=== PATIENT | male | born 1950 | race Caucasian/White ===

== ENCOUNTER → 2021-09-06 11:00 | Outpatient (BNVA) | payer MEDICARE, MEDICAID, SELFPAY | PROVIDERS: PCP Internal Medicine; Referring Provider Internal Medicine; Visit Provider Nurse Practitioner | DX: K92.1 Melena (principal); K21.9 Gastro-esophageal reflux disease without esophagitis; R10.13 Epigastric pain; R19.7 Diarrhea, unspecified | CPT/HCPCS: 99202 ==

== ENCOUNTER 2021-09-10 10:00 | Outpatient (REF) | payer MEDICARE, MEDICAID, SELFPAY ==
[2021-09-10 10:39] LABS: MANUAL DIFF FLAG NO
[2021-09-10 11:02] LABS: Basophils Absolute Auto 0.1 X10*3/uL (0.0-0.2); Basophils Percent Auto 1.2 % (0-2); Eosinophils Absolute Auto 0.3 X10*3/uL (0.0-0.4); Eosinophils Percent Auto 3.4 % (0-4); Hematocrit 48.8 % (42.0-52.0); Hemoglobin 16.6 g/dl (14.0-18.0); Imm Gran Abs Auto 0.03 X10*3/uL (0.00-0.03); Imm Gran Pct Auto 0.4 % (0.0-0.4); Lymphocytes Absolute Auto 2.5 X10*3/uL (1.2-4.9); Lymphocytes Percent Auto 29.3 % (20-40); Mean Corpuscular Hemoglobin 29.7 pg (27.0-33.0); Mean Corpuscular Volume 87.5 fL (80.0-98.0); Mean Platelet Volume 11.1 fL (9.4-12.4); Monocytes Absolute Auto 0.6 X10*3/uL (0.1-1.2); Monocytes Percent Auto 6.9 % (2-11); Neutrophils Percent Auto 58.8 % (45-73); Platelet Count 218 X10*3/uL (160-400); Red Blood Count 5.58 X10*6/uL (4.60-5.80); Red Cell Distribution Width 12.7 % (11.0-16.0); White Blood Count 8.5 X10*3/uL (4.8-10.8)
[2021-09-10 11:41] LABS: Alanine Aminotransferase 20 U/L (0-40); Albumin Level 4.3 g/dL (3.5-5.0); Alkaline Phosphatase 61 U/L (39-117); Anion Gap 15 (12-20); Aspartate Amino Transferase 12 U/L (5-37); Bilirubin Total 0.8 mg/dL (0.0-1.0); Blood Urea Nitrogen 13 mg/dL (9-16); Calcium 9.6 mg/dL (8.4-10.2); Carbon Dioxide 25 mmol/L (22-29); Chloride 107 mmol/L (96-108); Cholesterol 155 mg/dL; Estimated Glomerular Filt Rate > 60; Glucose Fasting 243 mg/dL (60-99); HDL Cholesterol 36 mg/dL; LDL Cholesterol Calculated 76 mg/dl; Potassium 3.9 mmol/L (3.3-5.1); Sodium 143 mmol/L (135-145); Total Protein 7.5 g/dL (6.5-8.0); Triglycerides 218 mg/dL
[2021-09-10 11:48] LABS: Ferritin 124 ng/mL (20-250); TSH reflex Free T4 2.34 uIU/mL (0.32-4.0)
[2021-09-10 13:45] LABS: Creatinine Urine 137.85 mg/dL; Microalbum/Creatinine Ratio Ur 22.4 ug/mg cr
[2021-09-12 06:51] LABS: Transglutaminase Ab IgG 2.6 U/mL; Transglutaminase IgA <1.0 U/mL
[2021-09-14 14:41] LABS: Vitamin D 25-OH, D2 <4 ng/mL; Vitamin D 25-OH, D3 21 ng/mL; Vitamin D 25-OH, Total 21 ng/mL (30-100)
== END 2021-09-10 10:01 | disposition home or self-care (01) ==
LOC: HO.LAB 10:00
PROVIDERS: Absent Provider Internal Medicine; Visit Provider Nurse Practitioner
DX: K92.1 Melena (principal); R10.13 Epigastric pain; E11.9 Type 2 diabetes mellitus without complications; E78.5 Hyperlipidemia, unspecified; R19.7 Diarrhea, unspecified; E55.9 Vitamin D deficiency, unspecified; Z79.4 Long term (current) use of insulin
CPT/HCPCS: 36415; 80053; 80061; 82043; 82306; 82728; 84443; 85025; 86364

== ENCOUNTER 2021-09-13 13:07 | Outpatient (REF) | payer MEDICARE, MEDICAID, SELFPAY | END 2021-09-13 13:08 | disposition home or self-care (01) | LOC: HO.LNP 13:07 | PROVIDERS: Visit Provider Nurse Practitioner | DX: R10.13 Epigastric pain (principal); K92.1 Melena | CPT/HCPCS: 87338 ==

== ENCOUNTER → 2021-11-07 12:44 | Outpatient (BNVA) | payer OTHER, MEDICAID, SELFPAY | PROVIDERS: PCP Internal Medicine; Referring Provider Internal Medicine; Visit Provider Nurse Practitioner | DX: A04.8 Other specified bacterial intestinal infections (principal); K21.9 Gastro-esophageal reflux disease without esophagitis; R19.7 Diarrhea, unspecified | CPT/HCPCS: 99212 ==

== ENCOUNTER 2023-03-20 16:19 | Emergency (ER) | payer OTHER, SELFPAY ==
--- NOTE | ~2023-03-20 | CT_ITS ---
EXAMINATION: CT ABDOMEN AND PELVIS WITHOUT CONTRAST CLINICAL INFORMATION: Left flank pain COMPARISON: None available. TECHNIQUE: Multidetector volumetric imaging was performed from the superior aspect of the liver through the pubic symphysis. Sagittal and coronal reformatted images were obtained on the technologist's workstation. This CT examination was performed using dose optimization techniques as appropriate, variously including the following: *Automated exposure control *Adjustment of mA and/or kV according to patient size (this includes techniques or standardized protocols for targeted exams where dose is matched to indication/reason for exam; i.e. extremities or head) *Use of iterative reconstruction technique DLP: 676 mGy-cm FINDINGS: There is breathing artifact present somewhat degrading portions of the study. LUNG BASES: There is some atelectatic change seen at both lung bases. No pleural or pericardial effusion. Coronary artery calcifications are present. There is a right pericardial cyst present. LIVER, GALLBLADDER, AND BILIARY TREE: The liver is upper limits of normal in size at 19 cm in vertical span.. No focal hepatic lesion or biliary ductal dilatation is present. The gallbladder is unremarkable with no evidence of radiopaque gallstones, gallbladder wall thickening, or obvious pericholecystic inflammatory changes. PANCREAS: Unremarkable. No abnormal mass or peripancreatic inflammatory change. SPLEEN: Unremarkable. An accessory spleen is present. ADRENAL GLANDS: Unremarkable. KIDNEYS AND URETERS: Right kidney: No hydronephrosis noted. Contour is a little irregular with some perinephric stranding present. Within the upper pole there is a 2 mm nonobstructing calculus. Within the interpolar region there is a 3 mm nonobstructing calculus. Right ureter appears unremarkable. Left kidney: There is moderate left hydronephrosis present with columnization of the left ureter down to the left ureterovesical junction where there is a 7 x 4 mm distal left ureteral calculus there is perirenal and periureteral fat stranding present. There is also noted to be a simple appearing 3 cm left renal cyst which does not require follow-up. Within the upper pole there are 4 and 3 mm nonobstructing calculi. BLADDER: Unremarkable. GASTROINTESTINAL TRACT: No dilated loops of large or small bowel are evident. No free air or free fluid is seen. There is colonic diverticulosis without acute diverticulitis appreciated. The appendix appears unremarkable. ABDOMINAL WALL: No significant hernia is appreciated. LYMPH NODES: No lymphadenopathy appreciated. VASCULAR: There is moderate aortoiliac artery calcified plaque present. No abdominal aortic aneurysm. PELVIC VISCERA: Enlarged prostate gland. OSSEOUS STRUCTURES: No suspicious destructive bony lesion is identified. There is multilevel degenerative disc disease and facet arthropathy within the lower lumbar spine as well as what appears to be right L5 pars defect. CT/CT abdomen pelvis wo IV con IMPRESSION: 7 x 4 mm obstructing distal left ureteral calculus at the level of the ureterovesical junction with moderate left hydronephrosis and hydroureter. Bilateral nephrolithiasis. Fleischner guidelines were followed.
[2023-03-20 16:23] VITALS: BP 178/85; PULSE 74; O2SAT 99
--- NOTE | 2023-03-20 16:24 | ED.GENADULT ---
HPI - General Adult General Chief complaint: Abdominal Pain Stated complaint: Abdominal pain, L flank pain Time Seen by Provider: 03/20/23 19:04 Source: patient Mode of arrival: EMS Limitations: language barrier (Ukrainian-speaking medical scheduler utilized) History of Present Illness HPI narrative: patient is a 72-year-old male presents emergency department for evaluation of left abdominal/flank pain since earlier this morning. With associated nausea and multiple episodes of vomiting without hematemesis. He reports that his urine appears dark in nature, with decreased urinary output. Reports a history of kidney stones, and states that this feels consistent with prior episodes. Has been many years since he had kidney stones does not have a urologist that he follows with. Denies any Fevers, chills, right-sided abdominal pain diarrhea, constipation, bloody or dark stools, chest pain, shortness of breath. Related Data Home Medications Medication Instructions Recorded Confirmed blood sugar diagnostic #10 ea 03/18/21 03/18/21 lisinopril 10 mg tablet 10 mg PO DAILY 03/18/21 03/18/21 metformin 500 mg tablet,extended 500 mg PO BID 03/18/21 03/18/21 release 24 hr pen needle, diabetic 31 gauge x #1,200 03/18/21 03/18/2101/06 Previous Rx's Medication Instructions Recorded atorvastatin 10 mg tablet 10 mg PO DAILY 90 days #90 tabs 03/18/21 insulin glargine 100 unit/mL (3 14 unit (0.14 mL) subcut BEDTIME 03/18/21 mL) subcutaneous pen 90 days #12.6 mL omeprazole 40 mg capsule,delayed 40 mg PO BID 30 days #60 caps 09/10/21 release peg 3350-electrolytes 236 240 ml PO Q10M 1 day #4,000 mL 09/12/21 gram-22.74 gram-6.74 gram-5.86 gram solution (Golytely) bismuth subsalicylate 262 mg 2 tab PO QID 14 days #112 tabs 09/17/21 chewable tablet (Bismuth) metronidazole 500 mg tablet 1,000 mg PO BID 14 days #56 tabs 09/17/21 tetracycline 500 mg capsule 1,000 mg PO Q12H 14 days #56 caps 09/17/21 cholecalciferol (vitamin D3) 25 25 mcg PO DAILY 90 days #90 caps 05/30/22 mcg (1,000 unit) capsule Allergies Allergy/AdvReac Type Severity Reaction Status Date / Time No Known Allergies Allergy Verified 03/20/23 16:34 Review of Systems Review of Systems: Constitutional : No Weight loss, No Fever, No Chills ENT/Mouth :? No sore throat, No Rhinorrhea Eyes: No Swelling, No Redness Cardiovascular : No Chest Pain, No SOB, No Edema Respiratory : No Cough, No Sputum, No Wheezing Gastrointestinal : Positive Nausea, Positive Vomiting, no Diarrhea, positive abdominal pain, No Hematochezia, No Melena Genitourinary : as per HPI? Musculoskeletal : No joint pain, No Myalgias, No Joint Swelling Skin : No Skin Lesions, No rash Neuro : No Weakness, No Numbness, No Dizziness, No Headache Psych : No Anxiety/Panic, No Depression Heme/Lymph: No Bruising, No Lymphadenopathy Endocrine : No Polyuria, No Polydipsia Yes all other systems are reviewed and are negative [facility] Past Medical History Attestation statement: The following information was validated with the patient. Source: old records reviewed Medical History Bloody stools Dyslipidemia Essential hypertension Obese Type 2 diabetes mellitus, with long-term current use of insulin Surgical History No pertinent past surgical history Family History Family History Mother No problems noted. Father No problems noted. Social History Social History Housing: Apartment Alcohol intake: never Patient Tobacco Use Status: Never used Tobacco Smoked in Last 30 Days: No e-Cigarette/Vaping Use: Never Used Second Hand Smoke Exposure: No Use of substances other than those prescribed or required for medical reasons: No Advance Directives: No Advance Directives Information Provided: Yes service: No Current occupational status: disabled Physical Exam ED Vital Signs: Vital Signs - 24 hr 03/20/23 16:33 03/20/23 22:38 Temperature 97 F Pulse Rate 66 64 Respiratory Rate 16 18 Blood Pressure 160/76 H 141/83 H Pulse Oximetry 95 95 Oxygen Delivery Method Room Air Room Air BMI result Body Mass Index 31.9 Appearance: Alert.?Oriented to person, place and time. No acute distress.?Normal affect. Eyes: Pupils equal, round and reactive to light.? ENT: Pharynx normal.?? Neck: Normal inspection.? Neck supple.?? CVS: Heart sounds normal. Normal heart rate and rhythm.? Pulses normal.?? Respiratory: No respiratory distress.? Lung sounds clear to auscultation bilaterally?? Abdomen: Soft and non-tender. Normoactive bowel sounds. no CVA tenderness?? Skin: Skin warm and dry.? Normal skin color.? Extremities: No lower extremity edema.? Neuro: Moves all extremities spontaneously. Sensation intact bilaterally. No focal neuro deficits. Ambulates with normal steady gait. Course Course Course Narrative: This is a rapid medical exam: Additional HPI, ROS, PE not included below will be deferred to primary provider. Patient is a 72-year-old male presenting to the ED with complaint of left sided abdominal/flank pain since 11am today, history of renal calculi, states feel similar. Reports nausea and vomiting. States he only urinated once today and it was very dark. Received Toradol from EMS [employer]. States pain is 8 or 9/10 after receiving the Toradol. Plan: UA, labs Reevaluation(s) Reevaluation #1: CT revealing a 7 X 4 mm obstructing distal left ureteral calculus at ureterovesical junction with moderate hydronephrosis and hydroureter. Hypertrophy these findings with patient and he verbalizes understanding. He reports that his pain is significantly improved when compared to presentation to the emergency department. He is tolerating oral intake. Discharge patient with prescription for tamsulosin, prednisone, and outpatient follow-up with Urology, provided with contact information. Time: 23:46 Medications Administered Discontinued Medications Generic Name Dose Route Start Last Admin Trade Name Freq PRN Reason Stop Dose Admin Sodium Chloride 1,000 mls @ 999 mls/hr 03/20/23 21:15 03/20/23 22:12 Ns IV 03/20/23 22:15 999 mls/hr .Q1H1M KIMI Administration Ondansetron HCl 4 mg 03/20/23 21:02 03/20/23 22:11 Ondansetron Hcl 4 Mg/2 Ml Vial IVPUSH 07/28/23 21:03 4 mg ONCE ONE Administration Medical Decision Making Medical Decision Making [facility] Narrative: patient is a 72-year-old male With past medical history of GERD, type 2 diabetes, dyslipidemia, hypertension presents emergency department for evaluation of flank/abdominal pain as per HPI. At the time my examination he is overall well-appearing, nontoxic, afebrile, without tachycardia. He received Toradol IV via EMS prior to arrival and he reports that this did help his pain significantly. Will obtain CBC to evaluate for leukocytosis/ anemia, CMP and lipase to evaluate for abnormal electrolytes /abnormal renal function/ abnormal hepatic/biliary function, and Urinalysis. will obtain CT of the abdomen and pelvis for further evaluation, concern for renal calculi, obstructive ureteral calculi, hydronephrosis, lower suspicion for diverticulitis, colitis, bowel obstruction, appendicitis Differential Diagnosis Differential Diagnoses: The differential diagnosis associated with the presentation includes ( as noted above) Admission/Observation Consideration of admission/observation: Escalation of care including admission/observation considered ( I considered hospital admission for abdominal pain, see course narrative for further detail) Lab Data [facility] Lab Attestation statement: I reviewed the patient's lab results. CBC revealing a leukocytosis likely leukmoid reaction from volume loss with vomiting, CMP overall unremarkable aside from mildly elevated BUN, urinalysis is without evidence of urinary tract infection 03/20/23 19:18 03/20/23 19:18 Labs: Lab Results 03/20/23 03/20/23 03/20/23 Range/Units 19:18 19:18 19:18 WBC 15.8 H (4.8-10.8) X10*3/uL RBC 5.19 (4.60-5.80) X10*6/uL Hgb 15.7 (14.0-18.0) g/dl Hct 45.2 (42.0-52.0) % MCV 87.1 (80.0-98.0) fL MCH 30.3 (27.0-33.0) pg MCHC 34.7 (31.0-36.0) g/dl RDW 13.0 (11.0-16.0) % Plt Count 212 (160-400) X10*3/uL MPV 10.7 (9.4-12.4) fL Immature Gran % (Auto) 0.6 H (0.0-0.4) % Neut % (Auto) 88.1 H (45-73) % Lymph % (Auto) 7.6 L (20-40) % [place] % (Auto) 3.2 (2-11) % Eos % (Auto) 0.1 (0-4) % Baso % (Auto) 0.4 (0-2) % Lymph # (Auto) 1.2 (1.2-4.9) X10*3/uL [place] # (Auto) 0.5 (0.1-1.2) X10*3/uL Eos # (Auto) 0.0 (0.0-0.4) X10*3/uL Baso # (Auto) 0.1 (0.0-0.2) X10*3/uL Abs Immat Gran (auto) 0.10 H (0.00-0.03) X10*3/uL Absolute Neuts (auto) 13.9 H (2.0-8.3) x10*3/uL Absolute Nucleated RBC 0.000 (0.0-0.012) X10*3/uL Nucleated RBC % (auto) 0.0 (0.0-0.2) /100WBC Sodium 140 (135-145) mmol/L Potassium 4.3 (3.3-5.1) mmol/L Chloride 107 (96-108) mmol/L Carbon Dioxide 20 L (22-29) mmol/L Anion Gap 17 (12-20) BUN 21 H (9-16) mg/dL Creatinine 1.06 (0.5-1.4) mg/dL Estim Creat Clear Calc 70.3 Estimated GFR > 60 Random Glucose 166 H (60-115) mg/dL Calcium 9.6 (8.4-10.2) mg/dL Magnesium 1.9 (1.6-2.6) mg/dL Total Bilirubin 0.6 (0.0-1.0) mg/dL AST 12 (5-37) U/L ALT 13 (0-40) U/L Alkaline Phosphatase 50 (39-117) U/L Total Protein 7.2 (6.5-8.0) g/dL Albumin 4.3 (3.5-5.0) g/dL Urine Color Yellow Urine Appearance Turbid Urine pH 6.0 (5.0-9.0) Ur Specific [place] 1.025 (1.005-1.025) Urine Protein 100 (2+) H (Neg-Trace) mg/dL Urine Glucose (UA) Negative (Negative) mg/dL Urine Ketones 40 (Negative) mg/dL Urine Blood Large (3+) H (Negative) Urine Nitrite Negative (Negative) Ur Leukocyte Esterase Trace H (Negative) Urine RBC >20 H (0-2) /HPF Urine WBC 6-10 H (0-5) /HPF Ur Squamous Epith Cells 0-2 (0-2) /HPF Urine Bacteria None Seen (None Seen) Hyaline Casts 0-2 (0-2) /LPF Radiology Impression Discussion of test interpretation with radiology: I have reviewed the radiologist's reading. Radiologist Impression: CT/CT abdomen pelvis wo IV con IMPRESSION: 7 x 4 mm obstructing distal left ureteral calculus at the level of the ureterovesical junction with moderate left hydronephrosis and hydroureter. ? Bilateral nephrolithiasis. Independent Historian Clinical information obtained from an independent historian. History obtained from or confirmed by: EMS ( obtained history from EMS personnel confirming patient's reported HPI) Discharge Plan Discharge Clinical Impression: Hydronephrosis with urinary obstruction due to ureteral calculus Patient Disposition: Home, Self-Care Instructions: Hydronephrosis (ED), Ureteral Stones (ED) Additional Instructions: shwetha camacho Prescriptions: No Action omeprazole 40 mg capsule,delayed release(DR/EC) 40 mg PO BID 30 Days Qty: 60 3RF peg 3350-electrolytes [Golytely] 236-22.74-6.74 -5.86 gram recon soln 240 ml PO Q10M 1 Days Qty: 4000 0RF Rx Instructions: until fecal effluent is clear; do not exceed a total volume of 2,000 mL metronidazole 500 mg tablet 1,000 mg PO BID 14 Days Qty: 56 0RF bismuth subsalicylate [Bismuth] 262 mg tablet,chewable 2 tab PO QID 14 Days Qty: 112 0RF tetracycline 500 mg capsule 1,000 mg PO Q12H 14 Days Qty: 56 0RF cholecalciferol (vitamin D3) 25 mcg (1,000 unit) capsule 25 mcg PO DAILY 90 Days Qty: 90 1RF (DME) pen needle, diabetic 31 gauge x 5/16 needle See Rx Instructions subcut DAILY Qty: 1200 Rx Instructions: As directed metformin 500 mg tablet extended release 24 hr 500 mg PO BID lisinopril 10 mg tablet 10 mg PO DAILY (DME) FreeStyle Lite Strips Strip See Rx Instructions Not Applicable .MEDSUPPLY Qty: 10 Rx Instructions: As directed insulin glargine 100 unit/mL (3 mL) insulin pen 14 unit subcut BEDTIME 90 Days Qty: 12.6 3RF atorvastatin 10 mg tablet 10 mg PO DAILY 90 Days Qty: 90 1RF
[2023-03-20 16:33] VITALS: BP 160/76; PULSE 66; RESP 16; TEMP 36.1; O2SAT 95; BMI 31.9
[2023-03-20 19:26] LABS: MANUAL DIFF FLAG NO
[2023-03-20 19:27] LABS: Basophils Absolute Auto 0.1 X10*3/uL (0.0-0.2); Basophils Percent Auto 0.4 % (0-2); Eosinophils Percent Auto 0.1 % (0-4); Hematocrit 45.2 % (42.0-52.0); Hemoglobin 15.7 g/dl (14.0-18.0); Imm Gran Pct Auto 0.6 % (0.0-0.4); Lymphocytes Absolute Auto 1.2 X10*3/uL (1.2-4.9); Lymphocytes Percent Auto 7.6 % (20-40); Mean Corpuscular HGB Conc 34.7 g/dl (31.0-36.0); Mean Corpuscular Hemoglobin 30.3 pg (27.0-33.0); Mean Corpuscular Volume 87.1 fL (80.0-98.0); Mean Platelet Volume 10.7 fL (9.4-12.4); Monocytes Absolute Auto 0.5 X10*3/uL (0.1-1.2); Monocytes Percent Auto 3.2 % (2-11); Neutrophils Absolute Auto 13.9 x10*3/uL (2.0-8.3); Neutrophils Percent Auto 88.1 % (45-73); Platelet Count 212 X10*3/uL (160-400); Red Blood Count 5.19 X10*6/uL (4.60-5.80); White Blood Count 15.8 X10*3/uL (4.8-10.8)
[2023-03-20 19:30] LABS: Appearance Urine Turbid; Color Urine Yellow; Glucose Urine UA Negative (Negative); Leukocyte Esterase Urine Trace (Negative); Nitrite Urine Negative (Negative); Specific Gravity - Urine 1.025 (1.005-1.025); UMIC TRIGGER UACC YES; Urine Blood Large (3+) (Negative); Urine Ketones 40 mg/dL (Negative); Urine Protein 100 (2+) mg/dL (Neg-Trace)
[2023-03-20 19:34] LABS: Bacteria Urine None Seen (None Seen); Hyaline Casts Urine 0-2 /LPF (0-2); RBC Urine >20 /HPF (0-2); Squamous Epithelial Cell Urine 0-2 /HPF (0-2); UACC Culture Trigger YES
[2023-03-20 19:52] LABS: Alanine Aminotransferase 13 U/L (0-40); Albumin Level 4.3 g/dL (3.5-5.0); Alkaline Phosphatase 50 U/L (39-117); Anion Gap 17 (12-20); Aspartate Amino Transferase 12 U/L (5-37); Bilirubin Total 0.6 mg/dL (0.0-1.0); Blood Urea Nitrogen 21 mg/dL (9-16); Calcium 9.6 mg/dL (8.4-10.2); Carbon Dioxide 20 mmol/L (22-29); Chloride 107 mmol/L (96-108); Creatinine Clr Calc Pharmacy 70.3; Estimated Glomerular Filt Rate > 60; Glucose Random 166 mg/dL (60-115); Magnesium 1.9 mg/dL (1.6-2.6); Potassium 4.3 mmol/L (3.3-5.1); Sodium 140 mmol/L (135-145); Total Protein 7.2 g/dL (6.5-8.0)
[2023-03-20] MEDS: ondansetron HCL 4 MG/2 ML VIAL IVPUSH (22:11)
[2023-03-20] MEDS: 0.9 % Sodium Chloride 1,000 ML 999 ML IV (22:12)
[2023-03-20 22:38] VITALS: BP 141/83; PULSE 64; RESP 18; O2SAT 95
[2023-03-21 00:54] VITALS: BP 164/89; PULSE 69; RESP 18; TEMP 36.6; O2SAT 94
[2023-03-21] MEDS: predniSONE 20 MG TABLET PO (01:12)
[2023-03-21] MEDS: Tamsulosin HCL 0.4 MG CAPSULE PO (01:12)
== END 2023-03-21 01:23 | disposition home or self-care (01) ==
PROVIDERS: Physician Assistant Medical; Emergency Provider Emergency Medicine
DX: N13.2 Hydronephrosis with renal and ureteral calculous obstruction (principal); Z79.899 Other long term (current) drug therapy
CPT/HCPCS: 36415; 74176; 80053; 81001; 83735; 85025; 87086; 99284; J2405

== ENCOUNTER 2023-03-24 10:14 | Outpatient (AMB) | payer OTHER, SELFPAY ==
--- NOTE | 2023-03-24 10:24 | MHC.OFFVIS ---
Intake Vital Signs 03/24/23 10:28 Weight 213 lb 6.519 oz BP 130/88 Blood Pressure Location Lt radial Position Sitting Intake Visit Reasons: skin cyst rt upper back Intake Note: Patient is seen in office for evaluation and treatment of a right upper back cyst. Patient c/o: onset for many yrs, has pop it in the past, has a black dot, unable to squeeze it any longer, denies any other concerns Compression Molding Machine Setter Required: Yes Compression Molding Machine Setter Language: It Admin Name: Louisa VELOZ Information Interpreted: non-clinical & clinical Retail Merchandising Coordinator: Retail Merchandising Coordinator Present Accompanied by: Self / Same As Patient Allergies No Known Allergies Allergy (Verified 03/24/23 10:31) Medication List - Last Reconciled 03/24/23 by Duke Rios MD atorvastatin 10 mg PO DAILY 90 days bismuth subsalicylate (Bismuth) 2 tabs PO QID 14 days blood sugar diagnostic As directed cholecalciferol (vitamin D3) 25 mcg PO DAILY 90 days insulin glargine 14 units (0.14 mL) subcut BEDTIME 90 days lisinopril 10 mg PO DAILY metformin ER 500 mg PO BID metronidazole 1,000 mg (2 x 500 mg) PO BID 14 days omeprazole 40 mg PO BID 30 days peg 3350-electrolytes 236-22.74-6.74 -5.86 gram (Golytely) 240 mL PO Q10M 1 day pen needle, diabetic As directed prednisone 20 mg PO DAILY tamsulosin 0.4 mg PO BEDTIME tetracycline 1,000 mg (2 x 500 mg) PO Q12H 14 days HPI HPI Comments History of Present Illness Details 72-year-old male patient presenting with a sebaceous cyst of the back. He has had for many years and has gradually increased in size. He was occasionally able to pop the cyst however now he is unable to drain with pressure. Does have some discomfort associated with the cyst but denies any history of infection. He presents to discuss excision of this sebaceous cyst. [facility] Medical History Bloody stools Dyslipidemia Essential hypertension Obese Type 2 diabetes mellitus, with long-term current use of insulin Surgical History No pertinent past surgical history Family History Mother No problems noted. Father No problems noted. Social History Housing: Apartment Alcohol intake: never Patient Tobacco Use Status: Never used Tobacco e-Cigarette/Vaping Use: Never Used Second Hand Smoke Exposure: No service: No Current occupational status: disabled Review of Systems Const All systems reviewed & are unremarkable except as noted in HPI and below Denies chills, Denies fever(s), Denies headache(s), Denies poor appetite and Denies weakness ENT Denies headache(s) Card Denies chest pain, Denies irregular heart rhythm, Denies palpitations and Denies dyspnea Resp Denies cough, Denies excessive phlegm production and Denies dyspnea GI Denies abdominal pain, Denies bloating, Denies change in bowel habits, Denies constipation, Denies heartburn, Denies diarrhea, Denies nausea and Denies vomiting Denies difficulty urinating and Denies urinary frequency Musc Denies back pain, Denies muscle weakness and Denies numbness Skin/Breast Reports as per HPI, Denies changing lesions and Denies unusual bruising Neuro Denies headache(s), Denies numbness, Denies paresthesias and Denies weakness Psych Denies anxiety and Denies depression Endo Denies palpitations [place]/Lymph Denies lymphadenopathy Physical Exam Vital Signs: Last Vital Signs BP 130/88 03/24/23 10:28 Const General: cooperative and no acute distress Nutritional Appearance: well nourished Orientation/consciousness: patient oriented x3 Limitations: no limitations HEENT Head: Yes normocephalic and Yes atraumatic Ears: hearing grossly normal bilaterally Resp Effort & Inspection: normal respiratory effort, no audible wheezes, no cough and no respiratory distress Cardio Jugular venous distension: no JVD GI Inspection: Yes normal to inspection Back/Spine/Pelvis Back/spine/pelvis image: 1. Cyst measuring approximately 3 cm in diameter located in the posterior right shoulder with a central punctum/black head. No evidence of fluctuance, erythema, or discharge. Skin Other: Warm, dry, no rash Neuro General: patient oriented x3 Extrem General: Yes no clubbing, cyanosis or edema Assessment & Plan Assessment & Plan (1) Sebaceous cyst: Code(s): L72.3 - Sebaceous cyst Plan 72-year-old male patient with an enlarging sebaceous cyst of the right posterior shoulder. I recommended excision of this lesion as a minor surgery under local anesthesia. After discussion of the procedure, risks, and alternatives, he consents to the surgery. This will be scheduled as a minor surgery under local anesthesia. Coding Level of Care Code New Pt Level 4 (73171) Diagnoses Sebaceous cyst L72.3
[2023-03-24 10:28] VITALS: BP 130/88
== END 2023-03-24 10:42 | disposition home or self-care (01) ==
PROVIDERS: PCP Internal Medicine Geriatric Medicine; Referring Provider Internal Medicine Geriatric Medicine; Visit Provider Surgery
DX: L72.3 Sebaceous cyst (principal)
CPT/HCPCS: 99204

== ENCOUNTER → 2023-03-24 10:14 | Outpatient (BNVA) | payer OTHER, SELFPAY | PROVIDERS: PCP Internal Medicine Geriatric Medicine; Referring Provider Internal Medicine Geriatric Medicine; Visit Provider Surgery | DX: L72.3 Sebaceous cyst (principal) | CPT/HCPCS: 99202 ==

== ENCOUNTER 2023-04-08 11:42 | Outpatient (REF) | payer OTHER, SELFPAY ==
[2023-04-08 13:08] LABS: MANUAL DIFF FLAG NO
[2023-04-08 13:19] LABS: Basophils Absolute Auto 0.1 X10*3/uL (0.0-0.2); Basophils Percent Auto 1.2 % (0-2); Eosinophils Absolute Auto 0.3 X10*3/uL (0.0-0.4); Eosinophils Percent Auto 3.4 % (0-4); Hematocrit 47.5 % (42.0-52.0); Hemoglobin 16.2 g/dl (14.0-18.0); Imm Gran Abs Auto 0.04 X10*3/uL (0.00-0.03); Imm Gran Pct Auto 0.4 % (0.0-0.4); Lymphocytes Absolute Auto 2.3 X10*3/uL (1.2-4.9); Lymphocytes Percent Auto 24.1 % (20-40); Mean Corpuscular HGB Conc 34.1 g/dl (31.0-36.0); Mean Corpuscular Hemoglobin 30.5 pg (27.0-33.0); Mean Corpuscular Volume 89.5 fL (80.0-98.0); Mean Platelet Volume 11.7 fL (9.4-12.4); Monocytes Absolute Auto 0.7 X10*3/uL (0.1-1.2); Monocytes Percent Auto 6.9 % (2-11); Platelet Count 208 X10*3/uL (160-400); Red Blood Count 5.31 X10*6/uL (4.60-5.80); Red Cell Distribution Width 13.2 % (11.0-16.0); White Blood Count 9.4 X10*3/uL (4.8-10.8)
[2023-04-08 13:53] LABS: Lactate Dehydrogenase 201 U/L (118-273)
== END 2023-04-08 11:43 | disposition home or self-care (01) ==
LOC: HO.HHCL 11:42
PROVIDERS: Visit Provider Internal Medicine
DX: N20.0 Calculus of kidney (principal); D72.823 Leukemoid reaction
CPT/HCPCS: 36415; 83615; 84550; 85025

== ENCOUNTER 2023-04-16 12:59 | Outpatient (REF) | payer OTHER, SELFPAY ==
[2023-04-16 13:05] VITALS: BP 170/87; PULSE 86; RESP 16; TEMP 36.4; O2SAT 97
[2023-04-16 13:23] VITALS: BMI 32.6
[2023-04-16 13:45] VITALS: BP 159/87; PULSE 80; RESP 16; O2SAT 97
--- NOTE | 2023-04-16 14:07 | W.PM.OPN ---
Operative Note Operative Note Date of Service: 04/16/23 Narrative: Preoperative diagnosis: Epidermal inclusion cyst posterior right shoulder Postoperative diagnosis: Same Procedure: Excision of epidermal inclusion cyst posterior right shoulder Surgeon: Duke Rios MD Pneumatic Tester: Iqra Hagen PA-C Anesthesia: Sensorcaine 0.5% with epinephrine Indications for procedure: 72-year-old male patient with enlarging sebaceous cyst of the posterior right shoulder with previous drainage. On examination there is a cyst measuring approximately 3 cm in diameter. Operative findings: 3 cm epidermal inclusion cysts (sebaceous cyst) located in the upper posterior right shoulder Specimen: Epidermal inclusion cyst posterior right shoulder Estimated blood loss: 2 mL Complications: None Procedure details: Patient was brought to the minor surgery suite placed in a prone position. Patient confirm the site of surgery in the right posterior shoulder. After assuring informed consent the skin was prepped with Betadine and draped in a sterile fashion. Local anesthesia was then infiltrated in longitudinal fashion around the cyst wall. Elliptical incision oriented longitudinally was then created with a 15 blade. This then carried down through subcutaneous tissue and around the cyst wall. Dissection was then used to dissect the cyst off the subcutaneous tissue. The lesion was passed off the table and sent to pathology for further examination. After assuring adequate hemostasis the dermis was reapproximated using interrupted 3-0 Polysorb sutures. Skin was then closed using interrupted 3-0 nylon sutures. Sterile dressings consisting of 2 x 2 gauze and Tegaderm were then applied. The patient tolerated the procedure well. He was discharged to home in stable condition.
== END 2023-04-16 13:00 | disposition home or self-care (01) ==
LOC: HO.MS 12:59
PROVIDERS: PCP Internal Medicine Geriatric Medicine; Visit Provider Surgery
PROC: (CPT 11403; principal; 2023-04-16 13:00)
DX: L72.0 Epidermal cyst (principal)
CPT/HCPCS: 11403; 88304

== ENCOUNTER → 2023-04-16 12:59 | Outpatient (BNV) | payer OTHER, SELFPAY | PROVIDERS: PCP Internal Medicine Geriatric Medicine; Visit Provider Surgery | DX: L72.0 Epidermal cyst (principal) | CPT/HCPCS: 23075 ==

== ENCOUNTER 2023-04-24 10:22 | Outpatient (AMB) | payer OTHER, SELFPAY ==
--- NOTE | 2023-04-24 10:34 | A.OFFVIS_ITS ---
Intake Vital Signs 04/24/23 10:49 Height 5 ft 7 in Weight 214 lb BMI 33.5 BP 147/82 H Blood Pressure Location Lt brachial Position Sitting Pulse 97 Intake Visit Reasons: S/P Exc Leo Cyst right post shoulder Intake Note: Patient is seen in office for post op assessment post excision of sebaceous cyst of the right posterior shoulder. Patient c/o: denies any concerns at the time of visit Bad Credit Collector Required: No Accompanied by: Self / Same As Patient Allergies No Known Allergies Allergy (Verified 04/24/23 10:49) HPI HPI Comments History of Present Illness Details Patient returns 1 week following excision of a right posterior shoulder epidermal inclusion cyst. He tolerated the procedure well returns today for suture removal. Pathology confirmed an epidermal inclusion cyst. [facility] Medical History (Updated 03/24/23 @ 10:43 by Duke Rios MD) Bloody stools Dyslipidemia Essential hypertension Obese Type 2 diabetes mellitus, with long-term current use of insulin Surgical History H/O excision of epidermal inclusion cyst (04/16/23) No pertinent past surgical history Family History Mother No problems noted. Father No problems noted. Social History Housing: Apartment Alcohol intake: never Patient Tobacco Use Status: Never used Tobacco e-Cigarette/Vaping Use: Never Used Second Hand Smoke Exposure: No service: No Current occupational status: disabled Physical Exam Const General: no acute distress Back/Spine/Pelvis Other: Excision site in the posterior right shoulder is clean, dry, and intact. Sutures removed and Steri-Strips applied. Back/spine/pelvis image: 1. Incision posterior right shoulder. Assessment & Plan Assessment & Plan (1) Sebaceous cyst: Code(s): L72.3 - Sebaceous cyst Plan Patient returns 1 week following excision of an epidermal inclusion cyst of the posterior right shoulder. He tolerated the procedure well and his wounds are healing nicely. He should follow up as needed. Coding Level of Care Code Global (65514) Diagnoses Sebaceous cyst L72.3
[2023-04-24 10:49] VITALS: BP 147/82; PULSE 97; BMI 33.5
== END 2023-04-24 10:49 | disposition home or self-care (01) ==
PROVIDERS: PCP Internal Medicine Geriatric Medicine; Visit Provider Surgery
DX: L72.3 Sebaceous cyst (principal)
CPT/HCPCS: 99024

== ENCOUNTER → 2023-04-24 10:22 | Outpatient (BNVA) | payer OTHER, SELFPAY | PROVIDERS: PCP Internal Medicine Geriatric Medicine; Visit Provider Surgery ==

== ENCOUNTER 2023-05-29 12:44 | Outpatient (AMB) | payer OTHER, SELFPAY ==
--- NOTE | 2023-05-29 12:58 | MHC.OFFVIS ---
Intake Intake Visit Reasons: Calculus of kidney Intake Note: New Patient presents for initial visit for kidney stone Urology Medications: none Blood Thinner: none Molder Fitting Required: Yes Accompanied by: Self / Same As Patient Allergies No Known Allergies Allergy (Verified 05/29/23 13:35) Medication List - Last Reconciled 05/29/23 by NATACHA Odonnell atorvastatin 10 mg PO DAILY 90 days bismuth subsalicylate (Bismuth) 2 tabs PO QID 14 days blood sugar diagnostic As directed cholecalciferol (vitamin D3) 25 mcg PO DAILY 90 days insulin glargine 14 units (0.14 mL) subcut BEDTIME 90 days lisinopril 10 mg PO DAILY metformin ER 500 mg PO BID metronidazole 1,000 mg (2 x 500 mg) PO BID 14 days omeprazole 40 mg PO BID 30 days peg 3350-electrolytes 236-22.74-6.74 -5.86 gram (Golytely) 240 mL PO Q10M 1 day pen needle, diabetic As directed tetracycline 1,000 mg (2 x 500 mg) PO Q12H 14 days HPI HPI Comments History of Present Illness Details Eddie is a very pleasant 72-year-old [place]guill[place]-speaking male patient of Dr. Sevilla. He has a past medical history of type 2 diabetes, dyslipidemia, hypertension, and obesity. He presents to the office today as a new patient for nephrolithiasis. Recent CT imaging results reviewed with the patient today. Right kidney with no hydronephrosis noted. Within the upper pole there is 2 mm nonobstructing calculus. Within the interpolar region there is a 3 mm nonobstructing calculus. Right ureter appears unremarkable. Left kidney with moderate left hydronephrosis present with 7 x 4 mm dust left ureteral calculus. There is also a 3 mm left renal cyst which is not require follow-up imaging per radiology report. Within the upper pole there are for and 3 mm nonobstructing calculi. The bladder is unremarkable. In discussion with the patient today reports to be doing and feeling well. He reports believing to have passed stone since this CT scan. He reports a longstanding history of nephrolithiasis with previous surgical intervention. However, is not sure where he previously followed up. He currently denies any bothersome urinary concerns. He does endorse to urinary frequency however does not find this bothersome. He denies urinary urgency, urinary frequency, incontinence, nocturia, hematuria, dysuria, foul smelling urine, changes to urinary stream, flank pain, fever, and or chills. He is happy with his current voiding parameters. Discussed obtaining renal ultrasound for further assessment and evaluation and to ensure resolution of hydronephrosis as patient reports he has since voided renal calculi. Discussed and stressed the importance of drinking plenty of water daily. Discussed adding 1 oz of lemon juice to water daily. Discussed at length potential causes for nephrolithiasis. In office urinalysis results reviewed with the patient today. [facility] Medical History Bloody stools Obese Type 2 diabetes mellitus, with long-term current use of insulin Dyslipidemia Essential hypertension Surgical History H/O excision of epidermal inclusion cyst (04/16/23) No pertinent past surgical history Family History Mother No problems noted. Father No problems noted. Social History Housing: Apartment Alcohol intake: never Patient Tobacco Use Status: Never used Tobacco e-Cigarette/Vaping Use: Never Used Second Hand Smoke Exposure: No service: No Current occupational status: disabled Review of Systems Const Reports as per HPI Eyes Reports no additional complaints ENT Reports no additional complaints Card Reports as per HPI Resp Reports no additional complaints GI Reports no additional complaints Reports as per HPI Musc Reports no additional complaints Neuro Reports no additional complaints Psych Reports no additional complaints Endo Reports as per HPI Collin/Lymph Reports no additional complaints Aller/Immun Reports no additional complaints Physical Exam Const General: cooperative, healthy appearing, comfortable, no acute distress, well developed, alert and awake Orientation/consciousness: patient oriented x3 Limitations: no limitations HEENT Head: Yes normal to inspection, Yes normocephalic and Yes atraumatic Ears: hearing grossly normal bilaterally Eyes General: appearance normal, both eyes and all related structures Neck Neck: Yes normal visual inspection and Yes trachea midline Chest Chest palpation & inspection: normal inspection of the chest Resp Effort & Inspection: normal respiratory effort and able to speak in complete sentences Cardio Rate: regular rate GI Inspection: Yes normal to inspection General: Yes no CVA tenderness Back/Spine/Pelvis Back: no CVA tenderness Skin General skin exam: no rashes or lesions noted Neuro General: patient oriented x3 Extrem General: Yes normal to inspection Psych Appearance: grossly normal and well kempt Mental Status: mental status grossly normal Speech and movement: Normal speech and movement present and Clear speech present Affect: normal affect Attitude: cooperative Thought process: Normal thought process present Thought content: Normal thought content present Insight: Fair insight present (Psych) Judgement: Fair judgement present (Psych) Results AMB Urinalysis, Automated UA Leukoctes 0 Yoshi/uL Last Edit by Coiney on 05/29/23 13:15 UA Nitrite Negative Last Edit by Coiney on 05/29/23 13:15 UA Urobilinogen 0.2 mg/dL Last Edit by Coiney on 05/29/23 13:15 UA Protein 15 mg/dL Last Edit by Coiney on 05/29/23 13:15 UA pH 5.5 Last Edit by [email or web address] on 05/29/23 13:15 UA Blood 0 Raman/uL Last Edit by Coiney on 05/29/23 13:15 UA Specific Cash 1.025 Last Edit by Coiney on 05/29/23 13:15 UA Ketone Negative Last Edit by Coiney on 05/29/23 13:15 UA Bilirubin 1 mg/dL Last Edit by Coiney on 05/29/23 13:15 UA Glucose 0 mg/dL Last Edit by Coiney on 05/29/23 13:15 Results Reviewed Results Reviewed: Laboratory Last Values Urine pH (Auto) 5.5 05/29/23 13:06 Specific Cash (Auto) 1.025 05/29/23 13:06 Urine Protein (Auto) 15 mg/dL 05/29/23 13:06 Glucose (UA)(Auto) 0 mg/dL 05/29/23 13:06 Urine Ketones (Auto) Negative 05/29/23 13:06 Urine Blood (Auto) 0 Raman/uL 05/29/23 13:06 Urine Nitrite (Auto) Negative 05/29/23 13:06 Urine Bilirubin (Auto) 1 mg/dL 05/29/23 13:06 Urine Urobilinogen (Auto) 0.2 mg/dL 05/29/23 13:06 Leukocyte Esterase (Auto) 0 Yoshi/uL 05/29/23 13:06 Date of Service: 03/20/23 EXAMINATION: CT ABDOMEN AND PELVIS WITHOUT CONTRAST FINDINGS: There is breathing artifact present somewhat degrading portions of the study. LUNG BASES: There is some atelectatic change seen at both lung bases. No pleural or pericardial effusion. Coronary artery calcifications are present. There is a right pericardial cyst present. LIVER, GALLBLADDER, AND BILIARY TREE: The liver is upper limits of normal in size at 19 cm in vertical span.. No focal hepatic lesion or biliary ductal dilatation is present. The gallbladder is unremarkable with no evidence of radiopaque gallstones, gallbladder wall thickening, or obvious pericholecystic inflammatory changes. PANCREAS: Unremarkable. No abnormal mass or peripancreatic inflammatory change. SPLEEN: Unremarkable. An accessory spleen is present. ADRENAL GLANDS: Unremarkable. KIDNEYS AND URETERS: Right kidney: No hydronephrosis noted. Contour is a little irregular with some perinephric stranding present. Within the upper pole there is a 2 mm nonobstructing calculus. Within the interpolar region there is a 3 mm nonobstructing calculus. Right ureter appears unremarkable. Left kidney: There is moderate left hydronephrosis present with columnization of the left ureter down to the left ureterovesical junction where there is a 7 x 4 mm distal left ureteral calculus there is perirenal and periureteral fat stranding present. There is also noted to be a simple appearing 3 cm left renal cyst which does not require follow-up. Within the upper pole there are 4 and 3 mm nonobstructing calculi. BLADDER: Unremarkable. GASTROINTESTINAL TRACT: No dilated loops of large or small bowel are evident. No free air or free fluid is seen. There is colonic diverticulosis without acute diverticulitis appreciated. The appendix appears unremarkable. ABDOMINAL WALL: No significant hernia is appreciated. LYMPH NODES: No lymphadenopathy appreciated. VASCULAR: There is moderate aortoiliac artery calcified plaque present. No abdominal aortic aneurysm. PELVIC VISCERA: Enlarged prostate gland. OSSEOUS STRUCTURES: No suspicious destructive bony lesion is identified. There is multilevel degenerative disc disease and facet arthropathy within the lower lumbar spine as well as what appears to be right L5 pars defect. IMPRESSION: 7 x 4 mm obstructing distal left ureteral calculus at the level of the ureterovesical junction with moderate left hydronephrosis and hydroureter. Bilateral nephrolithiasis. Assessment & Plan Assessment & Plan (1) Renal cyst: Code(s): N28.1 - Cyst of kidney, acquired (2) Nephrolithiasis: Code(s): N20.0 - Calculus of kidney (3) Urinary frequency: Code(s): R35.0 - Frequency of micturition Plan In office urinalysis results reviewed with the patient today; as noted above. Recent CT imaging results reviewed with the patient today; as noted above. Patient reports to have since passed renal calculi Will obtain retroperitoneal ultrasound for further assessment evaluation. Discussed at length importance of managing diabetes for improvement in lower urinary tract symptoms as well as overall health and well-being. Start vitamin B6 as discussed and prescribed. Discussed adding 1 oz of lemon juice to water daily. Discussed at length importance of drinking plenty of water daily. Patient denies any bothersome urinary issues. Will obtain PSA for further assessment evaluation. Follow-up in 4-6 weeks with imaging to be completed prior; or sooner with any issues, concerns, and or questions. Orders: Orders AMB Urinalysis Automated 05/29/23 Z13.9 - Encounter for screening, unspecified US renal BI 05/29/23 N20.0 - Calculus of kidney Prostate Specific Antigen 05/29/23 N40.0 - Benign prostatic hyperplasia without lower urinary tract symptoms Medications: New pyridoxine (vitamin B6) 100 mg PO DAILY 90 days 90 tabs 3RF N13.2 - Hydronephrosis with renal and ureteral calculous obstruction Patient Instructions: The patient had an opportunity to ask questions regarding the treatment plan. All questions were answered. Physical exam, labs, and imaging were discussed and reviewed in detail. As well as risks, benefits, and discussion of treatment choices. No major barriers to understanding were identified. The patient expressed understanding and agreement with the above treatment plan. The patient was made aware they should contact our office by phone for worsening of their current condition, the appearance of new symptoms, or with any questions or concerns. Compliance is encouraged with any medications and follow up testing that is ordered. It is a privilege to be allowed the opportunity to participate in? your urological care.? Again, if you have any questions or concerns If you have any questions or concerns please do not hesitate to contact me. The office is [phone]. This note is constructed using voice recognition software. While every effort has been made to ensure accuracy conveyor loader errors may have been included. Yours sincerely, ADRIANE Odonnell-YAHIR Coding Level of Care Code New Pt Level 4 (16782) Diagnoses Renal cyst N28.1 Nephrolithiasis N20.0 Urinary frequency R35.0
== END 2023-05-29 13:39 | disposition home or self-care (01) ==
PROVIDERS: PCP Internal Medicine Geriatric Medicine; Visit Provider Nurse Practitioner Family
DX: N28.1 Cyst of kidney, acquired (principal); N20.0 Calculus of kidney; R35.0 Frequency of micturition
CPT/HCPCS: 99204

== ENCOUNTER → 2023-05-29 12:44 | Outpatient (BNVA) | payer OTHER, SELFPAY | PROVIDERS: PCP Internal Medicine Geriatric Medicine; Visit Provider Nurse Practitioner Family | DX: N28.1 Cyst of kidney, acquired (principal); N20.0 Calculus of kidney; R35.0 Frequency of micturition | CPT/HCPCS: 81003 ==

== ENCOUNTER 2023-06-26 09:35 | Outpatient (REF) | payer OTHER, SELFPAY ==
[2023-06-26 11:47] LABS: Anion Gap 14 (12-20); Blood Urea Nitrogen 14 mg/dL (9-16); Calcium 9.9 mg/dL (8.4-10.2); Carbon Dioxide 26 mmol/L (22-29); Chloride 106 mmol/L (96-108); Estimated Glomerular Filt Rate > 60; Glucose Random 168 mg/dL (60-115); Potassium 4.4 mmol/L (3.3-5.1); Sodium 142 mmol/L (135-145)
[2023-06-26 12:08] LABS: Prostate Specific Antigen 0.67 ng/mL (<0.05-4.0)
[2023-06-26 12:19] LABS: Vitamin B12 222 pg/mL (200-900)
== END 2023-06-26 09:36 | disposition home or self-care (01) ==
LOC: HO.HHCL 09:35
PROVIDERS: Referring Provider Internal Medicine Geriatric Medicine; Visit Provider Nurse Practitioner Family
DX: Z12.5 Encounter for screening for malignant neoplasm of prostate (principal); N40.0 Benign prostatic hyperplasia without lower urinary tract symptoms; I10 Essential (primary) hypertension; E11.69 Type 2 diabetes mellitus with other specified complication; Z79.4 Long term (current) use of insulin
CPT/HCPCS: 36415; 80048; 82607; 84153

== ENCOUNTER 2024-02-26 08:12 | Outpatient (REF) | payer OTHER, SELFPAY ==
[2024-02-26 11:14] LABS: MANUAL DIFF FLAG NO
[2024-02-26 11:29] LABS: Basophils Absolute Auto 0.1 X10*3/uL (0.0-0.2); Basophils Percent Auto 1.1 % (0-2); Eosinophils Absolute Auto 0.3 X10*3/uL (0.0-0.4); Eosinophils Percent Auto 2.6 % (0-4); Hematocrit 52.6 % (42.0-52.0); Imm Gran Abs Auto 0.04 X10*3/uL (0.00-0.03); Imm Gran Pct Auto 0.4 % (0.0-0.4); Lymphocytes Absolute Auto 2.8 X10*3/uL (1.2-4.9); Lymphocytes Percent Auto 24.2 % (20-40); Mean Corpuscular HGB Conc 34.2 g/dl (31.0-36.0); Mean Corpuscular Hemoglobin 30.8 pg (27.0-33.0); Mean Corpuscular Volume 90.1 fL (80.0-98.0); Mean Platelet Volume 11.3 fL (9.4-12.4); Monocytes Absolute Auto 0.8 X10*3/uL (0.1-1.2); Monocytes Percent Auto 6.9 % (2-11); Neutrophils Absolute Auto 7.4 x10*3/uL (2.0-8.3); Neutrophils Percent Auto 64.8 % (45-73); Platelet Count 251 X10*3/uL (160-400); Red Blood Count 5.84 X10*6/uL (4.60-5.80); Red Cell Distribution Width 13.5 % (11.0-16.0); White Blood Count 11.4 X10*3/uL (4.8-10.8)
[2024-02-26 11:37] LABS: Alanine Aminotransferase 17 U/L (0-40); Albumin Level 4.5 g/dL (3.5-5.0); Alkaline Phosphatase 57 U/L (39-117); Anion Gap 13 (12-20); Aspartate Amino Transferase 18 U/L (5-37); Bilirubin Direct 0.3 mg/dL (0.0-0.5); Bilirubin Total 0.7 mg/dL (0.0-1.0); Blood Urea Nitrogen 16 mg/dL (9-16); Calcium 9.8 mg/dL (8.4-10.2); Carbon Dioxide 24 mmol/L (22-29); Chloride 109 mmol/L (96-108); Cholesterol 144 mg/dL (<200); Estimated Glomerular Filt Rate > 60; Glucose Random 152 mg/dL (60-115); HDL Cholesterol 37 mg/dL (>40); LDL Cholesterol Calculated 65 mg/dL (<100); Potassium 4.3 mmol/L (3.3-5.1); Sodium 142 mmol/L (135-145); Total Protein 7.8 g/dL (6.5-8.0); Triglycerides 213 mg/dL (<150)
[2024-02-26 12:04] LABS: Creatinine Urine 91.91 mg/dL; Microalbum/Creatinine Ratio Ur 7.6 ug/mg cr (<30)
== END 2024-02-26 08:13 | disposition home or self-care (01) ==
LOC: HO.HHCL 08:12
PROVIDERS: Visit Provider Internal Medicine Geriatric Medicine
DX: E11.69 Type 2 diabetes mellitus with other specified complication (principal); E78.5 Hyperlipidemia, unspecified; I10 Essential (primary) hypertension; R19.5 Other fecal abnormalities; Z79.4 Long term (current) use of insulin
CPT/HCPCS: 36415; 80048; 80061; 80076; 82043; 82570; 85025

== ENCOUNTER 2024-07-06 10:35 | Outpatient (REF) | payer OTHER, SELFPAY ==
[2024-07-07 11:03] LABS: H Pylori Breath Test Positive (Negative)
== END 2024-07-06 10:36 | disposition home or self-care (01) ==
LOC: HO.LNP 10:35
PROVIDERS: PCP Internal Medicine Geriatric Medicine; Visit Provider Nurse Practitioner
DX: K21.9 Gastro-esophageal reflux disease without esophagitis (principal)
CPT/HCPCS: 83013

== ENCOUNTER 2024-07-06 10:35 | Outpatient (AMB) | payer OTHER, SELFPAY ==
[2024-07-06 10:46] VITALS: BP 132/76; PULSE 83; BMI 33.3
--- NOTE | 2024-07-06 10:46 | A.OFFVIS_ITS ---
Vital Signs 07/06/24 10:46 Height 5 ft 7 in Weight 212 lb 8.41 oz BMI 33.3 BP 132/76 Blood Pressure Location Lt brachial Position Sitting Pulse 83 Intake Visit Reasons: pt req appointment Intake Note: Eddie presents in office today in follow up of GERD. CC: Patient c/o pain from esophagus when he gets hungry and rectal bleeding. Denies other GI concerns. Internet Marketing Analyst Required: Yes Accompanied by: Self / Same As Patient Allergies No Known Allergies Allergy (Verified 08/25/24 09:04) HPI HPI pt req appointment: Details: Assessment & Plan (1) H. pylori infection: Code(s): A04.8 - Other specified bacterial intestinal infections Plan: [place]ari #[id number], aNTORO He says he received the abx and took them a month ago. He says he is feeling better. I explain that we need to retest to see if the bacteria is eradicated, and he is agreeable. He still will have some stomach discomfort if he skips a meal or eats late, but this has improved with the abx. He has not had any more black stools. He has also had no more diarrhea since he was treated for the H pylori. ROV after EGD/COLONOSCO0 (2) Diarrhea: Code(s): R19.7 - Diarrhea, unspecified (3) GERD (gastroesophageal reflux disease): Code(s): K21.9 - Gastro-esophageal reflux disease without esophagitis Orders: Orders H pylori Ag Stool Today A04.8 - Other specified bacterial intestinal infections LABS: Laboratory Tests 02/26/24 08:16 WBC 11.4 H Hgb 18.0 Hct 52.6 H Plt Count 251 Estimated GFR > 60 Total Bilirubin 0.7 Direct Bilirubin 0.3 AST 18 ALT 17 Alkaline Phosphatase 57 EGD/COLONOSCOPY BIOPSY TODAY'S VISIT Yazan Luis PATIENT HAS BEEN LOST TO FOLLOW-UP SINCE 10/2021 He says he does not know why he is here if you don't know, I don't know! But with discussion, he has been having pain in the upper chest just under the collar bone. This happens only if he is hungry and goes away with eating. He also will see RB on the TT the next day after his CP. His stooling is not hard but formed and normal and he denies CIC. He frequently forgets or only takes the omperazole when he has the pain, and ofcourse, this is not very effective. He is naive to anesthesia and sedation.. He denies any cardiac or respiratory problems. NO ID problems NO known FHX of crc or stomach cancer. He has a hx of HP but has not confirmed eradication. Get an H pylori test to confirm eradication and return office visit in 8 weeks. [facility] Medical History (Updated 08/25/24 @ 09:33 by SARIAH Griffiths) Melena Bloody stools Obese Type 2 diabetes mellitus, with long-term current use of insulin Dyslipidemia Essential hypertension Surgical History H/O excision of epidermal inclusion cyst (04/16/23) No pertinent past surgical history Family History Mother No problems noted. Father No problems noted. Social History Housing: Apartment Alcohol intake: never Patient Tobacco Use Status: Never used Tobacco e-Cigarette/Vaping Use: Never Used Second Hand Smoke Exposure: No service: No Current occupational status: disabled Review of Systems Const Denies fatigue, Denies fever(s), Denies night sweats, Denies poor appetite and Denies weight loss ENT Reports Normal hearing present, Denies dysphagia, Denies odynophagia, Denies throat swelling and Denies tongue swelling Card Reports chest pain and Reports chest pain at rest Resp Reports no additional complaints GI Details: Denies abdominal pain, Denies melena, Denies bloating, Denies hematochezia, Denies constipation, Denies GI cramping, Denies dysphagia, Denies excessive f latus, Denies early satiety, Reports heartburn, Denies diarrhea, Denies nausea, Denies odynophagia, Denies vomiting and Denies hematemesis Musc Details: Collarbone pain Skin/Breast Denies pruritus, Denies lesions, Denies rash and Denies jaundice Neuro Reports Normal hearing present and Denies Abnormal speech present Endo Denies fatigue Aller/Immun Denies throat swelling and Denies tongue swelling Physical Exam Vital Signs: Last Vital Signs Pulse 83 07/06/24 10:46 BP 132/76 07/06/24 10:46 BMI result Body Mass Index 33.3 Const General: cooperative, no acute distress, well developed and well groomed Nutritional Appearance: well nourished and obese Orientation/consciousness: oriented to person, oriented to place and oriented to time Limitations: language barrier HEENT Head: Yes normocephalic and Yes atraumatic Eyes General: appearance normal, both eyes and all related structures Pupils: Equal, round and reactive pupils present Neck Neck: Yes normal visual inspection and Yes no lymphadenopathy Thyroid: Thyroid normal Resp Effort & Inspection: normal respiratory effort and able to speak in complete sentences Auscultation: clear to auscultation bilaterally Cardio Rate: regular rate Rhythm: regular rhythm Heart sounds: Normal, physiologic split S2 sound present Peripheral pulses: radial pulses present and posterior tibial pulses present GI Inspection: No distended, No Abdominal panniculus present and Yes obesity Palpation (GI): Soft to palpation, nontender, no guarding, not rigid, No hepatosplenomegaly present and Hernia present (strange divet above umbilicus and rectus abdomin above) umbilical Percussion: Yes normal to percussion Auscultation: normal bowel sounds Rectal Exam - Male: Yes deferred Skin General skin exam: no rashes or lesions noted, turgor normal, skin not dry, no jaundice, No spider nevi and no striae Rashes: no rashes Nails: normal Neuro General: oriented to person, oriented to place and oriented to time Cranial nerves: Yes Equal, round and reactive pupils present and Yes Normal hearing present Speech: No Abnormal speech present Extrem General: Yes normal to inspection, No clubbing, No cyanosis and No edema Psych Appearance: grossly normal and well kempt Mental Status: mental status grossly normal Speech and movement: Normal speech and movement present Affect: normal affect Attitude: cooperative Thought process: Normal thought process present and not confabulating Thought content: Normal thought content present Insight: Limited insight present (Psych) Judgement: Limited judgement present (Psych) Assessment & Plan Assessment & Plan (1) GERD (gastroesophageal reflux disease): Code(s): K21.9 - Gastro-esophageal reflux disease without esophagitis Category: Medical (2) H. pylori infection: Code(s): A04.8 - Other specified bacterial intestinal infections Category: Medical (3) Chest pain: Code(s): R07.9 - Chest pain, unspecified Category: Medical Plan Yazan Luis PATIENT HAS BEEN LOST TO FOLLOW-UP SINCE 10/2021 He says he does not know why he is here if you don't know, I don't know! But with discussion, he has been having pain in the upper chest just under the collar bone. This happens only if he is hungry and goes away with eating. He also will see RB on the TT the next day after his CP. His stooling is not hard but formed and normal and he denies CIC. He frequently forgets or only takes the omperazole when he has the pain, and ofcourse, this is not very effective. He is naive to anesthesia and sedation.. He denies any cardiac or respiratory problems. NO ID problems NO known FHX of crc or stomach cancer. He has a hx of HP but has not confirmed eradication. Get an H pylori test to confirm eradication and return office visit in 8 weeks. Orders: Orders EGD/Register Combo - GI Use Only 07/06/24 K21.9 - Gastro-esophageal reflux disease without esophagitis, R07.9 - Chest pain, unspecified, A04.8 - Other specified bacterial intestinal infections H Pylori Breath Test 07/06/24 Medications: New famotidine (Pepcid) 20 mg PO BID 60 tabs 6RF K21.9 - Gastro-esophageal reflux disease without esophagitis Coding Level of Care Code Est Pt Level 4 (20204) Diagnoses GERD (gastroesophageal reflux disease) K21.9 H. pylori infection A04.8 Chest pain R07.9 Time Spent (min) 37
== END 2024-07-06 12:19 | disposition home or self-care (01) ==
PROVIDERS: PCP Internal Medicine Geriatric Medicine; Visit Provider Nurse Practitioner
DX: K21.9 Gastro-esophageal reflux disease without esophagitis (principal); A04.8 Other specified bacterial intestinal infections; R07.9 Chest pain, unspecified
CPT/HCPCS: 99214

== ENCOUNTER 2024-08-25 08:35 | Outpatient (AMB) | payer OTHER, SELFPAY ==
[2024-08-25 08:57] VITALS: BP 140/74; PULSE 72; BMI 33.9
--- NOTE | 2024-08-25 08:57 | A.OFFVIS_ITS ---
Vital Signs 08/25/24 08:57 Height 5 ft 7 in Weight 216 lb 7.903 oz BMI 33.9 BP 140/74 H Blood Pressure Location Lt brachial Position Sitting Pulse 72 Intake Visit Reasons: Follow up H pylori Intake Note: Eddie presents in follow up of H pylori. CC: Patient reports doing well and denies having any GI symptoms or concerns today. He states that he completed the medications sent to him but he is unsure if he still taking Omeprazole and/or famotidine. Lawn Mower Operator Required: Yes Accompanied by: Self / Same As Patient Allergies No Known Allergies Allergy (Verified 08/25/24 09:04) HPI HPI Follow up H pylori: Details: Yazan Luis PATIENT HAS BEEN LOST TO FOLLOW-UP SINCE 10/2021 He says he does not know why he is here if you don't know, I don't know! But with discussion, he has been having pain in the upper chest just under the collar bone. This happens only if he is hungry and goes away with eating. He also will see RB on the TT the next day after his CP. His stooling is not hard but formed and normal and he denies CIC. He frequently forgets or only takes the omperazole when he has the pain, and ofcourse, this is not very effective. He is naive to anesthesia and sedation. NO card or resp problems NO ID problems NO known FHX of crc or stomach cancer. He has a hx of HP but has not confirmed eradication. Assessment & Plan (1) GERD (gastroesophageal reflux disease): Code(s): K21.9 - Gastro-esophageal reflux disease without esophagitis Category: Medical (2) H. pylori infection: Code(s): A04.8 - Other specified bacterial intestinal infections Category: Medical (3) Chest pain: Code(s): R07.9 - Chest pain, unspecified Category: Medical Orders: Orders EGD/[place] Combo - GI Use Only Today A04.8 - Other specified bacterial intestinal infections, K21.9 - Gastro-esophageal reflux disease without esophagitis, R07.9 - Chest pain, unspecified H Pylori Breath Test Today Medications: New famotidine (Pepcid) 20 mg PO BID 60 tabs 6RF K21.9 - Gastro-esophageal reflux disease without esophagitis On Hold omeprazole Hold Comment: Doctor's Order 40 mg PO BID 30 days 60 caps 3RF K21.9 - Gastro-esophageal reflux disease without esophagitis, R10.13 - Epigastric pain LABS: EGD/COLONOSCOPY BIOPSY CORRESPONDENCE On 07/07/24 @ 11:14 Ginger Ojeda Wrote To Ginger Ojeda (2) PLEASE CALL the patient and advised him he has an H pylori infection which likely accounts for his symptoms. I am going to treat him with quadruple therapy please instruct him it is very important to complete the antibiotics because this is a difficult microbe to cure. I would also like him to take the omeprazole twice a day for at least 14 days because this helps to killed bacteria as well. Emphasize that he can have no alcohol or he will have a disulfiram reaction and vomit. Also advised him to take a probiotic supplement to offset any possible diarrhea or yeast infections from the strong antibiotics. Medication Orders bismuth subsalicylate 2 tabs PO QID 112 tabs 0RF 14 days New doxycycline hyclate 100 mg PO BID 28 tabs 0RF 14 days New metronidazole 1,000 mg (2 x 500 mg) PO BID 56 tabs 0RF 14 days New TODAY'S VISIT [place] [facility] [employer] He completed the quad therapy and is feeling better. He only gets epi pain when he is hungry and it will resolve quickly with eating. He thinks that he can remember the exact day in 1981 when the symptoms onset and he is feeling much better now that has been treated. We will need to do an H pylori breath test to confirm eradication. Has not been contacted yet for procedures. He continues to have rectal bleeding and it is only on the toilet tissue and not copious.. ROV 6 mos. [facility] Medical History (Updated 08/25/24 @ 09:33 by SARIAH Griffiths) Melena Bloody stools Obese Type 2 diabetes mellitus, with long-term current use of insulin Dyslipidemia Essential hypertension Surgical History H/O excision of epidermal inclusion cyst (04/16/23) No pertinent past surgical history Family History Mother No problems noted. Father No problems noted. Social History Housing: Apartment Alcohol intake: never Patient Tobacco Use Status: Never used Tobacco e-Cigarette/Vaping Use: Never Used Second Hand Smoke Exposure: No service: No Current occupational status: disabled Review of Systems Const Denies fatigue, Denies fever(s), Denies night sweats, Denies poor appetite and Denies weight loss ENT Reports Normal hearing present, Denies dental pain, Denies dysphagia, Denies hearing loss, Denies mouth pain, Denies odynophagia, Denies throat swelling, Denies tongue swelling and Reports other (Dentition adequate) Card Reports no additional complaints Resp Reports no additional complaints GI Details: Denies abdominal pain, Denies melena, Denies bloating, Reports hematochezia, Denies constipation, Denies GI cramping, Denies dysphagia, Denies excessive flatus, Denies early satiety, Reports heartburn, Denies diarrhea, Denies nausea, Denies odynophagia, Denies vomiting and Denies hematemesis Skin/Breast Denies pruritus, Denies lesions, Denies rash and Denies jaundice Neuro Reports Normal hearing present and Denies Abnormal speech present Endo Denies fatigue Aller/Immun Denies throat swelling and Denies tongue swelling Physical Exam Vital Signs: Last Vital Signs Pulse 72 08/25/24 08:57 BP 140/74 H 08/25/24 08:57 BMI result Body Mass Index 33.9 Const General: cooperative, no acute distress, well developed and well groomed Nutritional Appearance: well nourished and obese Orientation/consciousness: oriented to person, oriented to place and oriented to time Limitations: language barrier HEENT Head: Yes normocephalic and Yes atraumatic Eyes General: appearance normal, both eyes and all related structures Pupils: Equal, round and reactive pupils present Neck Neck: Yes normal visual inspection and Yes no lymphadenopathy Thyroid: Thyroid normal Resp Effort & Inspection: normal respiratory effort and able to speak in complete sentences Auscultation: clear to auscultation bilaterally Cardio Rate: regular rate Rhythm: regular rhythm Heart sounds: Normal, physiologic split S2 sound present Peripheral pulses: radial pulses present and posterior tibial pulses present GI Inspection: No distended, No Abdominal panniculus present and Yes obesity Palpation (GI): Soft to palpation, nontender, no guarding, not rigid and No hepatosplenomegaly present Percussion: Yes normal to percussion Auscultation: normal bowel sounds Rectal Exam - Male: Yes deferred Skin General skin exam: no rashes or lesions noted, turgor normal, skin not dry, no jaundice, No spider nevi and no striae Rashes: no rashes Nails: normal Neuro General: oriented to person, oriented to place and oriented to time Cranial nerves: Yes Equal, round and reactive pupils present and Yes Normal hearing present Speech: No Abnormal speech present Extrem General: Yes normal to inspection, No clubbing, No cyanosis and No edema Psych Appearance: grossly normal and well kempt Mental Status: mental status grossly normal Speech and movement: Normal speech and movement present Affect: normal affect Attitude: cooperative Thought process: Normal thought process present and not confabulating Thought content: Normal thought content present Insight: Limited insight present (Psych) Judgement: Limited judgement present (Psych) Assessment & Plan Assessment & Plan (1) H. pylori infection: Code(s): A04.8 - Other specified bacterial intestinal infections Category: Medical (2) GERD (gastroesophageal reflux disease): Code(s): K21.9 - Gastro-esophageal reflux disease without esophagitis Category: Medical (3) Epigastric pain: Code(s): R10.13 - Epigastric pain Category: Medical (4) Bloody stools: Code(s): K92.1 - Melena Category: Medical Plan [place] [employer] He completed the quad therapy and is feeling better. He only gets epi pain when he is hungry and it will resolve quickly with eating. He thinks that he can remember the exact day in 1981 when the symptoms onset and he is feeling much better now that has been treated. We will need to do an H pylori breath test to confirm eradication. Has not been contacted yet for procedures. He continues to have rectal bleeding and it is only on the toilet tissue and not copious.. ROV 6 mos. Orders: Orders H Pylori Breath Test Today Medications: Discontinued omeprazole Discontinued Reason: Doctor's Order 40 mg PO BID 30 days 60 caps 3RF K21.9 - Gastro-esophageal reflux disease without esophagitis, R10.13 - Epigastric pain famotidine (Pepcid) Discontinued Reason: Patient no longer taking 20 mg PO BID 60 tabs 6RF K21.9 - Gastro-esophageal reflux disease without esophagitis Coding Level of Care Code Est Pt Level 3 (96727) Diagnoses H. pylori infection A04.8 GERD (gastroesophageal reflux disease) K21.9 Epigastric pain R10.13 Bloody stools K92.1
== END 2024-08-25 09:45 | disposition home or self-care (01) ==
PROVIDERS: PCP Internal Medicine Geriatric Medicine; Visit Provider Nurse Practitioner
DX: A04.8 Other specified bacterial intestinal infections (principal); K21.9 Gastro-esophageal reflux disease without esophagitis; R10.13 Epigastric pain; K92.1 Melena
CPT/HCPCS: 99213

== ENCOUNTER 2024-08-25 08:35 | Outpatient (REF) | payer OTHER, SELFPAY ==
[2024-08-26 11:57] LABS: H Pylori Breath Test Negative (Negative)
== END 2024-08-25 08:36 | disposition home or self-care (01) ==
LOC: HO.LNP 08:35
PROVIDERS: PCP Internal Medicine Geriatric Medicine; Visit Provider Nurse Practitioner
DX: A04.8 Other specified bacterial intestinal infections (principal); K21.9 Gastro-esophageal reflux disease without esophagitis; R10.13 Epigastric pain; K92.1 Melena
CPT/HCPCS: 83013; 99212

== ENCOUNTER 2025-02-17 08:57 | Day surgery (SDC) | payer OTHER, SELFPAY ==
--- OUTSIDE RECORDS SUMMARY | 2025-02-14 18:07 | XMS_ITS | Clinical Summary ---
Author Organization [employer] Address [address] [facility] [address] [place] [address] Care Team Providers Care Welfare Project Manager Name Role Phone Name, Matthew ARRINGTON Primary Care Provider [phone] Yesika Michel PharmD Unavailable [phone] Allergies No known active allergies Medications Blood Pressure Monitor kitIndications:Hy pertension, unspecified type 1 kit in the morning. 1 kit 3 Active sildenafil (Viagra) 50 MG tabletIndications :Type 2 diabetes mellitus with hyperglycemia, without long-term current use of insulin ([facility]),Erectil e dysfunction due to diseases classified elsewhere TAKE 1 TABLET 1 HOUR BEFORE SEXUAL RELATIONS ONCE DAILY NEEDED. 10 tablet 3 Active pyridoxine (Vitamin B-6) 100 MG tablet 3 Active Continuous Blood Gluc Vp Product Management (FreeStyle Quan 2 [place]) device Use to scan sensor at least every 8 hours, as directed, for CGM 1 each 3 Active omeprazole (PriLOSEC) [address] capsuleIndication s:Epigastric pain Take 1 capsule (40 mg) by mouth Once per day. 90 capsule 3 4 Active atorvastatin (Lipitor) 10 MG tabletIndications :Type 2 diabetes mellitus with other specified complication, with long-term current use of insulin ([facility]),Hyperli pidemia due to type 2 diabetes mellitus (CMS/HCC) ([facility]) Take 1 tablet (10 mg) by mouth Once per day. 90 tablet 3 4 Active glucose 4 g chewable tabletIndications :Type 2 diabetes mellitus with other specified complication, with long-term current use of insulin ([facility]) Chew 4 tablets (16 g) if needed for low blood sugar. <70 mg/dL. Recheck blood sugar after 15 minutes and repeat treatment if needed. 20 tablet 5 4 05/05/20 25 Active insulin glargine (Lantus SoloStar) 100 UNIT/ML penIndications:Ty pe 2 diabetes mellitus with other specified complication, with long-term current use of insulin ([facility]) Inject 18 Units under the skin at bedtime. 45 mL 5 4 Active insulin pen needle (UltiCare Micro Pen Staples) 32G x 4 mm miscIndications:T ype 2 diabetes mellitus with other specified complication, with long-term current use of insulin ([facility]) Use as directed to inject insulin 1 times daily 100 each 3 4 Active losartan (Cozaar) 25 MG tabletIndications :Type 2 diabetes mellitus with other specified complication, with long-term current use of insulin ([facility]),Essenti al hypertension Take 1 tablet (25 mg) by mouth Once per day. 90 tablet 3 4 Active glucose blood (FreeStyle Precision Darrel Test) test stripIndications: Type 2 diabetes mellitus with hyperglycemia, with long-term current use of insulin ([facility]) Use to test blood sugar up to 2 times daily, as directed 50 each 5 4 Active Continuous Glucose Sensor (FreeStyle Quan 2 Sensor) miscIndications:T ype 2 diabetes mellitus with hyperglycemia, with long-term current use of insulin ([facility]) USE DIRECTED TO TEST BLOOD SUGAR. CHANGE EVERY 14 DAYS 6 each 3 4 Active TRUEplus Lancets 33G miscIndications:T ype 2 diabetes mellitus with hyperglycemia, with long-term current use of insulin ([facility]) Use to test blood sugar twice daily as directed 100 each 4 Active Blood Glucose Monitoring Suppl (FreeStyle Lite) deviceIndications :Type 2 diabetes mellitus with hyperglycemia, with long-term current use of insulin ([facility]) Inject 1 each under the skin 2 times daily. Use to test blood sugar as directed 1 each 4 Active FREESTYLE LITE test stripIndications: Type 2 diabetes mellitus with hyperglycemia, with long-term current use of insulin ([facility]) Use to test blood sugar 2 times daily 50 strip 5 4 Active Multiple Vitamins-Minerals (PreserVision AREDS 2) capsuleIndication s:Type 2 diabetes mellitus with other specified complication, with long-term current use of insulin ([facility]/HCC) TAKE 1 CAPSULE BY MOUTH TWICE DAILY WITH FOOD 60 capsule 11 5 Active Synjardy XR 5-1000 MG 24 hr tabletIndications :Type 2 diabetes mellitus with other specified complication, with long-term current use of insulin ([facility]) TAKE 2 TABLETS BY MOUTH EVERY DAY WITH BREAKFAST 180 tablet 1 5 Active Active Problems Problem Noted Date Diagnosed Date Dental plaque 03/08/2024 Localized gingival recession 03/08/2024 Bone loss 03/08/2024 Missing teeth, acquired 03/08/2024 Type 2 diabetes mellitus, wi th long-term current use of insulin 04/08/2023 Calculus of kidney 03/10/2023 Overview (04/08/2023): infected , inpatient at [facility] infected , inpatient at [facility] 03/20/[address] [facility] ED Assessment & Plan (04/08/2023 11:50 AM EDT): CT scan showed stone at Left UV junction, apparently came out spontaneously. Patient is currently asymptomatic, no need for addtl Flomax.. Refer to urology for fu due to recurrent kidney stone Obtain uric acid levels, specially given hx leukemoid reaction. Encouraged increased water intake. FU w PCP prn Hyperlipidemia due to type 2 diabetes mellitus ( CMS/HCC) 03/10/2023 Macular degeneration 03/10/2023 Microalbuminuria 03/10/2023 Occult blood in stools 03/10/2023 Assessment & Plan (04/14/2024 2:37 PM EDT): Pt seen by his PCP last month who referred him again to GI. Pt seems resistant to the idea. Epigastric pain 07/29/2022 Assessment & Plan (04/14/2024 2:58 PM EDT): Patient with c/o intermittent heartburn for many years. Not using Omeprazole. Pt does not drink or smoke. Denies any difficulty swallowing. Pt was referred to GI back in 07/2023 by his PCP pt did not schedule the appointment. The office of GI has been trying to contact him to no avail Plan: We tried contacting the office of the gastroenterology to give him an appointment. Unfortunately we were not successful. My MA will continue to try Pt needs an EGD and a Colonoscopy. Most recent CBC 02/26/2024 was within normal limits. Housing instability 07/29/2022 Personal history of COVID-19 07/29/2022 Rectal hemorrhage 07/29/2022 Essential hypertension 01/13/2018 Hyperlipidemia 01/11/2018 Type 2 diabetes mellitus wit hout complication, without long-term current use of insulin 01/11/2018 Resolved Problems Problem Noted Date Diagnosed Date Resolved Date Leukemoid reaction 04/08/2023 Assessment & Plan (04/08/2023 11:51 AM EDT): Repeat CBC with differential and LDH. SHARON ríos PCP Immunizations Immunization Administration Dates Next Due Hep B, adult 12/21/2023(Deferred: Patient Ref used) Influenza, IIV3, injectable 10/21/2018 Pfizer Covid-19 Vaccine 12+ 12/21/2023(D eferred: Patient Refused),05/17/2021,04/26/2021 Pneumococcal Conjugate PCV 13 07/12/2021, 019 Pneumococcal Conjugate PCV 20 12/21/2023(Deferre d: Patient Refused) RSV Bivalent 12/21/2023(Deferred: Patient Ref used) Tdap 03/25/2017 Social History Tobacco Use Types Packs/Day Years Used Date Smoking Tobacco: Never Smokeless Tobacco: Never Tobacco Cessation:Counseling Given: Not Answered Alcohol Use Standard Drinks/Week Comments Never 0 (1 standard drink = 0.6 oz pur e alcohol) Alcohol Answer Date Recorded Frequency of Alcohol Consumption Not on file 02/24/2024 Average Number of Drinks Not on file 024 Frequency of Binge Drinking Not on file 10/2023 Score 0 02/24/2024 Depression Answer Date Recorded Patient Health Questionnaire-9 Score 0 08/11/2023 Patient Health Questionnaire-9 Score 0 08/11/2023 Last PHQ-9: Questionnaire Data Not on file 1 10/12/2022 Housing Stability Answer Date Recorded What is your housing situation today? I have cheryle esposito 02/24/[address] you li ve. Do you have problems with any of the following? None of the above 02/24/2024 Food Insecurity Answer Date Recorded Within the past 12 months, y ou worried that your food would run out before you got money to buy more: Never True 02/24/2024 Within the past 12 months,th e food you bought just didn't last and you didn't have enough money to get more: Never True 10/2023 Transportation Answer Date Recorded In the past 12 months, has l ack of transportation kept you from medical appts, meetings, work or from getting things needed for daily living? No 02/24/2024 Utilities Answer Date Recorded In the past 12 months, has t he electric, gas, oil or water company threatened to shut off services in your home? I am not sure 05/31/2024 Depression Answer Date Recorded Patient Health Questionnaire-2 Score 0 08/11/2023 Internet Access Answer Date Recorded Internet Access Q1 Yes 05/31/2024 Internet Access Q2 I do not want or need it 03/2024 Sex and Gender Information Value Date Recorded Sex Assigned at Male 06/23/2022 10:39 AM EDT Legal Sex Male 10:39 AM EDT Gender Identity Male 06/23/2022 10:39 AM EDT Sexual Orientation Straight 06/23/2022 10 :39 AM EDT Last Filed Vital Signs Vital Sign Reading Time Taken Comments Blood Pressure 136/78 09/13/2024 9:09 AM EST Pulse 80 05/31/2024 10:57 AM EDT Temperature 36.7 C (98.1 F) 05/31/2024 10:57 AM EDT Respiratory Rate 20 05/31/2024 10:57 AM EDT Oxygen Saturation 97% 05/31/2024 10:57 AM EDT Inhaled Oxygen Concentration - - Weight 95.9 kg (211 lb 6.4 oz) 05/31/2024 10:57 AM EDT Height 175.3 cm (5' 9 ) 05/31/2024 10:57 AM EDT Body Mass Index 31.22 05/31/2024 10:57 AM EDT Plan of Treatment Upcoming Encounters Date Type Department Care Team (Late st Contact Info) Description 03/15/2025 1:00 PM EDT Office Visit [facility] ADULT DENTAL [address] [place] [address] Escobar, Silvia [address] [place] [address] 04/26/2025 11:00 AM EDT Office Visit [facility] OPTOMETRY [address] [place] [address] Kyle, Kirstin, OD [address] [place] [address] Health Maintenance Due Date Last Done Comments CT Colonography 1952 Colonoscopy 1952 Colorectal Cancer Screening 1952 FIT DNA/Cologuard 1952 FIT 1952 FOBT 1952 Sigmoidoscopy 1952 Hepatitis C Screening 1970 Zoster Vaccines (1 of 2) 2002 RSV Patients and Patients Aged 60 years or older (1 - Risk 60-74 years 1-dose series) 2012 Pneumococcal Vaccine: 50+ Years (2 of 2 - PPSV23) 09/06/2021 07/12/2021, 10/21/2018 COVID-19 Vaccine ( season) 2024 05/17/2021, 04/26/2021 Diabetes: Hemoglobin A1C 08/04/20242 024, 02/02/2024, 10/21/2023, Additional history exists Depression Screening 08/11/2024 08/11/2023, 08/11/20 23 Dental Oral Exam 09/09/2024 03/08/2024 Alcohol/Substance Use Screening 02/23/2025 02/24/2024 Diabetes: Foot Exam 02/23/2025 02/24/2024, 02/24/2024, 02/24/2024, Additional history exists Diabetes: Urine Protein Screening 02/25/2025 02/26/2024, 11/11/2022, 12/19/2021, Additional history exists Lipid Panel 02/25/2025 02/26/2024, 03/2 08/2022, 12/19/2021, Additional history exists Dental X-Ray: Bitewings 03/09/2025 03/08/2024 Dental Prophylaxis 03/14/2025 09/13/2024, 03/08/2024 Influenza Vaccine (Season Ended) 2025 10/21/2018 SDOH Screening 05/31/2025 05/31/2024 Tobacco Screening 11/10/2025 11/10/2024 Eye Exam 10/24/2026 10/24/2024, 03/0 10/2024, 10/24/2024, Additional history exists Dental X-Ray: Full Mouth 03/09/2027 03/08/2024 DTaP/Tdap/Td Vaccines (2 - Td or Tdap) 03/25/2027 03/25/2017 HIB Vaccines Aged Out No longer eligi ble based on patient's age to complete this topic HPV Vaccines Aged Out No longer eligi ble based on patient's age to complete this topic Hepatitis A Vaccines Aged Out No long er eligible based on patient's age to complete this topic Hepatitis B Vaccines Aged Out No long er eligible based on patient's age to complete this topic IPV Vaccines Aged Out No longer eligi ble based on patient's age to complete this topic Meningococcal B Vaccine Aged Out No l onger eligible based on patient's age to complete this topic Meningococcal Vaccine Aged Out No av derrick eligible based on patient's age to complete this topic RSV under 20 months Aged Out No longe r eligible based on patient's age to complete this topic Rotavirus Vaccines Aged Out No longer eligible based on patient's age to complete this topic Goals Goal Patient Goal Type Associated Problems Recent Progress Patient-Stated? Author Record your blood pressure periodically; bring log to all appointments Blood Pressure No Puia, Yesika, PharmD Blood Pressure < 140/90 Blood Pressure 136/78(2024 9:09 AM EST) No Puia, Yesika, PharmD Record your blood sugar as directed Result Component No Puia, Yesika, PharmD Hemoglobin A1c < 7.5 Result Component 7.2( 10:20 AM EDT) No Puia, Yesika, PharmD Procedures Procedure Name Priority Date/Time Associated Diagnosis Comments PROPHYLAXIS - ADULT Routine 09/13/2024 9 :00 AM EST Dental plaque POCT GLYCATED HEMOGLOBIN, TOTAL Routine 05/05/2024 10:20 AM EDT Type 2 diabetes mellitus with other specified complication, with long-term current use of insulin ([facility]) INTRAORAL - COMPLETE SERIES OF RADIOGRAPHIC IMAGES Routine 03/08/2024 9:30 AM EDT COMPREHENSIVE ORAL EVALUATION - NEW OR ESTABLISHED PATIENT Routine 03/08/2024 9:30 AM EDT ALBUMIN, RANDOM URINE W/CREATININE Routine 02/26/2024 8:16 AM EDT Type 2 diabetes mellitus with other specified complication, with long-term current use of insulin ([facility]) Essential hypertension Occult blood in stools LIPID PANEL, STANDARD Routine 02/26/2024 8:16 AM EDT from Last 3 Months or Most Recently Relevant to Health Maintenance Results * (ABNORMAL) POCT HGB A1C (05/05/2024 10:20 AM EDT) Hemoglobin A1C 7.2(A) 4.0 - 6.0 % QC Media Lot # [id number] Lot# Expiration Date Blood 05/05/2024 10:2 0 AM EDT us Matthew Name POINT OF CARE TEST ENTER/EDIT OR DERABLES Final Result * Albumin, Random Urine W/Creatinine (02/26/2024 8:16 AM EDT) Creatinine, Urine 91.91 mg/dL [facility] Microalbumin Urine 7.0 mg/L [facility] Microalbum Creatinine Ratio Ur 7.6 <30 ug/mg cr [facility] Comment:Albumin/Creatinine R atio Reference Ranges: Normal: < 30 ug/mg creatinine Microalbuminuria: 30 - 300 ug/mg creatinineClinical Albuminuria: > 300 ug/mg creatinine Urine (Urine, Random) 02/26/2024 8:16 AM EDT 02/26/2024 11:21 AM EDT us Matthew Name LAB URINE ORDERABLES Final Resul t Performing Organization Address [facility] Co de Phone Number [facility] [address] [place] [phone] * (ABNORMAL) Lipid Panel, Standard (02/26/2024 8:16 AM EDT) Triglycerides 213(H) <150 mg/dL [facility] Comment:Desirable Triglyceri de: less than 150 mg/dLBorderline High Triglyceride 150-199 mg/dLHigh Triglyceride: 200-499 mg/dLVery High Triglyceride: greater than or equal to 5OO mg/dL Cholesterol 144 <200 mg/dL [facility] Comment:Desirable Cholestero l: less than 200 mg/dLBorderline High Cholesterol: 200-239 mg/dLHigh Cholesterol: greater than 239 mg/dL LDL Cholesterol Calculated 65 <100 mg/dL [facility] Comment:Desirable LDL: less than 100 mg/dLNear Optimal/Above Optimal LDL: 110- 129 mg/dLBorderline High LDL: 130-159 mg/dLHigh LDL: 160-189 mg/dLVery High LDL: greater than or equal to 190 mg/dL HDL Cholesterol 37(L) >40 mg/dL [facility] Comment:Desirable HDL: great er than 40 mg/dL Note: This HDL assay may give artificially low results in patients with liver disease. 02/26/2024 8:16 AM EDT 02/26/2024 11:07 AM EDT us Matthew Sevilla MD LAB BLOOD ORDERABLES Final Resul t Performing Organization Address [facility] Co de Phone Number [facility] [address] [place] [phone] from Last 3 Months or Most Recently Relevant to Health Maintenance Insurance [facility] LONG TERM OPT[employer] (HMO D-SNP) #[id number] JOANN nance [id number] [facility] * Guarantor: Eddie Mike Account Type Relation to Patient Date of Phone Billing Address Personal/Family Self 40 JO[address] Ferrer13 Care Teams Welfare Project Manager Relationship Specialty Start Date End Date Name, MD Matthew [address] [place] [address] JOANN Nance [phone] PCP - General Family Medicine 06/20/21 Yesika Michel, HerbertD [address] [place] [phone] Pharmacist Internal Medicine 06/22/23
--- NOTE | 2025-02-16 11:58 | HO.ANESPROP2 ---
Documented by User: Shaina Yoon NP 02/16/25 11:59 HPI - Anesthesia Eval Consult details Narrative: 74yo M for Upper Endoscopy and Colonoscopy Anesthesia Pre-Procedure Meds Is the patient on any of the following meds?: GLP1/DPP4 PMFSH Active Problems Active Problems: All Active Problems Chest pain (Acute) Urinary frequency (Acute) Nephrolithiasis (Acute) Renal cyst (Acute) Sebaceous cyst (Acute) H. pylori infection (Acute) GERD (gastroesophageal reflux disease) (Acute) Diarrhea (Acute) Epigastric pain (Acute) Bloody stools (Acute) Obese (Acute) Type 2 diabetes mellitus, with long-term current use of insulin (Acute) Dyslipidemia (Acute) Essential hypertension (Acute) Past Medical History Medical History (Updated 02/17/25 @ 11:23 by Carin Vanegas RN) Kidney stones Melena Bloody stools Obese Type 2 diabetes mellitus, with long-term current use of insulin Dyslipidemia Essential hypertension Family History Family History Mother No problems noted. Father No problems noted. Surgical History Surgical History (Updated 02/17/25 @ 11:23 by Carin Vanegas RN) H/O excision of epidermal inclusion cyst (04/16/23) Social History Social History Housing: Apartment Alcohol intake: never Patient Tobacco Use Status: Never used Tobacco e-Cigarette/Vaping Use: Never Used Second Hand Smoke Exposure: No Use of substances other than those prescribed or required for medical reasons: No Are you DNR?: No Advance Directives: No Advance Directives Information Provided: Yes Poor oral hygiene: No service: No Current occupational status: disabled Meds Allergies Allergy/AdvReac Type Severity Reaction Status Date / Time No Known Allergies Allergy Verified 08/25/24 09:04 Home Medications ?Medication ?Instructions ?Recorded ?Confirmed ?Last Taken ?Type blood sugar diagnostic #10 ea 03/18/21 03/24/23 Unknown History pen needle, diabetic 31 gauge x #1,200 ea 03/18/21 03/24/23 Unknown History 5/16 empagliflozin 5 mg-metformin ER 1 tab PO BID 07/06/24 02/14/25 History 1,000 mg tablet,extended release 24 hr (Synjardy XR) insulin glargine 100 unit/mL (3 20 unit subcut BEDTIME 07/06/24 Unknown History mL) subcutaneous pen losartan 25 mg tablet 25 mg PO DAILY 07/06/24 Unknown History Assessment and Plan Assessment Anesthesia Assessment: Chart Reviewed Documented by User: Corinne Simpson MD 02/17/25 11:44 [facility] Past Medical History Medical History (Updated 02/17/25 @ 11:23 by Carin Vanegas, RN) Kidney stones Melena Bloody stools Obese Type 2 diabetes mellitus, with long-term current use of insulin Dyslipidemia Essential hypertension Family History Family History Mother No problems noted. Father No problems noted. Family history of problems with anesthesia: No Surgical History Surgical History (Updated 02/17/25 @ 11:23 by Carin Vanegas RN) H/O excision of epidermal inclusion cyst (04/16/23) History of Problems with Anesthesia: No Social History Social History Housing: Apartment Alcohol intake: never Patient Tobacco Use Status: Never used Tobacco e-Cigarette/Vaping Use: Never Used Second Hand Smoke Exposure: No Use of substances other than those prescribed or required for medical reasons: No Are you DNR?: No Advance Directives: No Advance Directives Information Provided: Yes Poor oral hygiene: No service: No Current occupational status: disabled Meds Allergies Allergy/AdvReac Type Severity Reaction Status Date / Time No Known Allergies Allergy Verified 08/25/24 09:04 Home Medications ?Medication ?Instructions ?Recorded ?Confirmed ?Last Taken ?Type blood sugar diagnostic #10 ea 03/18/21 03/24/23 Unknown History pen needle, diabetic 31 gauge x #1,200 03/18/21 03/24/23 Unknown History 01/06 empagliflozin 5 mg-metformin ER 1 tab PO BID 07/06/24 02/14/25 History 1,000 mg tablet,extended release 24 hr (Synjardy XR) insulin glargine 100 unit/mL (3 20 unit subcut BEDTIME 07/06/24 Unknown History mL) subcutaneous pen losartan 25 mg tablet 25 mg PO DAILY 07/06/24 Unknown History Exam Airway Mallampati Class: II TM Dist: >3cm Neck ROM: Full Heart: rrr Lungs: cta Assessment and Plan Assessment Anesthesia Assessment: Anesthesia Plan Discussed Final Anesthetic Review Family History of Problems with Anesthesia: No History of Problems with Anesthesia: No NPO: Yes ASA Class: III Final Preanesthetic Review: No Changes in Pt Med Stat, Meds/Allgs Chart Reviewed and Consent Obtained/Reviewed Patient Risk: Intermediate Procedure Risk: Intermediate Anesthetic Plan Anesthetic Plan: MAC: Disposition: Standard PACU
--- NOTE | 2025-02-17 11:38 | MHC.SHP ---
Pre-Procedural Eval Section A - 24 Hr Update-Section A only Date of Service: 02/17/25 Section B - Complete if H&P > 30 days Chief Complaint: abdominal pain and screening Relevant Family History (Specify if Yes): No Relevant Social History: None Present Medications: see Short Stay Collaborative assessment Medical History: Significant History (Melena Bloody stools Obese Type 2 diabetes mellitus, with long-term current use of insulin Dyslipidemia Essential hypertension) History of Previous Operations: Relevant previous surgery/procedure and date(s) (H/O excision of epidermal inclusion cyst (04/16/23)) Allergies: Allergies Allergy/AdvReac Type Severity Reaction Status Date / Time No Known Allergies Allergy Verified 08/25/24 09:04 Review of Systems Sugical H&P ROS: Negative: Constitution, Cardiovascular, Respiratory, Neurological, Psychiatric, Hem-Onc, Allergic/Immunologic, Gastrointestinal, Genitourinary, Musculoskeletal, Integumentary, Endocrine and Eyes/Ears/Nose/Throat Exam Surgical H&P Exam: Normal: HEENT, Normal: Heart, Normal: Lungs, Normal: Extremities, Normal: Abdomen, Normal: Skin and Normal: Neurological Plan Diagnosis/Plan: Unchanged I have reviewed the history and physical and performed a pertinent physical examination on my patient. No changes have occurred unless specified. Time Spent With Patient Time: Total time managing care of this patient today ____ minutes.
[2025-02-17 11:46] VITALS: BP 155/83; PULSE 76; RESP 16; TEMP 36.3; O2SAT 97
[2025-02-17 11:53] LABS: Glucose, Whole Blood 137 mg/dL (60-115)
[2025-02-17] MEDS: Lactated Ringers 1,000 ML 100 ML IVCONT (11:56)
--- NOTE | 2025-02-17 12:11 | P.CONAN_ITS ---
FORM[facility]LY [facility] Active Problems Active Problems: All Active Problems (Updated 02/17/25 @ 11:23 by Carin Vanegas RN) Chest pain (Acute) Urinary frequency (Acute) Nephrolithiasis (Acute) Renal cyst (Acute) Sebaceous cyst (Acute) H. pylori infection (Acute) GERD (gastroesophageal reflux disease) (Acute) Diarrhea (Acute) Epigastric pain (Acute) Bloody stools (Acute) Obese (Acute) Type 2 diabetes mellitus, with long-term current use of insulin (Acute) Dyslipidemia (Acute) Essential hypertension (Acute) Past Medical History Medical History (Updated 02/17/25 @ 11:23 by Carin Vanegas RN) Kidney stones Melena Bloody stools Obese Type 2 diabetes mellitus, with long-term current use of insulin Dyslipidemia Essential hypertension Family History Family History Mother No problems noted. Father No problems noted. Family history of problems with anesthesia: No Surgical History Surgical History (Updated 02/17/25 @ 11:23 by Carin Vanegas RN) H/O excision of epidermal inclusion cyst (04/16/23) History of Problems with Anesthesia: No Social History Social History Housing: Apartment Alcohol intake: never Patient Tobacco Use Status: Never used Tobacco e-Cigarette/Vaping Use: Never Used Second Hand Smoke Exposure: No Use of substances other than those prescribed or required for medical reasons: No Are you DNR?: No Advance Directives: No Advance Directives Information Provided: Yes Poor oral hygiene: No service: No Current occupational status: disabled Meds Allergies Allergy/AdvReac Type Severity Reaction Status Date / Time No Known Allergies Allergy Verified 08/25/24 09:04 Active Medications: Current Medications Lactated Ringer's (Lr) 1,000 mls @ 100 mls/hr IVCONT .Q10H KIMI Last Admin: 02/17/25 11:56 Dose: 100 mls/hr Naloxone HCl (Naloxone Hcl 0.4 Mg/Ml Vial) 0.04 mg IVPUSH Q5M PRN PRN Reason: Excessive sedation or RR < 8 Home Medications ?Medication ?Instructions ?Recorded ?Confirmed ?Last Taken ?Type blood sugar diagnostic #10 ea 03/18/21 03/24/23 Unk nown History pen needle, diabetic 31 gauge x #1,200 ea 03/18/2109/15 Unknown History 01/06 empagliflozin 5 mg-metformin ER 1 tab PO BID 07/06/24 02/14/25 History 1,000 mg tablet,extended release 24 hr (Synjardy XR) insulin glargine 100 unit/mL (3 20 unit subcut BEDTIME 07/06/24 Unknown History mL) subcutaneous pen losartan 25 mg tablet 25 mg PO DAILY 07/06/24 Unk nown History Exam Height,Weight and Vital Signs: Height 5 ft 7 in Weight 94.2 kg Last Vital Signs Temp 97.4 F 02/17/25 11:46 Pulse 76 02/17/25 11:46 Resp 16 02/17/25 11:46 BP 155/83 H 02/17/25 11:46 Pulse Ox 97 02/17/25 11:46 O2 Del Method Room Air 02/17/25 11:46 Pertinent Lab Results Pertinent Lab Results: Laboratory Tests 02/17/25 11:49 POC Glucose 137 H Airway Mallampati Class: III TM Dist: >3cm Neck ROM: Full Assessment and Plan Final Anesthetic Review Family History of Problems with Anesthesia: No History of Problems with Anesthesia: No
--- NOTE | 2025-02-17 12:36 | P.OPN-COLO_ITS ---
Colonoscopy Operative Note Operative Note Date of Service: 02/17/25 Narrative: Operative Information Procedure Description: EGD, Colonoscopy Indication: gastritis and colo screening Anesthesia: MAC FLEXIBLE TRANSORAL UPPER GASTROINTESTINAL ENDOSCOPY AND COLONOSCOPY PROCEDURE NOTE UPPER ENDOSCOPY Consent: Indications for the procedure and potential complications of bleeding, perforation, reaction to medications and missed diagnosis were discussed with the patient and informed consent was obtained. Instrument: Olympus GIF H 190 J mid size upper endoscope Monitoring: Vital signs and clinical assessment, continuous EKG monitoring, Pulse oximetry, Carbon Dioxide monitoring and blood pressure monitoring were done throughout the procedure. Procedure: The patient was placed in the left lateral decubitis position and pre-procedure medications were administered and a bite block was placed. The endoscope was inserted into the mouth and advanced under direct vision to the third part of duodenum. A careful inspection was made as the upper endoscope was withdrawn including a retroflexed examination of the proximal stomach; Findings and interventions are described below. Findings: Larynx:normal Esophagus: GE junction at 38 cm, diaphragm hiatus at 38 cm, irregular z line with mild esophagitis, bx taken Stomach: few erosions and erythema. Biopsies were obtained. Grade 2 flap valve on retroflexed examination of the cardia. Duodenum: mild bulbar duodenitis Intervention: Biopsies as noted above, COLONOSCOPY Instrument: Olympus variable stiffness pediatric scope 190L Colonoscopy Monitoring: Vital signs and clinical assessment, continuous EKG monitoring, Pulse oximetry, Carbon Dioxide monitoring and blood pressure monitoring were done throughout the procedure. Colon withdrawal time was 30 minutes. Procedure: The patient was placed in the left lateral decubitis position and pre-procedure medications were administered. After a digital rectal examination of the ano-rectum, the video colonoscope was inserted into the rectum and advanced through the colon to the cecum/TI. The colonoscope was slowly withdrawn in a retrograde panoramic fashion and the colon mucosa was carefully examined including a retroflexed view of the rectum. Findings and interventions are described below. Procedure Difficulty:moderate Findings: Terminal Ileum-normal Cecum:normal Ascending Colon: x 4 pedunculated polyps 10-14 mm, removed with cold snare and clips applied x4 to the stalks, retrieved with net., moderate severe diverticulosis Transverse Colon - x 2 semi pedunculated polyps 10 mm removed with cold snare Descending Colon: x 1 pedunculated polyp 14 mm removed with hot snare after epinpehrine injection then one clip to stalk, x 2 sessile polyps removed with cold snare Sigmoid Colon: severe diverticulosis Rectum: Retroflexion with small internal hemorrhoids, grade I Anorectum - normal Colon preparation: [place] Bowel Preparation Scale Right colon; 2 Transverse colon: 2 Left colon; 1 (0 = Unprepared colon segment with mucosa not seen due to solid stool that cannot be cleared. 1 = Portion of mucosa of the colon segment seen, but other areas of the colon segment not well seen due to staining, residual stool and/or opaque liquid. 2 = Minor amount of residual staining, small fragments of stool and/or opaque liquid, but mucosa of colon segment seen well. 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
[2025-02-17 13:26] VITALS: BP 157/91; PULSE 81; RESP 16; TEMP 36.1; O2SAT 97
[2025-02-17 13:41] VITALS: BP 158/89; PULSE 70; RESP 16; TEMP 36.2; O2SAT 100
[2025-02-17 13:52] VITALS: BP 156/96; PULSE 69; RESP 16; TEMP 36.2; O2SAT 99
== END 2025-02-17 15:16 | disposition home or self-care (01) ==
PROVIDERS: Visit Provider Internal Medicine Gastroenterology
PROC: (CPT 45385; principal; 2025-02-17 12:10)
DX: Z12.11 Encounter for screening for malignant neoplasm of colon (principal); D12.0 Benign neoplasm of cecum; D12.2 Benign neoplasm of ascending colon; D12.3 Benign neoplasm of transverse colon; D12.4 Benign neoplasm of descending colon; K64.0 First degree hemorrhoids; K57.30 Diverticulosis of large intestine without perforation or abscess without bleeding; K21.9 Gastro-esophageal reflux disease without esophagitis; K22.70 Barrett's esophagus without dysplasia; K20.80 Other esophagitis without bleeding; K29.60 Other gastritis without bleeding; K29.80 Duodenitis without bleeding; K22.9 Disease of esophagus, unspecified; E11.9 Type 2 diabetes mellitus without complications; I10 Essential (primary) hypertension; E78.5 Hyperlipidemia, unspecified; Z79.4 Long term (current) use of insulin; Z79.899 Other long term (current) drug therapy; Z79.02 Long term (current) use of antithrombotics/antiplatelets
CPT/HCPCS: 45385; 45381; 43239; 82947; 88305; 88313; 88342; J0171; J2003; J2704

== ENCOUNTER → 2025-02-17 08:57 | Outpatient (BNV) | payer OTHER, SELFPAY | PROVIDERS: Visit Provider Internal Medicine Gastroenterology | DX: Z12.11 Encounter for screening for malignant neoplasm of colon (principal); D12.2 Benign neoplasm of ascending colon; D12.3 Benign neoplasm of transverse colon; D12.4 Benign neoplasm of descending colon; K57.90 Diverticulosis of intestine, part unspecified, without perforation or abscess without bleeding; K64.0 First degree hemorrhoids; K20.90 Esophagitis, unspecified without bleeding; K29.70 Gastritis, unspecified, without bleeding; K29.80 Duodenitis without bleeding | CPT/HCPCS: 43239; 45381; 45385 ==

== ENCOUNTER 2025-03-03 08:44 | Outpatient (AMB) | payer OTHER, SELFPAY ==
--- OUTSIDE RECORDS SUMMARY | 2025-03-03 08:52 | XMS_ITS | Clinical Summary ---
Author Organization [employer] Address [address] [place] [address] Care Team Providers Care Therapy Teacher Name Role Phone Name, Matthew ARRINGTON Primary Care Provider [phone] Yesika Michel PharmD Unavailable [phone] Allergies No known active allergies Medications Blood Pressure Monitor kitIndications:Hy pertension, unspecified type 1 kit in the morning. 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 10 tablet 3 Active pyridoxine (Vitamin B-6) 100 MG tablet 3 Active Continuous Blood Gluc Web Weaver (FreeStyle Quan 2 [place]) device Use to scan sensor at least every 8 hours, as directed, for CGM 1 each 3 Active omeprazole (PriLOSEC) [address] capsuleIndication s:Epigastric pain Take 1 capsule (40 mg) by mouth Once per day. 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 90 tablet 3 4 Active glucose 4 g chewable tabletIndications :Type 2 diabetes mellitus with other specified complication, with long-term current use of insulin ([facility]) Chew 4 tablets (16 g) if needed for low blood sugar. <70 mg/dL. Recheck blood sugar after 15 minutes and repeat treatment if needed. 20 tablet 5 4 05/05/20 25 Active insulin glargine (Lantus SoloStar) 100 UNIT/ML penIndications:Ty pe 2 diabetes mellitus with other specified complication, with long-term current use of insulin ([facility]) Inject 18 Units under the skin at bedtime. 45 mL 5 4 Active insulin pen needle (UltiCare Micro Pen [place]) 32G x 4 mm miscIndications:T ype 2 diabetes mellitus with other specified complication, with long-term current use of insulin ([facility]) Use as directed to inject insulin 1 times daily 100 each 3 4 Active losartan (Cozaar) 25 MG tabletIndications :Type 2 diabetes mellitus with other specified complication, with long-term current use of insulin ([facility]),Essenti al hypertension Take 1 tablet (25 mg) by mouth Once per day. 90 tablet 3 4 Active glucose blood (FreeStyle Precision Darrel Test) test stripIndications: Type 2 diabetes mellitus with hyperglycemia, with long-term current use of insulin ([facility]) Use to test blood sugar up to 2 times daily, as directed 50 each 5 4 Active Continuous Glucose Sensor (FreeStyle Quan 2 Sensor) miscIndications:T ype 2 diabetes mellitus with hyperglycemia, with long-term current use of insulin ([facility]) USE DIRECTED TO TEST BLOOD SUGAR. CHANGE EVERY 14 DAYS 6 each 3 4 Active TRUEplus Lancets 33G miscIndications:T ype 2 diabetes mellitus with hyperglycemia, with long-term current use of insulin ([facility]) Use to test blood sugar twice daily as directed 100 each 4 Active Blood Glucose Monitoring Suppl (FreeStyle Lite) deviceIndications :Type 2 diabetes mellitus with hyperglycemia, with long-term current use of insulin ([facility]) Inject 1 each under the skin 2 times daily. Use to test blood sugar as directed 1 each 4 Active FREESTYLE LITE test stripIndications: Type 2 diabetes mellitus with hyperglycemia, with long-term current use of insulin ([facility]) Use to test blood sugar 2 times daily 50 strip 5 4 Active Multiple Vitamins-Minerals (PreserVision AREDS 2) capsuleIndication s:Type 2 diabetes mellitus with other specified complication, with long-term current use of insulin ([facility]/HCC) TAKE 1 CAPSULE BY MOUTH TWICE DAILY WITH FOOD 60 capsule 11 5 Active Synjardy XR 5-1000 MG 24 hr tabletIndications :Type 2 diabetes mellitus with other specified complication, with long-term current use of insulin ([facility]) TAKE 2 TABLETS BY MOUTH EVERY DAY WITH BREAKFAST 180 tablet 1 5 Active Active Problems Problem Noted Date Diagnosed Date Dental plaque 03/08/2024 Localized gingival recession 03/08/2024 Bone loss 03/08/2024 Missing teeth, acquired 03/08/2024 Type 2 diabetes mellitus, wi th long-term current use of insulin 04/08/2023 Calculus of kidney 03/10/2023 Overview (04/08/2023): infected , inpatient at [facility] infected , inpatient at [facility] 03/20/23 Left UV junction at [facility] ED Assessment & Plan (04/08/2023 11:50 AM [...] Answer Date Recorded Internet Access Q1 Yes 02/26/2025 Internet Access Q2 Not on file 02/26/2025 Sex and Gender Information Value Date Recorded [...] Description 03/15/2025 1:00 PM EDT Office Visit [facility] [address] [place] [address] Escboar, Silvia [address] [place] [address] 04/26/2025 11:00 AM EDT Office Visit [facility] [address] [place] [address] Kyle, Kirstin, OD [address] [place] [address] Health Maintenance Due Date Last Done Comments CT Colonography 1952 FIT DNA/Cologuard 1952 FIT 1952 FOBT 1950 Sigmoidoscopy 1952 Alcohol/Substance Use Screening 1964 Hepatitis C Screening 1970 Zoster Vaccines (1 of 2) 2002 RSV Patients and Patients Aged 60 years or older (1 - Risk 60-74 years 1-dose series) 2012 Pneumococcal Vaccine: 50+ Years (2 of 2 - PPSV23) 09/06/2021 07/12/2021, 10/21/2018 COVID-19 Vaccine ( season) 2024 05/17/2021, 04/26/2021 Diabetes: Hemoglobin A1C 08/04/2024 024, 02/02/2024, 10/21/2023, Additional history exists Depression Screening 08/11/2024 08/11/2023, 08/11/20 23 Dental Oral Exam 09/09/2024 03/08/2024 Diabetes: Foot Exam 02/23/2025 02/24/2024, 02/24/2024, 02/24/2024, Additional history exists Diabetes: Urine Protein Screening 02/25/2025 02/26/2024, 11/11/2022, 12/19/2021, Additional history exists Lipid Panel 02/25/2025 02/26/2024, 10/23, 12/19/2021, Additional history exists Dental X-Ray: Bitewings 03/09/2025 03/08/2024 Dental Prophylaxis 03/14/2025 09/13/2024, 03/08/2024 Influenza Vaccine (#1) 2025 10/21/2018 SDOH Screening 05/31/2025 05/31/2024 Colonoscopy 08/19/2025 02/17/2025 Colorectal Cancer Screening 08/19/2025 Tobacco Screening 11/10/2025 11/10/2024 Eye Exam 10/24/2026 [...] Procedure Name Priority Date/Time Associated Diagnosis Comments HM COLONOSCOPY Routine 02/17/2025 PROPHYLAXIS - ADULT Routine 09/13/2024 9 :00 AM EST Dental plaque POCT GLYCATED HEMOGLOBIN, TOTAL Routine 05/05/2024 10:20 AM EDT Type 2 diabetes mellitus with other specified complication, with long-term current use of insulin ([facility]) INTRAORAL - COMPLETE SERIES OF RADIOGRAPHIC IMAGES Routine 03/08/2024 9:30 AM EDT COMPREHENSIVE ORAL EVALUATION - NEW OR ESTABLISHED PATIENT Routine 03/08/2024 9:30 AM EDT ALBUMIN, RANDOM URINE W/CREATININE Routine 02/26/2024 8:16 AM EDT Type 2 diabetes mellitus with other specified complication, with long-term current use of insulin ([facility]) Essential hypertension Occult blood in stools LIPID PANEL, STANDARD Routine 02/26/2024 8:16 AM EDT from Last 3 Months or Most Recently Relevant to Health Maintenance Results * Hm Colonoscopy (02/17/2025) Colonoscopy Normal Normal Narrative Anabelle Ramos - 02/17/2025 Repeat colonoscopy in 6 months due to poor prep Historical Provider HEALTH MAINTENANCE Final Result * (ABNORMAL) POCT HGB A1C (05/05/2024 10:20 AM EDT) Hemoglobin A1C 7.2(A) 4.0 - 6.0 % QC Media Lot # [id number] Lot# Expiration Date Blood 05/05/2024 10:2 0 AM EDT us Amtthew Name POINT OF CARE TEST ENTER/EDIT OR DERABLES Final Result * Albumin, Random Urine W/Creatinine (02/26/2024 8:16 AM EDT) Creatinine, Urine 91.91 mg/dL [facility] Microalbumin Urine 7.0 mg/L [facility] Microalbum Creatinine Ratio Ur 7.6 <30 ug/mg cr [facility] Comment:Albumin/Creatinine R atio Reference Ranges: Normal: < 30 ug/mg creatinine Microalbuminuria: 30 - 300 ug/mg creatinineClinical Albuminuria: > 300 ug/mg creatinine Urine (Urine, Random) 02/26/2024 8:16 AM EDT 02/26/2024 11:21 AM EDT us Matthew Sevilla MD LAB URINE ORDERABLES Final Resul t Performing Organization Address [facility] Co de Phone Number [facility] [address] [place] [address] [phone] * (ABNORMAL) Lipid Panel, Standard (02/26/2024 8:16 AM EDT) Triglycerides 213(H) <150 mg/dL [facility] Comment:Desirable Triglyceri de: less than 150 mg/dLBorderline High Triglyceride 150-199 mg/dLHigh Triglyceride: 200-499 mg/dLVery High Triglyceride: greater than or equal to 5OO mg/dL Cholesterol 144 <200 mg/dL [facility] Comment:Desirable Cholestero l: less than 200 mg/dLBorderline High Cholesterol: 200-239 mg/dLHigh Cholesterol: greater than 239 mg/dL LDL Cholesterol Calculated 65 <100 mg/dL [facility] Comment:Desirable LDL: less than 100 mg/dLNear Optimal/Above Optimal LDL: 110- 129 mg/dLBorderline High LDL: 130-159 mg/dLHigh LDL: 160-189 mg/dLVery High LDL: greater than or equal to 190 mg/dL HDL Cholesterol 37(L) >40 mg/dL [facility] Comment:Desirable HDL: great er than 40 mg/dL Note: This HDL assay may give artificially low results in patients with liver disease. 02/26/2024 8:16 AM EDT 02/26/2024 11:07 AM EDT us Matthew Sevilla MD LAB BLOOD ORDERABLES Final Resul t [facility] [address] [facility] [place] [phone] from Last 3 Months or Most Recently Relevant to Health Maintenance Insurance LUCIO [place]NE [id number] DENTAL [facility] Care Teams Therapy Teacher Relationship Specialty Start Date End Date Name, MD Matthew [address] [place], [place] [phone] PCP - General Family Medicine 06/20/21 Yesika Michel, HerbertD [address] [place] [address] Pharmacist Internal Medicine 06/22/23
--- OUTSIDE RECORDS SUMMARY | 2025-03-03 08:52 | XMS_ITS | Data Portability ---
Author Organization [facility] [employer] [facility], [facility] Address [address] [place] [phone] Care Team Providers Care Manager Title Name Role Phone [facility] Referring Provider [phone] Assessment Encounter Date Assessment Date Assessment LastModified by Organization Details LastModified Time 01/08/2022 01/08/2022 I have reviewed and agree with the Assessment and Plan as documented by the Cast Iron Dipper. I provided real -time medical direction via phone for this encounter, and was available for additional phone based assistance as needed. Patient given the opportunity to ask questions. [email or web address] Not available 01/08/2022 15:54:31 Plan of Treatment Reminders Order Date Submit Date Provider Last Modified By Organization Details Last Modified Time Details Appointments None recorded. Lab glucose, fingerstic k, blood 2021 022 [email or web address] [id number] [facility], [address] [place] [address], [phone] 15:54:22 Referral None recorded. Procedures None recorded. Surgeries None recorded. Imaging None recorded. Medication Orders Benadryl 25 mg capsule 2021 022 [facility], [address] [place] [address], [id number], 16:01:25 Patient TargetsNo targets recorded. Patient InstructionsNo instructions recorded. Reason for Referral None Reported. Results Created Date Observation Date Name Description Value Unit Range Abnormal Flag Note LastModifiedBy Organization Detail LastModifiedTime 01/09/2001/08/2022 gluco se finge rstic k, blood Blood Glucose: mg/dl 168 Not Available [address], [phone] 01/08/2022 15:52:43 Result Notes None recorded. Medical Equipment None Reported. Allergies No known drug allergies Medications Name Sig Start Date Stop Date Status Note LastModified by Organization Details LastModified Time tetracycline 500 mg capsule TAKE 2 CAPSULES BY MOUTH EVERY TWELVE HOURS FOR FOURTEEN DAYS active Not Available Not Available No t Available atorvastatin 10 mg tablet TAKE 1 TABLET BY MOUTH EVERY DAY active Not Available Not Available No t Available prednisone 20 mg tablet TAKE 3 TABLETS BY MOUTH EVERY DAY FOR 2 DAYS, THEN 2 TABLETS DAILY FOR 2 DAYS, THEN 1 TABLET DAILY FOR 2 DAYS, THEN STOP active Not Available Not Available No t Available metronidazol e 500 mg tablet TAKE 2 TABLETS BY MOUTH TWICE DAILY FOR FOURTEEN DAYS active Not Available Not Available No t Available omeprazole 40 mg capsule,alma yed release TAKE 1 CAPSULE BY MOUTH EVERY DAY active Not Available Not Available No t Available Bismatrol 262 mg chewable tablet CHEW 2 TABLETS BY MOUTH FOUR TIMES DAILY FOR FOURTEEN DAYS active Not Available Not Available No t Available lisinopril 10 mg tablet TAKE 1 TABLET BY MOUTH EVERY DAY active Not Available Not Available No t Available Banophen 25 mg capsule TAKE 2 CAPSULES BY MOUTH EVERY 4 TO 6 HOURS NEEDED FOR ITCHING active Not Available Not Available No t Available metformin ER 500 mg tablet,exten ded release 24 hr TAKE 2 TABLETS BY MOUTH TWICE DAILY WITH MEALS active Not Available Not Available No t Available mometasone 0.1 % topical cream APPLY A THIN LAYER TO AFFECTED AREA(S) EVERY DAY active Not Available Not Available No t Available Vitamin D3 25 mcg (1,000 unit) capsule TAKE 1 CAPSULE BY MOUTH DAILY active Not Available Not Available Not Available BD Ultra-Fine Short Pen Needle 31 gauge x 5/16 USE ONCE DAILY WITH LANTUS active Not Available Not Available No t Available peg 3350-electro lytes 236 gram-22.74 gram-6.74 gram-5.86 gram solution MIX WITH WATER AND DRINK 8 OUNCES EVERY 10 MINUTES UNTIL BOWEL MOVEMENT IS CLEAR. DO NOT EXCEED 1/2 GALLON active Not Available Not Available N ot Available FreeStyle Lite Strips TEST BLOOD SUGAR TWICE DAILY active Not Available Not Available No t Available Lantus Solostar U-100 Insulin 100 unit/mL (3 mL) subcutaneous pen INJECT 20 UNITS SUBCUTANEOU SLY AT BEDTIME active Not Available Not Available No t Available Vitals Date Recorded Body temperature Body weight Heart rate Oxygen saturation Oxygen saturation in Arterial blood by Pulse oximetry Respiratory rate Body height Heart rate Oxygen saturation Oxygen saturation in Arterial blood by Pulse oximetry Respiratory rate Body height Provider Name and Address Organization Details Last Updated DateTime 2 98.1 [degF] 665020 g 100 /min 98 % 98 % 20 /min 165.1 cm 100 /min 98 % 98 % 20 /min 165.1 cm Not Available [employer] [facility] production 15:51:26 Date Recorded Body temperature Body weight Systolic And Diastolic Systolic And Diastolic Provider Name and Address Organization Details Last Updated DateTime 01/08/2022 98.1 [degF] 107907 g 177/90 mm[Hg] 177/90 mm[Hg] Not Available [employer] - [employer] 2 15:51:26 Social History None recorded. Functional Status None recorded. Mental Status None recorded. Family History Nothing Reported. Medical History No medical history recorded. Past Encounters Encounter ID Performer Location Encounter Start Date Encounter Closed Date Diagnosis/Indication Diagnosis SNOMED-CT Code Diagnosis ICD10 Code Diagnosis Note [id number] Maryam Frye MD [facility] [address] [place] [phone] 01/08/2022 15:39:29 05/01/2022 18:32:30 Pruritic rash 27002695 L28.2 not painful/ warm/ is afebrile does not appear to be cellulitic - with itching appears allergic ? to what no new exposures. Since is sl hyperglyce tanna, does not monitor his own BS closely wanted to avoid steroids. Advised if develops hi fever/trou ble swallowing , CP or SOB to call 911 Hypertensive disorder [phone] [id number] I10 advised has 3 refills on lisinopril - cannot miss doses- take daily at same time Health Concerns Section Related Observation LastModified by Organization Detai ls LastModified Time None Recorded Concern Status LastModified by Organization Details LastModified Time None Recorded Advance Directives Directive None Recorded Payers Insurance Date Sequence Insurance Name Policy Number Policy Barba Covered Member ID Barba Member ID Guarantor Name 10/01/2023 1 [facility] - DOS PRIOR TO 2022 - DUAL ELIGIBLE (MEDICARE REPLACEMENT/AD VANTAGE - HMO) Eddie gutierrez [id number] Eddie santana 10/01/2023 1 [facility] Lysanda - DOS ON OR AFTER 2022 - DUAL ELIGIBLE - NURSING HOME OPTIONS AND ONE CARE (MEDICARE REPLACEMENT/AD VANTAGE - HMO) Eddie gutierrez [id number] Eddie santana Notes Date Note Type Note Provider Name and Address Organization Details Recorded Time 01/08/2022 text/html HPI: Patient reports red raised rash with no known cause wrist to elbow. Onset this morning and worse now. ................... ................... ................... ................... ................... ................... ................... ........ Cast Iron Dipper Note: Patient is a 71 year old male with rash. Patient alert, oriented and ambulatory. Patient in no acute distress, airway patent, breathing normally, skin WPD. Patient states that when he woke up with this morning, from his right wrist to elbow, right shoulder to neck areas were reddish in color and itchy. Through out the day, the itchiness has become worse. Pictures uploaded to [employer] [email or web address] for viewing. Patient has no other symptoms. Patient denies allergies, or any environmental changes. Patient states that is the first time this has happened. Areas are slightly red. No tenderness, swelling, bubbling, open sores, bruising or trauma. No further complaints. Vital signs assessed, patient was hypertensive but has not yet taken his Lisinopril today, he takes it in the afternoon. Patient expressed concern of no refills for Lisinopril, the rx bottle states there is 3 refills remaining. Patient is to call pharmacy today for refill. Red flags discussed. Consulted with Dr. Frye. Patient is to follow up with PCP/care team regarding his signs, symptoms and todays visit. Patient was prescribed Benadryl, prescription was sent to pharmacy for pickup. Patient is to stay hydrated. Monitor health and symptoms for any changes. Contact [employer] for re-visit if symptoms persist. Contact 911 for any discussed red flags or other emergencies. ................... ................... ................... ................... ................... ................... ................... ........ Disposition: FulfilledSEGMD:cari armijo new foods, new meds, skin care products/soaps detergents- very localized erythema- no pain/ no fever- no angioedema or sob Maryam Frye MD [address] [place] [address],[address], [place], [phone], [facility] - [employer] [facility] 01/09/2022 09:44:21
--- OUTSIDE RECORDS SUMMARY | 2025-03-03 08:52 | XMS_ITS | Encounter Summary ---
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 [address] [place] [address] Abstract, Provider Social History Tobacco Use Types Packs/Day Years Used Date Smoking Tobacco: Never Smokeless Tobacco: Never Alcohol Use Standard Drinks/Week Comments No 0 (1 standard drink = 0.6 oz pur e alcohol) Sex Assigned at Date Recorded Not on file documented as of this encounter Plan of Treatment Not on file documented as of this encounter Visit Diagnoses Not on filedocumented in this encounter Care Teams Cotton Classer Relationship Specialty Start Date End Date Jonas Mcdonald MD PCP - General Internal Medicine 10/01/17 Community, Pcp PCP - General Internal Medicine 05/10/19 02/28/24 Matthew Sevilla MD PCP - General Internal Medicine 02/29/24 documented as of this encounter
--- OUTSIDE RECORDS SUMMARY | 2025-03-03 08:52 | XMS_ITS | Clinical Summary ---
Author Organization [facility] [address] [facility] Address [address], [place] Phone Care Team Providers Care Franchise Sales Manager Name Role Phone Srini Reyes MD Primary Care Provider Social History Tobacco Use Types Packs/Day Years Used Date Smoking Tobacco: Never Assessed Sex and Gender Information Value Date Recorded Sex Assigned at Not on file Legal Sex Male 4:31 AM EST Gender Identity Not on file Sexual Orientation Not on file Plan of Treatment Upcoming Encounters Date Type Department Care Team (Late st Contact Info) Description 08/22/2025 11:00 AM EST Office Visit Adult Medicine [facility] [address] [place] [address] Srini Reyes MD [address] [place] [address] Health Maintenance Due Date Last Done Comments Diabetes: Annual GFR (Glomer ular Filtration Rate) 1952 Diabetes: Annual Foot Exam 1962 Diabetes: Annual Retina Eye Exam 1962 DTaP,Tdap,and Td Vaccines (1 - Tdap) 1971 Pneumococcal Vaccine: 50+ Ye ars (1 of 1 - PCV) 2002 Zoster Vaccines (1 of 2) 2002 RSV Immunization Adult Patie nts (1 - Risk 60-74 years 1-dose series) 2012 COVID-19 Vaccine ( - 2023-2 5 season) 2024 Abdominal Aortic Aneurysm (A AA) Screen 07/18/2024 Cholesterol Screening (Lipid Panel) 07/18/2024 Colorectal Cancer Screening: Colonoscopy 07/18/2024 Depression Screening 07/18/2024 Diabetes: Annual Urine Albumin-Creatinine Ratio (uACR) 07/18/2024 Diabetes: Blood Sugar Contro l Test (HGBA1C) 07/18/2024 Falls Risk Assessment 07/18/2024 Hepatitis C Screening 07/18/2024 Hypertension/CHF/CAD Annual BMP Blood Test 07/18/2024 Medicare Annual Wellness Visit 07/18/2024 Social Influencers of Health Screening 07/18/2024 Influenza Vaccine (#1) 2025 HIB Vaccines Aged Out No longer eligi [...] on patient's age to complete this topic MMR Vaccines Aged Out No longer eligi ble based on patient's age to complete this topic Meningococcal ACWY Vaccine Aged Out N o longer eligible based on patient's age to complete this topic Meningococcal B Vaccine Aged Out No l onger eligible based on patient's age to complete this topic RSV Immunization Patients Un prashant 20 months Aged Out No longer eligible b ased on patient's age to complete this topic Varicella Vaccines Aged Out No longer eligible based on patient's age to complete this topic Insurance [facility] Member Subscriber Plan / Payer (Ef fective 2021-Present) Name:Eddie Mike Relation to Subscriber:Self Name:Eddie Mike Payer ID:[id number] Group ID:Not on file Type:Not on file Address: [place] [address] [address] [phone] Care Teams Franchise Sales Manager Relationship Specialty Start Date End Date Srini Reyes MD [address] [place] [address] PCP - General Internal Medicine 01/13/25
--- NOTE | 2025-03-03 09:01 | AM.OFFVISNUR ---
Intake Visit Reasons: H pylori Allergies No Known Allergies Allergy (Verified 08/25/24 09:04) Nursing Note Patient presents for collection of H Pylori breath test. Patient has been fasting for 1 hour (nothing to eat, drink, no chewing gum or smoking) has not taken any antacid medication for at least 2 weeks and has no allergies to artificial sweeteners.?? Assessment & Plan Assessment & Plan (1) H. pylori infection: Code(s): A04.8 - Other specified bacterial intestinal infections Category: Medical (2) Epigastric pain: Code(s): R10.13 - Epigastric pain Category: Medical (3) GERD (gastroesophageal reflux disease): Code(s): K21.9 - Gastro-esophageal reflux disease without esophagitis Category: Medical Plan Patient presents for collection of H Pylori breath test. Patient has been fasting for 1 hour (nothing to eat, drink, no chewing gum or smoking) has not taken any antacid medication for at least 2 weeks and has no allergies to artificial sweeteners.???This test checks for an overgrowth of bacteria in your stomach. We all have bacteria but some may have more than others. It is treatable. if the test comes back negative there is nothing else to do. If the test result is positive we will treat you with 2 antibiotics and a medication to decrease the acid in your stomach (PPI) for 2 weeks. Two weeks after you have completed the treatment we will retest you to make sure the overgrowth has resolved Orders: Orders H Pylori Breath Test Today Patient Instructions: Process for specimen collection and reason for testing was explained to the patient. Specimen collection. Patient instructed to take a deep breath and then exhale into the blue bag, filling it up as much as possible. Patient instructed to drink a mixture of water and the artificial sweetener with a straw. A 15 minute wait period was observed. Patient instructed to take a deep breath and then exhale into the pink bag, filling it up as much as possible Coding Level of Care Code Established Pt Est Pt Level 1 (54574) Patient Type Established Medical Decision Making Straight Forward Diagnoses H. pylori infection A04.8 Epigastric pain R10.13 GERD (gastroesophageal reflux disease) K21.9
== END 2025-03-03 09:12 | disposition home or self-care (01) ==
LOC: HO.HGI 08:44
PROVIDERS: Visit Provider Nurse Practitioner Family
DX: A04.8 Other specified bacterial intestinal infections (principal); R10.13 Epigastric pain; K21.9 Gastro-esophageal reflux disease without esophagitis

== ENCOUNTER 2025-03-03 08:44 | Outpatient (REF) | payer OTHER, SELFPAY | END 2025-03-03 08:45 | disposition home or self-care (01) | LOC: HO.LNP 08:44 | PROVIDERS: Visit Provider Nurse Practitioner Family | DX: K21.9 Gastro-esophageal reflux disease without esophagitis (principal); A04.8 Other specified bacterial intestinal infections; R10.13 Epigastric pain | CPT/HCPCS: 83013; 99211 ==

== ENCOUNTER 2025-03-31 09:46 | Outpatient (REF) | payer OTHER, SELFPAY ==
--- OUTSIDE RECORDS SUMMARY | 2025-03-31 09:49 | XMS_ITS | Clinical Summary ---
Author Organization [employer] Address [address] [facility] [address] [place] [address] Care Team Providers Care Filling And Stapling Machine Operator Name Role Phone Yesika Michel PharmD Unavailable [phone] Moses Gonzalez MD Primary Care Prov ider Allergies No known active allergies Medications Blood Pressure Monitor kitIndications:Hy pertension, unspecified type 1 kit in the morning. 1 kit 3 Active sildenafil (Viagra) 50 MG tabletIndications :Type 2 diabetes mellitus with hyperglycemia, without long-term current use of insulin (CMS/HCC),Erectil e dysfunction due to diseases classified elsewhere TAKE 1 TABLET 1 HOUR BEFORE SEXUAL RELATIONS ONCE DAILY NEEDED. 10 tablet 3 Active pyridoxine (Vitamin B-6) 100 MG tablet 3 Active Continuous Blood Gluc Director Of Field Sales (FreeStyle Quan 2 [place]) device Use to scan sensor at least every 8 hours, as directed, for CGM 1 each 3 Active omeprazole (PriLOSEC) [address] capsuleIndication s:Epigastric pain Take 1 capsule (40 mg) by mouth Once per day. 90 capsule 3 4 Active atorvastatin (Lipitor) 10 MG tabletIndications :Type 2 diabetes mellitus with other specified complication, with long-term current use of insulin (CMS/HCC),Hyperli pidemia due to type 2 diabetes mellitus (CMS/HCC) (CMS/HCC) Take 1 tablet (10 mg) by mouth Once per day. 90 tablet 3 4 Active glucose 4 g chewable tabletIndications :Type 2 diabetes mellitus with other specified complication, with long-term current use of insulin ([facility]) Chew 4 tablets (16 g) if needed for low blood sugar. <70 mg/dL. Recheck blood sugar after 15 minutes and repeat treatment if needed. 20 tablet 5 4 05/05/20 25 Active insulin glargine (Lantus SoloStar) 100 UNIT/ML penIndications:Ty pe 2 diabetes mellitus with other specified complication, with long-term current use of insulin ([facility]) Inject 18 Units under the skin at bedtime. 45 mL 5 4 Active insulin pen needle (UltiCare Micro Pen [place]) 32G x 4 mm miscIndications:T ype 2 diabetes mellitus with other specified complication, with long-term current use of insulin ([facility]) Use as directed to inject insulin 1 times daily 100 each 3 4 Active losartan (Cozaar) 25 MG tabletIndications :Type 2 diabetes mellitus with other specified complication, with long-term current use of insulin ([facility]),Essenti al hypertension Take 1 tablet (25 mg) by mouth Once per day. 90 tablet 3 4 Active glucose blood (FreeStyle Precision Darrel Test) test stripIndications: Type 2 diabetes mellitus with hyperglycemia, with long-term current use of insulin ([facility]) Use to test blood sugar up to 2 times daily, as directed 50 each 5 4 Active Continuous Glucose Sensor (FreeStyle Quan 2 Sensor) miscIndications:T ype 2 diabetes mellitus with hyperglycemia, with long-term current use of insulin ([facility]) USE DIRECTED TO TEST BLOOD SUGAR. CHANGE EVERY 14 DAYS 6 each 3 4 Active TRUEplus Lancets 33G miscIndications:T ype 2 diabetes mellitus with hyperglycemia, with long-term current use of insulin ([facility]) Use to test blood sugar twice daily as directed 100 each 4 Active Blood Glucose Monitoring Suppl (FreeStyle Lite) deviceIndications :Type 2 diabetes mellitus with hyperglycemia, with long-term current use of insulin ([facility]) Inject 1 each under the skin 2 times daily. Use to test blood sugar as directed 1 each 4 Active FREESTYLE LITE test stripIndications: Type 2 diabetes mellitus with hyperglycemia, with long-term current use of insulin ([facility]) Use to test blood sugar 2 times daily 50 strip 5 4 Active Multiple Vitamins-Minerals (PreserVision AREDS 2) capsuleIndication s:Type 2 diabetes mellitus with other specified complication, with long-term current use of insulin (CMS/HCC) TAKE 1 CAPSULE BY MOUTH TWICE DAILY WITH FOOD 60 capsule 11 5 Active Synjardy XR 5-1000 MG 24 hr tabletIndications :Type 2 diabetes mellitus with other specified complication, with long-term current use of insulin (CMS/HCC) TAKE 2 TABLETS BY MOUTH EVERY DAY WITH BREAKFAST 180 tablet 1 5 Active clotrimazole (Lotrimin) 1 % cream Apply topically 2 times daily for 28 days. 30 g 11 5 04/28/20 25 Active Active Problems Problem Noted Date Diagnosed Date Tipped teeth 03/15/2025 Dental plaque 03/08/2024 Localized gingival recession 03/08/2024 Bone loss 03/08/2024 Missing teeth, acquired 03/08/2024 Type 2 diabetes mellitus, wi th long-term current use of insulin 04/08/2023 Assessment & Plan (03/31/2025 9:42 AM EDT): A1c 7.0%, foot exam remarkable for tinea pedis, pending eye exam, will make referral, contine same treatment, keep low carb/no sugar diet Calculus of kidney 03/10/2023 Overview (04/08/2023): infected , inpatient at [facility] infected , inpatient at [facility] 03/20/23 Left UV junction at [facility] Assessment & Plan (04/08/2023 11:50 AM [...] 07/29/2022 Rectal hemorrhage 07/29/2022 Essential hypertension 01/13/2018 Assessment & Plan (03/31/2025 9:39 AM EDT): Controlled, on losartan, no changes will be made, continue low sodium diet and exercise as tolerated, keep bp log, follow up in 3 months Hyperlipidemia 01/11/2018 Assessment & Plan (03/31/2025 9:39 AM EDT): On statin therapy, new labs will be ordered for guidance Type 2 diabetes mellitus wit hout complication, without long-term current use of insulin 01/11/2018 Resolved Problems Problem Noted Date Diagnosed Date Resolved Date Leukemoid reaction 04/08/2023 Assessment & Plan (04/08/2023 11:51 AM EDT): Repeat CBC with differential and LDH. SHARON w PCP Encounters Date Type Department Care Team Description 03/31/2025 9:00 AM EDT Office Visit [facility] [address] [place] [address] Moses Gonzalez MD Essential hypertension (Primary Dx); Type 2 diabetes mellitus with hyperglycemia, with long-term current use of insulin ([facility]); Dietary counseling; Exercise counseling; Type 2 diabetes mellitus with other specified complication, with long-term current use of insulin ([facility]); Mixed hyperlipidemia 03/31/2025 Travel 03/24/2025 Telephone [facility] [address] [place] [address] Moses Gonzalez MD Care Coordination 03/24/2025 Patient Outreach [facility] [address] [place] [address] Moses Gonzalez MD Pre-visit Planning (SDOH screening positive and Tobacco screening negative) 03/15/2025 1:00 PM EDT Office Visit [facility] [address] [place] [address] EscobarSilvia Dental plaque (Primary Dx); Localized gingival recession; Missing teeth, acquired; Bone loss; Tipped teeth 03/14/2025 Telephone [facility] [address] [place] [address] Name, MD Matthew Appointment Request (pt requesting to be seen by Yesika) from Last 3 Months Immunizations Immunization Administration Dates Next Due Hep B, adult 12/21/2023(Deferred: Patient Ref used) Influenza, IIV3, injectable 10/21/2018 Pfizer Covid-19 Vaccine 12+ 12/21/2023(D eferred: Patient Refused),05/17/2021,04/26/2021 Pneumococcal Conjugate PCV 13 07/12/2021, 019 Pneumococcal Conjugate PCV 20 12/21/2023(Deferre d: Patient Refused) RSV Bivalent 12/21/2023(Deferred: Patient Ref used) Tdap 03/25/2017 Social History Tobacco Use Types Packs/Day Years Used Date Smoking Tobacco: Never Passive Smoke Exposure: Never Smokeless Tobacco: Never Tobacco Cessation:Counseling Given: Not Answered Alcohol Use Standard Drinks/Week Comments Never 0 (1 standard drink = 0.6 oz pur e alcohol) Alcohol Answer Date Recorded Frequency of Alcohol Consumption Not on file 02/24/2024 Average Number of Drinks Not on file 024 Frequency of Binge Drinking Not on file 07/0 10/2023 Score 0 02/24/2024 Depression Answer Date [...] from getting things needed for daily living? Yes, it has kept me from medical appointments or getting medications. 03/24/2025 Utilities Answer Date Recorded In the past 12 months, has t he electric, gas, oil or water company threatened to shut off services in your home? No 03/24/2025 Depression Answer Date Recorded Patient Health Questionnaire-2 Score 0 08/11/2023 Internet Access Answer Date Recorded Internet Access Q1 No 03/24/2025 Internet Access Q2 I cannot afford it 03/24/2025 Sex and Gender Information Value Date Recorded Sex Assigned at Male 06/23/2022 10:39 AM EDT Legal Sex Male 10:39 AM EDT Gender Identity Male 06/23/2022 10:39 AM EDT Sexual Orientation Straight 06/23/2022 10 :39 AM EDT Last Filed Vital Signs Vital Sign Reading Time Taken Comments Blood Pressure 138/70 03/31/2025 9:13 AM EDT Pulse 80 03/31/2025 9:13 AM EDT Temperature 36.3 C (97.3 F) 03/31/2025 9:13 AM EDT Respiratory Rate 18 03/31/2025 9:13 AM EDT Oxygen Saturation 96% 03/31/2025 9:13 AM EDT Inhaled Oxygen Concentration - - Weight 94.8 kg (209 lb) 03/31/2025 9:13 AM EDT Height 170.2 cm (5' 7 ) 03/31/2025 9:13 AM EDT Body Mass Index 32.73 03/31/2025 9:13 AM EDT Plan of Treatment Upcoming Encounters Date Type Department Care Team (Late st Contact Info) Description 04/26/2025 11:00 AM EDT Office Visit [facility] [address] [place] [address] Kyle, Kirstin, OD [address] [place] [address] 09/29/2025 10:00 AM EST Office Visit [facility] [address] [place] [address] Escobar, Silvia [address] [place] [address] Health Maintenance Due Date Last Done Comments [...] - PPSV23) 09/06/2021 07/12/2021, 10/21/2018 COVID-19 Vaccine (3 - season) 2024 05/17/2021, 04/26/2021 Depression Screening 08/11/2024 08/11/2023, 08/11/20 23 Diabetes: Urine Protein Screening 02/25/2025 02/26/2024, 11/11/2022, 12/19/2021, Additional history exists Lipid Panel 02/25/2025 02/26/2024, 10/23, 12/19/2021, Additional history exists Influenza Vaccine (#1) 2025 10/21/2018 Diabetes: Hemoglobin A1C 07/01/2025 025, 05/05/2024, 02/02/2024, Additional history exists Colonoscopy 08/19/2025 02/17/2025 Colorectal Cancer Screening 08/19/2025 Dental Oral Exam 09/16/2025 03/15/2025, 03/08/2024 Dental Prophylaxis 09/16/2025 03/15/2025, 0 09/13/2024, 03/08/2024 Dental X-Ray: Bitewings 03/16/2026 03/15/2025, 03/08 SDOH Screening 03/24/2026 03/24/2025 Diabetes: Foot Exam 03/31/2026 03/31/2025, 03/31/2025, 03/31/2025, Additional history exists Tobacco Screening 03/31/2026 03/31/2025 Eye Exam 10/24/2026 10/24/2024, 03/0 10/2024, 10/24/2024, [...] log to all appointments Blood Pressure No Yesika Michel, Sylvia Blood Pressure < 140/90 Blood Pressure 138/70(2024 9:13 AM EDT) No Yesika Michel PharmD Record your blood sugar as directed Result Component No Yesika Michel PharmD Hemoglobin A1c < 7.5 Result Component 7(03/31/2025 9:18 AM EDT) No Yesika Michel PharmD Procedures Procedure Name Priority Date/Time Associated Diagnosis Comments POCT GLYCATED HEMOGLOBIN, TOTAL Routine 03/31/2025 9:18 AM EDT Type 2 diabetes mellitus with hyperglycemia, with long-term current use of insulin ([facility]) POCT GLUCOSE Routine 03/31/2025 9:17 AM EDT Type 2 diabetes mellitus with hyperglycemia, with long-term current use of insulin ([facility]) PERIODIC ORAL EVALUATION - ESTABLISHED PATIENT Routine 03/15/2025 1:00 PM EDT 7,8 INTRAORAL - PERIAPICAL EACH ADDITIONAL RADIOGRAPHIC IMAGE Routine 03/15/2025 1:00 PM EDT Dental plaque Localized gingival recession Missing teeth, acquired Bone loss ORAL HYGIENE INSTRUCTIONS Routine 03/15/2025 1:00 PM EDT Dental plaque Localized gingival recession Missing teeth, acquired Bone loss CASE PRESENTATION, DETAILED AND EXTENSIVE TREATMENT PLANNING Routine 03/15/2025 1:00 PM EDT Dental plaque Localized gingival recession Missing teeth, acquired Bone loss 24,25 INTRAORAL - PERIAPICAL EACH ADDITIONAL RADIOGRAPHIC IMAGE Routine 03/15/2025 1:00 PM EDT Dental plaque Localized gingival recession Missing teeth, acquired Bone loss 10 INTRAORAL - PERIAPICAL FIRST RADIOGRAPHIC IMAGE Routine 03/15/2025 1:00 PM EDT Dental plaque Localized gingival recession Missing teeth, acquired Bone loss TOPICAL APPLICATION OF FLUORIDE VARNISH Routine 03/15/2025 1:00 PM EDT Dental plaque Localized gingival recession Missing teeth, acquired Bone loss BITEWINGS - 4 RADIOGRAPHIC IMAGES Routine 03/15/2025 1:00 PM EDT Dental plaque Localized gingival recession Missing teeth, acquired Bone loss PROPHYLAXIS - ADULT Routine 03/15/2025 1 :00 PM EDT Dental plaque Localized gingival recession Missing teeth, acquired Bone loss HM COLONOSCOPY Routine 02/17/2025 INTRAORAL - COMPLETE SERIES OF RADIOGRAPHIC IMAGES Routine 03/08/2024 9:30 AM EDT ALBUMIN, RANDOM URINE W/CREATININE Routine 02/26/2024 8:16 AM EDT Type 2 diabetes mellitus with other specified complication, with long-term current use of insulin ([facility]) Essential hypertension Occult blood in stools LIPID PANEL, STANDARD Routine 02/26/2024 8:16 AM EDT from Last 3 Months or Most Recently Relevant to Health Maintenance Results * (ABNORMAL) POCT HGB A1C (03/31/2025 9:18 AM EDT) Hemoglobin A1C 7.0(A) 4.0 - 5.7 % QC Media Lot # [id number] Lot# Expiration Date Blood 03/31/2025 9:18 AM EDT Moses Ching MD POINT OF CARE TEST ENTER/EDIT ORDERABLES Final Result * POCT Glucose (03/31/2025 9:17 AM EDT) Glucose Blood, POC 165 60 - 200 mg/dL QC Media Lot # [id number] Lot# Expiration Date Blood Capillary blood specimen / Unknown 03/31/2025 9:17 AM EDT Moses Ching MD POINT OF CARE TEST ENTER/EDIT ORDERABLES Final Result * Hm Colonoscopy (02/17/2025) Colonoscopy Normal Normal Narrative Anabelle Ramos - 02/17/2025 Repeat colonoscopy in 6 months due to poor prep Trent Brownlee MD HEALTH MAINTENANCE Final Result * Albumin, Random Urine W/Creatinine (02/26/2024 8:16 AM EDT) Creatinine, Urine 91.91 mg/dL [facility] Microalbumin Urine 7.0 mg/L [facility] Microalbum Creatinine Ratio Ur 7.6 <30 ug/mg cr [facility] Comment:Albumin/Creatinine R atio Reference Ranges: Normal: < 30 ug/mg creatinine Microalbuminuria: 30 - 300 ug/mg creatinineClinical Albuminuria: > 300 ug/mg creatinine Urine (Urine, Random) 02/26/2024 8:16 AM EDT 02/26/2024 11:21 AM EDT us Matthew Sevilla MD LAB URINE ORDERABLES Final Resul t Performing Organization Address [facility] de Phone Number [facility] [address] [place] [address] [phone] * (ABNORMAL) Lipid Panel, Standard (02/26/2024 8:16 AM EDT) Triglycerides 213(H) <150 mg/dL [facility] Comment:Desirable Triglyceri de: less than 150 mg/dLBorderline High Triglyceride 150-199 mg/dLHigh Triglyceride: 200-499 mg/dLVery High Triglyceride: greater than or equal to 5OO mg/dL Cholesterol 144 <200 mg/dL [facility] Comment:Desirable Cholestero l: less than 200 mg/dLBorderline High Cholesterol: 200-239 mg/dLHigh Cholesterol: greater than 239 mg/dL LDL Cholesterol Calculated 65 <100 mg/dL [facility] Comment:Desirable LDL: less than 100 mg/dLNear Optimal/Above Optimal LDL: 110- 129 mg/dLBorderline High LDL: 130-159 mg/dLHigh LDL: 160-189 mg/dLVery High LDL: greater than or equal to 190 mg/dL HDL Cholesterol 37(L) >40 mg/dL [facility] Comment:Desirable HDL: great er than 40 mg/dL Note: This HDL assay may give artificially low results in patients with liver disease. 02/26/2024 8:16 AM EDT 02/26/2024 11:07 AM EDT us Matthew Sevilla MD LAB BLOOD ORDERABLES Final Resul t Performing Organization Address City[facility] Co de Phone Number [facility] [address] [facility] [place] [phone] from Last 3 Months or Most Recently Relevant to Health Maintenance Insurance [facility] - [facility] Care Teams Filling And Stapling Machine Operator Relationship Specialty Start Date End Date Moses Gonzalez MD [address] [facility] [place] [address] PCP - General Internal Medicine 03/14/25 Yesika Michel, Sylvia [address] [place] [phone] Pharmacist Internal Medicine 06/22/23
--- OUTSIDE RECORDS SUMMARY | 2025-03-31 09:49 | XMS_ITS | Clinical Summary ---
Author Organization [facility] [address] [facility] Address [address] [place], [place] Phone Care Team Providers Care Steel Rule Die Maker Name Role Phone Srini Reyes MD Primary Care Provider [phone] Social History Tobacco Use Types Packs/Day Years [...] 11:00 AM EST Office Visit Adult Medicine [facility] [address] [place] [address] Srini Reyes MD [address] [place] [address] Health Maintenance Due Date Last Done Comments [...] Panel) 07/18/2024 Colorectal Cancer Screening: Colonoscopy 07/18/2024 Diabetes: Annual Urine Albumin-Creatinine Ratio (uACR) 07/18/2024 Diabetes: Blood Sugar Contro l Test (HGBA1C) 07/18/2024 Falls Risk Assessment 07/18/2024 Hepatitis C Screening 07/18/2024 Hypertension/CHF/CAD Annual BMP Blood Test 07/18/2024 Medicare Annual Wellness Visit 07/18/2024 Social Influencers of Health Screening 07/18/2024 Depression Screening 08/24/2024 Influenza Vaccine (#1) 2025 HIB Vaccines Aged [...] age to complete this topic Insurance [facility] Member Subscriber Plan / Payer (Ef fective 2021-Present) Name:Eddie Mike Relation to Subscriber:Self Name:Eddie Mike Payer ID:[id number] Group ID:Not on file Type:Not on file Address: [place] [address] [address] [phone] Care Teams Steel Rule Die Maker Relationship Specialty Start Date End Date Srini Reyes MD [address] [place] [address] PCP - General Internal Medicine 01/13/25
[2025-03-31 14:49] LABS: MANUAL DIFF FLAG NO
[2025-03-31 15:07] LABS: Hematocrit 49.0 % (42.0-52.0); Hemoglobin 16.3 g/dl (14.0-18.0); Imm Gran Abs Auto 0.03 X10*3/uL (0.00-0.03); Imm Gran Pct Auto 0.4 % (0.0-0.4); Lymphocytes Absolute Auto 1.9 X10*3/uL (1.2-4.9); Mean Corpuscular HGB Conc 33.3 g/dl (31.0-36.0); Mean Corpuscular Hemoglobin 30.3 pg (27.0-33.0); Mean Corpuscular Volume 91.1 fL (80.0-98.0); NRBC Abs Auto 0.000 X10*3/uL (0.0-0.012); NRBC Pct Auto 0.0 /100WBC (0.0-0.2); Platelet Count 200 X10*3/uL (160-400); Red Blood Count 5.38 X10*6/uL (4.60-5.80); White Blood Count 7.6 X10*3/uL (4.8-10.8)
[2025-03-31 15:35] LABS: Microalbum/Creatinine Ratio Ur 12.4 ug/mg cr (<30)
[2025-03-31 15:59] LABS: Alanine Aminotransferase 17 U/L (0-40); Albumin Level 4.6 g/dL (3.5-5.0); Alkaline Phosphatase 56 U/L (39-117); Anion Gap 14 (12-20); Aspartate Amino Transferase 24 U/L (5-37); Blood Urea Nitrogen 17 mg/dL (9-16); Calcium 9.1 mg/dL (8.4-10.2); Carbon Dioxide 25 mmol/L (22-29); Chloride 111 mmol/L (96-108); Cholesterol 131 mg/dL (<200); Estimated Glomerular Filt Rate > 60; HDL Cholesterol 37 mg/dL (>40); Potassium 3.9 mmol/L (3.3-5.1); Sodium 146 mmol/L (135-145); Total Protein 7.3 g/dL (6.5-8.0); Triglycerides 117 mg/dL (<150)
== END 2025-03-31 09:47 | disposition home or self-care (01) ==
LOC: HO.CHCLDS 09:46
PROVIDERS: Visit Provider Internal Medicine
DX: E11.65 Type 2 diabetes mellitus with hyperglycemia (principal); Z79.4 Long term (current) use of insulin
CPT/HCPCS: 36415; 80053; 80061; 82043; 82570; 84443; 85025

== ENCOUNTER 2025-04-07 10:16 | Outpatient (AMB) | payer OTHER, SELFPAY ==
--- OUTSIDE RECORDS SUMMARY | 2025-04-07 10:26 | XMS_ITS | Clinical Summary ---
Author Organization [employer] Address [address] [facility] [address] [place] [address] Care Team Providers Care Vault Cashier Name Role Phone Yesika Michel PharmD Unavailable [phone] Moses Gonzalez MD Primary Care Prov [...] MG tablet 3 Active Continuous Blood Gluc It Security Analyst (FreeStyle Quan 2 [place]) device Use to scan sensor at least [...] complication, with long-term current use of insulin ([facility]) Chew 4 tablets (16 g) if needed for low blood sugar. <70 mg/dL. Recheck blood sugar after 15 minutes and repeat treatment if needed. 20 tablet 5 4 05/05/20 25 Active insulin glargine (Lantus SoloStar) 100 UNIT/ML penIndications:Ty pe 2 diabetes mellitus with other specified complication, with long-term current use of insulin ([facility]) Inject 18 Units under the skin at bedtime. 45 mL 5 4 Active insulin pen needle (UltiCare Micro Pen [place]) 32G x 4 mm miscIndications:T ype 2 diabetes mellitus with other specified complication, with long-term current use of insulin ([facility]) Use as directed to inject insulin 1 times daily 100 each 3 4 Active losartan (Cozaar) 25 MG tabletIndications :Type 2 diabetes mellitus with other specified complication, with long-term current use of insulin ([facility]),Essenti al hypertension Take 1 tablet (25 mg) by mouth Once per day. 90 tablet 3 4 Active glucose blood (FreeStyle Precision Darrel Test) test stripIndications: Type 2 diabetes mellitus with hyperglycemia, with long-term current use of insulin ([facility]) Use to test blood sugar up to 2 times daily, as directed 50 each 5 4 Active Continuous Glucose Sensor (FreeStyle Quan 2 Sensor) miscIndications:T ype 2 diabetes mellitus with hyperglycemia, with long-term current use of insulin ([facility]) USE DIRECTED TO TEST BLOOD SUGAR. CHANGE EVERY 14 DAYS 6 each 3 4 Active TRUEplus Lancets 33G miscIndications:T ype 2 diabetes mellitus with hyperglycemia, with long-term current use of insulin ([facility]) Use to test blood sugar twice daily as directed 100 each 4 Active Blood Glucose Monitoring Suppl (FreeStyle Lite) deviceIndications :Type 2 diabetes mellitus with hyperglycemia, with long-term current use of insulin ([facility]) Inject 1 each under the skin 2 times daily. Use to test blood sugar as directed 1 each 4 Active FREESTYLE LITE test stripIndications: Type 2 diabetes mellitus with hyperglycemia, with long-term current use of insulin ([facility]) Use to test blood sugar 2 times [...] 03/10/2023 Overview (04/08/2023): infected , inpatient at [facility] infected , inpatient at [facility] 03/20/23 Left UV junction at [facility] Assessment & Plan (04/08/2023 11:50 AM [...] Description 03/31/2025 9:00 AM EDT Office Visit [facility] [address] [place] [address] Moses Gonzalez MD Essential hypertension (Primary Dx); Type 2 diabetes mellitus with hyperglycemia, with long-term current use of insulin ([facility]); Dietary counseling; Exercise counseling; Type 2 diabetes mellitus with other specified complication, with long-term current use of insulin ([facility]); Mixed hyperlipidemia 03/31/2025 Travel 03/24/[address] [facility] [address] [place] [address] Moses Gonzalez MD Care Coordination 03/24/2025 Patient Outreach [facility] MEDICINE [address] [place] [address] Moses Gonzalez MD Pre-visit Planning (SDOH screening positive and Tobacco screening negative) 03/15/2025 1:00 PM EDT Office Visit [facility] ADULT DENTAL [address] [place] [address] EscobarSilvia Dental plaque (Primary Dx); Localized gingival recession; Missing teeth, acquired; Bone loss; Tipped teeth 03/14/[address] [facility] MEDICINE [address] [place] [address] Name, MD Matthew Appointment Request (pt requesting [...] 11:00 AM EDT Office Visit [facility] OPTOMETRY [address] [place] [address] Kirstin Wright, OD [address] [place] [address] 05/30/2025 11:30 AM EDT Telemedicine [facility] [address] [place] [address] Moses Gonzalez MD [address] [place] [address] 09/29/2025 10:00 AM EST Office Visit [facility] ADULT DENTAL [address] [place] [address] Escobar, Silvia [address] [place] [address] Health Maintenance Due Date Last Done Comments [...] 04/26/2021 Depression Screening 08/11/2024 08/11/2023, 08/11/20 23 Influenza Vaccine (#1) 2025 10/21/2018 Diabetes: Hemoglobin A1C 07/01/2025 025, 05/05/2024, 02/02/2024, Additional history exists Colonoscopy 08/19/2025 02/17/2025 Colorectal Cancer Screening 08/19/2025 Dental Oral Exam 09/16/2025 03/15/2025, 03/08/2024 Dental Prophylaxis 09/16/2025 03/15/2025, 0 09/13/2024, 03/08/2024 Dental X-Ray: Bitewings 03/16/2026 03/15/2025, 03/08 SDOH Screening 03/24/2026 03/24/2025 Diabetes: Foot Exam 03/31/2026 03/31/2025, 03/31/2025, 03/31/2025, Additional history exists Diabetes: Urine Protein Screening 03/31/2026 03/31/2025, 02/26/2024, 11/11/2022, Additional history exists Lipid Panel 03/31/2026 03/31/2025, 07/0 12/2023, 11/11/2022, Additional history exists Tobacco Screening 03/31/2026 03/31/2025 [...] to all appointments Blood Pressure No Yesika Michel PharmD Blood Pressure < 140/90 Blood Pressure 138/70(2024 9:13 AM EDT) No Yesika Michel PharmD Record your blood sugar as directed Result Component No Yesika Michel PharmAnthony Hemoglobin A1c < 7.5 Result Component 7(03/31/2025 9:18 AM EDT) No Yesika Michel PharmAnthony Procedures Procedure Name Priority Date/Time Associated Diagnosis Comments ALBUMIN, RANDOM URINE W/CREATININE Routine 03/31/2025 9:50 AM EDT Type 2 diabetes mellitus with hyperglycemia, with long-term current use of insulin ([facility]) TSH W/REFLEX TO FT4 Routine 03/31/2025 9 :47 AM EDT Type 2 diabetes mellitus with hyperglycemia, with long-term current use of insulin ([facility]) LIPID PANEL, STANDARD Routine 03/31/2025 9:47 AM EDT Type 2 diabetes mellitus with hyperglycemia, with long-term current use of insulin ([facility]) COMPREHENSIVE METABOLIC PANEL Routine 03/31/2025 9:47 AM EDT Type 2 diabetes mellitus with hyperglycemia, with long-term current use of insulin ([facility]) CBC WITH AUTO DIFFERENTIAL Routine 03/31/2025 9:47 AM EDT Type 2 diabetes mellitus with hyperglycemia, with long-term current use of insulin ([facility]) POCT GLYCATED HEMOGLOBIN, TOTAL Routine 03/31/2025 9:18 AM EDT Type 2 diabetes mellitus with hyperglycemia, with long-term current use of insulin ([facility]) POCT GLUCOSE Routine 03/31/2025 9:17 AM EDT Type 2 diabetes mellitus with hyperglycemia, with long-term current use of insulin ([facility]) PERIODIC ORAL EVALUATION - ESTABLISHED PATIENT Routine [...] RADIOGRAPHIC IMAGES Routine 03/08/2024 9:30 AM EDT from Last 3 Months or Most Recently Relevant to Health Maintenance Results * Albumin, Random Urine W/Creatinine (03/31/2025 9:50 AM EDT) Creatinine, Urine 88.09 mg/dL [facility] Microalbumin Urine 11.0 mg/L [facility] Microalbum Creatinine Ratio Ur 12.4 <30 ug/mg cr [facility] Comment:Albumin/Creatinine R atio Reference Ranges: Normal: < 30 ug/mg creatinine Microalbuminuria: 30 - 300 ug/mg creatinineClinical Albuminuria: > 300 ug/mg creatinine Urine (Urine, Random) 03/31/2025 9:50 AM EDT 03/31/2025 2:33 PM EDT Moses Ching MD LAB URINE ORDERABL ES Final Result Performing Organization Address [facility] Co de Phone Number [facility] [address] [place] [phone] * TSH W/Reflex to FT4 (03/31/2025 9:47 AM EDT) Pathologist [facility] TSH reflex Free T4 3.81 0.32 - 4.0 uIU/mL [facility] Blood Venous blood specimen / Unknown 03/31/2025 9:47 AM EDT 03/31/2025 2:55 PM EDT us Moses Ching MD LAB BLOOD ORDERABL ES Final Result Performing Organization Address [facility] de Phone Number [facility] [address] [place] [phone] * (ABNORMAL) CBC auto differential (03/31/2025 9:47 AM EDT) Pathologist [facility] White Blood Count 7.6 4.8 - 10.8 X10*3/uL [facility] Red Blood Count 5.38 4.60 - 5.80 X10*6/uL [facility] Hemoglobin 16.3 14.0 - 18.0 g/dl [facility] Hematocrit 49.0 42.0 - 52.0 % [facility] Mean Corpuscular Volume 91.1 80.0 - 98.0 fL [facility] Mean Corpuscular Hemoglobin 30.3 27.0 - 33.0 pg [facility] Mean Corpuscular HGB Conc 33.3 31.0 - 36.0 g/dl [facility] Red Cell Distribution Width 13.5 11.0 - 16.0 % [facility] Platelet Count 200 160 - 400 X10*3/uL [facility] Mean Platelet Volume 11.6 9.4 - 12.4 fL [facility] Neutrophils Percent Auto 62.3 45 - 73 % [facility] Imm Gran Pct Auto 0.4 0.0 - 0.4 % [facility] Lymphocytes Percent Auto 24.4 20 - 40 % [facility] Monocytes Percent Auto 7.6 2 - 11 % [facility] Eosinophils Percent Auto 4.1(H) 0 - 4 % [facility] Basophils Percent Auto 1.2 0 - 2 % [facility] NRBC Pct Auto 0.0 0.0 - 0.2 /100WBC [facility] Neutrophils Absolute Auto 4.7 2.0 - 8.3 x10*3/uL [facility] Imm Gran Abs Auto 0.03 0.00 - 0.03 X10*3/uL [facility] Lymphocytes Absolute Auto 1.9 1.2 - 4.9 X10*3/uL [facility] Monocytes Absolute Auto 0.6 0.1 - 1.2 X10*3/uL [facility] Eosinophils Absolute Auto 0.3 0.0 - 0.4 X10*3/uL [facility] Basophils Absolute Auto 0.1 0.0 - 0.2 X10*3/uL [facility] NRBC Abs Auto 0.000 0.0 - 0.012 X10*3/uL [facility] Blood Venous blood specimen / Unknown 03/31/2025 9:47 AM EDT 03/31/2025 2:46 PM EDT us Moses Ching MD LAB BLOOD ORDERABL ES Final Result [facility] [address] [place] [phone] * (ABNORMAL) Lipid Panel, Standard (03/31/2025 9:47 AM EDT) Triglycerides 117 <150 mg/dL [facility] Comment:Desirable Triglyceri de: less than 150 mg/dLBorderline High Triglyceride 150-199 mg/dLHigh Triglyceride: 200-499 mg/dLVery High Triglyceride: greater than or equal to 5OO mg/dL Cholesterol 131 <200 mg/dL [facility] Comment:Desirable Cholestero l: less than 200 mg/dLBorderline High Cholesterol: 200-239 mg/dLHigh Cholesterol: greater than 239 mg/dL LDL Cholesterol Calculated 71 <100 mg/dL [facility] Comment:Desirable LDL: less than 100 mg/dLNear Optimal/Above Optimal LDL: 110- 129 mg/dLBorderline High LDL: 130-159 mg/dLHigh LDL: 160-189 mg/dLVery High LDL: greater than or equal to 190 mg/dL HDL Cholesterol 37(L) >40 mg/dL [facility] Comment:Desirable HDL: great er than 40 mg/dL Note: This HDL assay may give artificially low results in patients with liver disease. Blood Venous blood specimen / Unknown 03/31/2025 9:47 AM EDT 03/31/2025 2:55 PM EDT Moses Ching MD LAB BLOOD ORDERABL ES Final Result [facility] [address] [place], [place] [phone] * (ABNORMAL) Comprehensive Metabolic Panel (03/31/2025 9:47 AM EDT) Sodium 146(H) 135 - 145 mmol/L [facility] Potassium 3.9 3.3 - 5.1 mmol/L [facility] Chloride 111(H) 96 - 108 mmol/L [facility] Carbon Dioxide 25 22 - 29 mmol/L [facility] Anion Gap 14 12 - 20 [facility] Urea Nitrogen (BUN) 17(H) 9 - 16 mg/dL [facility] Creatinine, Serum 0.98 0.5 - 1.4 mg/dL [facility] Estimated Glomerular Filt Rate >60 [facility] Comment:Chronic Kidney Disea se: Estimated GFR < 60 mL/min/[id number] Kidney Disease: Estimated GFR < 15 mL/min/1.73m2 Glucose 147(H) 60 - 115 mg/dL [facility] Calcium 9.1 8.4 - 10.2 mg/dL [facility] Bilirubin, Total 0.5 0.0 - 1.0 mg/dL [facility] Aspartate Amino Transferase 24 5 - 37 U/L [facility] Alanine Aminotransferase 17 0 - 40 U/L [facility] Total Protein 7.3 6.5 - 8.0 g/dL [facility] Albumin Level 4.6 3.5 - 5.0 g/dL [facility] Alkaline Phosphatase 56 39 - 117 U/L [facility] Blood Venous blood specimen / Unknown 03/31/2025 9:47 AM EDT 03/31/2025 2:55 PM EDT Moses Ching MD LAB BLOOD ORDERABL ES Final Result Performing Organization Address City/State/[facility] Co de Phone Number [facility] [address] [place] [phone] * (ABNORMAL) POCT HGB A1C (03/31/2025 9:18 [...] in 6 months due to poor prep us Historical Provider HEALTH MAINTENANCE Final Result from Last 3 Months Insurance [facility] RETIREMENT OPTIONS (O D-SNP) DENTAL [facility] Care Teams Vault Cashier Relationship Specialty Start Date End Date Moses Gonzalez MD [address] [place] [address] [place] [phone] PCP - General Internal Medicine 03/14/25 Yesika Michel PharmD [address] [place] [phone] Pharmacist Internal Medicine 06/22/23
--- NOTE | 2025-04-07 10:51 | A.OFFVIS_ITS ---
Vital Signs 04/07/25 11:18 Height 5 ft 7 in Weight 211 lb 10.3 oz BMI 33.1 BP 138/73 Blood Pressure Location Lt brachial Position Sitting Pulse 82 Intake Visit Reasons: edg/colo beltran 02/17 Intake Note: Eddie presents in office today in follow up of EGD and colonoscopy. CC: Patient states that he is doing well and denies having any new symptoms. Hotel Maintenance Technician Required: Yes Hotel Maintenance Technician Language: Instrument Person Services: Hotel Maintenance Technician Present Hotel Maintenance Technician Name: Hero ZAMARRIPA Accompanied by: Self / Same As Patient Allergies No Known Allergies Allergy (Verified 04/07/25 12:04) HPI HPI edg/colo beltran 02/17: Details: Assessment & Plan (1) H. pylori infection: Code(s): A04.8 - Other specified bacterial intestinal infections Category: Medical (2) GERD (gastroesophageal reflux disease): Code(s): K21.9 - Gastro-esophageal reflux disease without esophagitis Category: Medical (3) Epigastric pain: Code(s): R10.13 - Epigastric pain Category: Medical (4) Bloody stools: Code(s): K92.1 - Melena Category: Medical Plan ENGLISH #WARNER Live He completed the quad therapy and is feeling better. He only gets epi pain when he is hungry and it will resolve quickly with eating. He thinks that he can remember the exact day in 1981 when the symptoms onset and he is feeling much better now that has been treated. We will need to do an H pylori breath test to confirm eradication. Has not been contacted yet for procedures. He continues to have rectal bleeding and it is only on the toilet tissue and not copious.. ROV 6 mos. Orders: Orders H Pylori Breath Test Today Medications: Discontinued omeprazole Discontinued Reason: Doctor's Order 40 mg PO BID 30 days 60 caps 3RF K21.9 - Gastro-esophageal reflux disease without esophagitis, R10.13 - Epigastric pain famotidine (Pepcid) Discontinued Reason: Patient no longer taking 20 mg PO BID 60 tabs 6RF K21.9 - Gastro-esophageal reflux disease without esophagitis Laboratory Tests 07/06/24 03/03/25 10:35 09:15 H. pylori Breath Test Positive A Negative EGD/COLONOSCOPY 02/17/25 Findings: Larynx:normal Esophagus: GE junction at 38 cm, diaphragm hiatus at 38 cm, irregular z line with mild esophagitis, bx taken Stomach: few erosions and erythema. Biopsies were obtained. Grade 2 flap valve on retroflexed examination of the cardia. Duodenum: mild bulbar duodenitis Findings: Terminal Ileum-normal Cecum:normal Ascending Colon: x 4 pedunculated polyps 10-14 mm, removed with cold snare and clips applied x4 to the stalks, retrieved with net., moderate severe diverticulosis Transverse Colon - x 2 semi pedunculated polyps 10 mm removed with cold snare Descending Colon: x 1 pedunculated polyp 14 mm removed with hot snare after epinpehrine injection then one clip to stalk, x 2 sessile polyps removed with cold snare Sigmoid Colon: severe diverticulosis Rectum: Retroflexion with small internal hemorrhoids, grade I Anorectum - normal Impression and Post Procedure Diagnosis: Endoscopy Findings: erosive gastritis possible barretts Colonoscopy Findings: diverticulosis colon polyps x 9 internal hemorrhoids Plan: Await Pathology results Repeat Colonoscopy in 6 months or earlier if clinically indicated High fiber diet leaflet avoid straining at stool, epsom salts and sitz bath, anusol supps or cream Received: 02/17/25 Diagnosis A. Stomach, biopsy: Antral-type mucosa with mild chronic active/erosive inflammation and surface hyperplastic changes; no Helicobacter organisms seen. B. GE junction, biopsy: - Active esophagitis (maximum eosinophil count 3 per high powered field). - No glandular epithelium present. C. Cecum, polypectomy: Tubular adenoma; negative for high-grade dysplasia or carcinoma. D. Colon, ascending, polypectomies: Tubular adenomata (2); negative for high- grade dysplasia or carcinoma. E. Colon, transverse, polypectomies: Fragments of tubular adenomata; negative for high-grade dysplasia or carcinoma. F. Colon, descending, polypectomy: Fragments of tubulovillous adenoma; negative for high-grade dysplasia or carcinoma. TODAYS VISIT [place] #V live Pt requests live interpreters instead of tele. He is agreeable to the 6 mos re scope. Despite the EGD findings,he feels entirely well [facility] Medical History (Updated 04/07/25 @ 12:23 by SARIAH Griffiths) Kidney stones Melena Bloody stools Obese Type 2 diabetes mellitus, with long-term current use of insulin Dyslipidemia Essential hypertension Surgical History (Updated 04/07/25 @ 10:59 by SARIAH Griffiths) H/O colonoscopy H/O excision of epidermal inclusion cyst (04/16/23) Family History Mother No problems noted. Father No problems noted. Social History Housing: Apartment Alcohol intake: never Patient Tobacco Use Status: Never used Tobacco e-Cigarette/Vaping Use: Never Used Second Hand Smoke Exposure: No service: No Current occupational status: disabled Review of Systems Const Denies fatigue, Denies fever(s), Denies night sweats, Denies poor appetite and Denies weight loss ENT Reports Normal hearing present, Denies dental pain, Denies dysphagia, Denies hearing loss, Denies mouth pain, Denies odynophagia, Denies throat swelling, Denies tongue swelling and Reports other (Dentition adequate) Card Reports no additional complaints Resp Reports no additional complaints GI Details: Denies abdominal pain, Denies melena, Denies bloating, Denies hematochezia, Denies constipation, Denies GI cramping, Denies dysphagia, Denies excessive flatus, Denies early satiety, Reports heartburn, Denies diarrhea, Denies nausea, Denies odynophagia, Denies vomiting and Denies hematemesis Skin/Breast Denies pruritus, Denies lesions, Denies rash and Denies jaundice Neuro Reports Normal hearing present, Denies Abnormal speech present and Reports memory loss Psych Reports memory loss Endo Denies fatigue Aller/Immun Denies throat swelling and Denies tongue swelling Physical Exam Vital Signs: Last Vital Signs Pulse 82 04/07/25 11:18 BP 138/73 04/07/25 11:18 BMI result Body Mass Index 33.1 Const General: cooperative, no acute distress, well developed and well groomed Nutritional Appearance: well nourished and obese centrally obese Orientation/consciousness: oriented to person, oriented to place and oriented to time Limitations: language barrier HEENT Head: Yes normocephalic and Yes atraumatic Eyes General: appearance normal, both eyes and all related structures Pupils: Equal, round and reactive pupils present Neck Neck: Yes normal visual inspection and Yes no lymphadenopathy Thyroid: Thyroid normal Resp Effort & Inspection: normal respiratory effort and able to speak in complete sentences Auscultation: clear to auscultation bilaterally Cardio Rate: regular rate Rhythm: regular rhythm Heart sounds: Normal, physiologic split S2 sound present Peripheral pulses: radial pulses present and posterior tibial pulses present GI Inspection: No distended, No Abdominal panniculus present and Yes obesity Palpation (GI): Soft to palpation, nontender, no guarding, not rigid and No hepatosplenomegaly present Percussion: Yes normal to percussion Auscultation: normal bowel sounds Rectal Exam - Male: Yes deferred Skin General skin exam: no rashes or lesions noted, turgor normal, skin not dry, no jaundice, No spider nevi and no striae Rashes: no rashes Nails: normal Neuro General: oriented to person, oriented to place and oriented to time Cranial nerves: Yes Equal, round and reactive pupils present and Yes Normal hearing present Speech: No Abnormal speech present Extrem General: Yes normal to inspection, No clubbing, No cyanosis and No edema Psych Appearance: grossly normal and well kempt Mental Status: mental status grossly normal Speech and movement: Normal speech and movement present Affect: normal affect Attitude: cooperative Thought process: Normal thought process present and not confabulating Thought content: Normal thought content present Insight: Fair insight present (Psych) Judgement: Fair judgement present (Psych) Results Reviewed Results Reviewed: Laboratory Tests 07/06/24 03/03/25 10:35 09:15 H. pylori Breath Test Positive A Negative EGD/COLONOSCOPY 02/17/25 Findings: Larynx:normal Esophagus: GE junction at 38 cm, diaphragm hiatus at 38 cm, irregular z line with mild esophagitis, bx taken Stomach: few erosions and erythema. Biopsies were obtained. Grade 2 flap valve on retroflexed examination of the cardia. Duodenum: mild bulbar duodenitis Findings: Terminal Ileum-normal Cecum:normal Ascending Colon: x 4 pedunculated polyps 10-14 mm, removed with cold snare and clips applied x4 to the stalks, retrieved with net., moderate severe diverticulosis Transverse Colon - x 2 semi pedunculated polyps 10 mm removed with cold snare Descending Colon: x 1 pedunculated polyp 14 mm removed with hot snare after epinpehrine injection then one clip to stalk, x 2 sessile polyps removed with cold snare Sigmoid Colon: severe diverticulosis Rectum: Retroflexion with small internal hemorrhoids, grade I Anorectum - normal Impression and Post Procedure Diagnosis: Endoscopy Findings: erosive gastritis possible barretts Colonoscopy Findings: diverticulosis colon polyps x 9 internal hemorrhoids Plan: Await Pathology results Repeat Colonoscopy in 6 months or earlier if clinically indicated High fiber diet leaflet avoid straining at stool, epsom salts and sitz bath, anusol supps or cream Received: 02/17/25 Diagnosis A. Stomach, biopsy: Antral-type mucosa with mild chronic active/erosive inflammation and surface hyperplastic changes; no Helicobacter organisms seen. B. GE junction, biopsy: - Active esophagitis (maximum eosinophil count 3 per high powered field). - No glandular epithelium present. C. Cecum, polypectomy: Tubular adenoma; negative for high-grade dysplasia or carcinoma. D. Colon, ascending, polypectomies: Tubular adenomata (2); negative for high- grade dysplasia or carcinoma. E. Colon, transverse, polypectomies: Fragments of tubular adenomata; negative for high-grade dysplasia or carcinoma. F. Colon, descending, polypectomy: Fragments of tubulovillous adenoma; negative for high-grade dysplasia or carcinoma. Assessment & Plan Assessment & Plan (1) GERD (gastroesophageal reflux disease): Code(s): K21.9 - Gastro-esophageal reflux disease without esophagitis Category: Medical (2) H. pylori infection: Code(s): A04.8 - Other specified bacterial intestinal infections Category: Medical (3) Bloody stools: Code(s): K92.1 - Melena Category: Medical (4) Epigastric pain: Code(s): R10.13 - Epigastric pain Category: Medical (5) Tubular adenoma of colon: Comment: 01/2025 scope=9TA's repeat 6 mos Code(s): D12.6 - Benign neoplasm of colon, unspecified Category: Medical Plan History of Present Illness - The patient is a 74-year-old male presenting with follow-up for gastrointestinal concerns. - Previously treated for Helicobacter pylori infection, which caused gastric mucosal irritation. This condition is now healing as observed in a recent endoscopy. - Recently underwent colonoscopy where nine polyps were identified; due to the number of polyps, a follow-up colonoscopy is planned for six months. The procedure was well tolerated. The results were explained and the patient is agreeable to the follow-up interval as stated. The bowel pattern has returned to normal. Education was provided to tell any 1st degree relatives about their findings to be sure that they are screened by age 45. Educated that they will be put on a recall list when it is time for their repeat scope but should they move out of state or away from the hospital they will need to remember along with their primary to repeat the procedure in a timely fashion to avoid any adverse complications. - Discussed familial implications, particularly in relation to increased genetic risk for offspring, recommending early screening for colon cancer. This information was typed out for him as a note as he has a poor memory and this was his request. Plan 1. The patient is informed about polypectomy and resolution clips placed during the procedure for better management and to reduce the risk of potential gastrointestinal bleeding post-procedure.: Patient was informed and verbally consented to the use of an ambient scribe for clinic note documentation during this visit. Patient Instructions - Schedule and attend a repeat colonoscopy in six months. - Inform children about family history of colon polyps and the importance of screening from age 45. - Keep note of any new gastrointestinal symptoms and report them promptly. - Maintain a follow-up visit schedule as advised to ensure continuous monitoring of gastrointestinal health. - Carry the resolution clips paper for reference in case of any gastrointestinal symptoms. Return office visit in 6 months Medications: New omeprazole 40 mg PO DAILY 30 caps 6RF Patient Instructions: Jeremiah BhattiDon Daniels was found to have 9 pre cancerous polyps on his colonoscopy 01/2025. One of them was a slightly higher grade polyp, and because of this and the great nubmer of polyps he needs to repeat the colonoscoy in 6 months. Your children may have a higher genetic risk of colon cancer and should be screened via colonoscopy starting at age 45. Coding Level of Care Code Est Pt Level 3 (07403) Diagnoses GERD (gastroesophageal reflux disease) K21.9 H. pylori infection A04.8 Bloody stools K92.1 Epigastric pain R10.13 Tubular adenoma of colon D12.6
[2025-04-07 11:18] VITALS: BP 138/73; PULSE 82; BMI 33.1
== END 2025-04-07 12:44 | disposition home or self-care (01) ==
PROVIDERS: Visit Provider Nurse Practitioner
DX: K21.9 Gastro-esophageal reflux disease without esophagitis (principal); A04.8 Other specified bacterial intestinal infections; K92.1 Melena; R10.13 Epigastric pain; D12.6 Benign neoplasm of colon, unspecified
CPT/HCPCS: 99213

== ENCOUNTER → 2025-04-07 10:16 | Outpatient (BNVA) | payer OTHER, SELFPAY | PROVIDERS: Visit Provider Nurse Practitioner | DX: Z71.2 Person consulting for explanation of examination or test findings (principal); A04.8 Other specified bacterial intestinal infections; K21.9 Gastro-esophageal reflux disease without esophagitis; R10.13 Epigastric pain; K92.1 Melena | CPT/HCPCS: 99212 ==

== ENCOUNTER 2025-06-01 08:09 | Day surgery (SDC) | payer OTHER, SELFPAY ==
--- OUTSIDE RECORDS SUMMARY | 2025-05-19 12:51 | XMS_ITS | Clinical Summary ---
Author Organization [employer] Address [address] [facility] [address] [place] [address] Care Team Providers Care Postage Machine Operator Name Role Phone Yesika Michel PharmD Unavailable [phone] Moses Gonzalez MD Primary Care Prov ider Allergies No known active allergies Medications Blood Pressure Monitor kitIndications:H ypertension, unspecified type 1 kit in the morning. 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 10 tablet 12/24/19 23 Active pyridoxine (Vitamin B-6) 100 MG tablet 05/29/20 23 Active Continuous Blood Gluc Manager Pool (FreeStyle Quan 2 Crescent) device Use to scan sensor at least every 8 hours, as directed, for CGM 1 each 06/22/20 23 Active omeprazole (PriLOSEC) [address] Kinney ns:Epigastric pain Take 1 capsule (40 mg) by mouth Once per day. 90 capsule 3 04/14/20 24 Active atorvastatin (Lipitor) 10 MG tabletIndication s:Type 2 diabetes mellitus with other specified complication, with long-term current use of insulin (CMS/HCC),Hyperl ipidemia due to type 2 diabetes mellitus (CMS/HCC) (CMS/HCC) Take 1 tablet (10 mg) by mouth Once per day. 90 tablet 3 05/05/20 24 Active glucose 4 g chewable tabletIndication s:Type 2 diabetes mellitus with other specified complication, with long-term current use of insulin ([facility]) Chew 4 tablets (16 g) if needed for low blood sugar. <70 mg/dL. Recheck blood sugar after 15 minutes and repeat treatment if needed. 20 tablet 05/05/20 24 Active insulin glargine (Lantus SoloStar) 100 UNIT/ML penIndications:T ype 2 diabetes mellitus with other specified complication, with long-term current use of insulin (CMS/[facility]) Inject 18 Units under the skin at bedtime. 45 mL 05/05/20 24 Active insulin pen needle (BitComettiCare Micro Pen [place]) 32G x 4 mm miscIndications: Type 2 diabetes mellitus with other specified complication, with long-term current use of insulin (CMS/HCC) Use as directed to inject insulin 1 times daily 100 each 3 05/05/20 24 Active losartan (Cozaar) 25 MG tabletIndication s:Type 2 diabetes mellitus with other specified complication, with long-term current use of insulin ([facility]),Essent ial hypertension Take 1 tablet (25 mg) by mouth Once per day. 90 tablet 3 05/05/20 24 Active glucose blood (FreeStyle Precision Darrel Test) test stripIndications :Type 2 diabetes mellitus with hyperglycemia, with long-term current use of insulin ([facility]) Use to test blood sugar up to 2 times daily, as directed 50 each 5 07/12/20 24 Active Continuous Glucose Sensor (FreeStyle Quan 2 Sensor) miscIndications: Type 2 diabetes mellitus with hyperglycemia, with long-term current use of insulin ([facility]) USE DIRECTED TO TEST BLOOD SUGAR. CHANGE EVERY 14 DAYS 6 each 3 07/12/20 24 Active TRUEplus Lancets 33G miscIndications: Type 2 diabetes mellitus with hyperglycemia, with long-term current use of insulin ([facility]) Use to test blood sugar twice daily as directed 100 each 07/12/20 24 Active Blood Glucose Monitoring Suppl (FreeStyle Lite) deviceIndication s:Type 2 diabetes mellitus with hyperglycemia, with long-term current use of insulin (CMS/[facility]) Inject 1 each under the skin 2 times daily. Use to test blood sugar as directed 1 each 07/12/20 24 Active FREESTYLE LITE test stripIndications :Type 2 diabetes mellitus with hyperglycemia, with long-term current use of insulin (CMS/HCC) Use to test blood sugar 2 times daily 50 strip 5 07/12/20 24 Active Multiple Vitamins-Mineral s (PreserVision AREDS 2) capsuleIndicatio ns:Type 2 diabetes mellitus with other specified complication, with long-term current use of insulin (CMS/HCC) TAKE 1 CAPSULE BY MOUTH TWICE DAILY WITH FOOD 60 capsule 11 09/14/19 25 Active Synjardy XR 5-1000 MG 24 hr tabletIndication s:Type 2 diabetes mellitus with other specified complication, with long-term current use of insulin (CMS/HCC) TAKE 2 TABLETS BY MOUTH EVERY DAY WITH BREAKFAST 180 tablet 1 05/09/20 25 Active Synjardy XR 5-1000 MG 24 hr tabletIndication s:Type 2 diabetes mellitus with other specified complication, with long-term current use of insulin (CMS/HCC) TAKE 2 TABLETS BY MOUTH EVERY DAY WITH BREAKFAST 180 tablet 1 11/12/19 25 025 Discontinued clotrimazole (Lotrimin) 1 % cream Apply topically 2 times daily for 28 days. 30 g 11 03/31/20 25 025 Active Problems Problem Noted Date Diagnosed Date [...] 03/10/2023 Overview (04/08/2023): infected , inpatient at [facility] infected , inpatient at [facility] 03/20/23 Left UV junction at [facility] Assessment & Plan (04/08/2023 11:50 AM [...] EDT): Repeat CBC with differential and LDH. FU w PCP Encounters Date Type Department Care Team Description 05/07/2025 Refill [facility] MEDICINE [address] [place] [phone] Matthew Sevilla MD Type 2 diabetes mellitus with other specified complication, with long-term current use of insulin (CMS/HCC) 03/31/2025 9:00 AM EDT Office Visit [facility] MED & PEDS [address] [place] [address] Moses Gonzalez MD Essential hypertension (Primary Dx); Type 2 diabetes mellitus with hyperglycemia, with long-term current use of insulin ([facility]); Dietary counseling; Exercise counseling; Type 2 diabetes mellitus with other specified complication, with long-term current use of insulin ([facility]); Mixed hyperlipidemia 03/31/2025 Travel 03/24/2025 Telephone [facility] MED & PEDS [address] [place] [address] Moses Gonzalez MD Care Coordination 03/24/2025 Patient Outreach [address] [address] Moses Gonzalez MD Pre-visit Planning (SDOH screening positive and Tobacco screening negative) 03/15/2025 1:00 PM EDT Office Visit [facility] ADULT DENTAL [address] [place] [address] EscobarSilvia Dental plaque (Primary Dx); Localized gingival recession; Missing teeth, acquired; Bone loss; Tipped teeth 03/14/2025 Telephone [facility] MEDICINE [address] [place] [phone] Matthew Sevilla MD Appointment Request (pt requesting to be seen [...] Care Team (Late st Contact Info) Description 05/30/2025 11:30 AM EDT Telemedicine [facility] MED & PEDS [address] [place] [address] Moses Gonzalez MD [address] [place] [address] 06/14/2025 9:00 AM EDT Office Visit [facility] MED & PEDS [address] [place] [address] Moses Gonzalez MD [address] [place] [address] 06/27/2025 9:00 AM EST Office Visit [facility] OPTOMETRY [address] [place] [address] Kyle, Kirstin, OD [address] [place] [address] 09/29/2025 10:00 AM EST Office Visit [facility] ADULT DENTAL [address] [place] [address] Escobar Silvia [address] [place] [address] Health Maintenance Due Date Last Done Comments CT Colonography 1952 FIT DNA/Cologuard 1952 FIT 1952 FOBT 1950 Sigmoidoscopy 1952 Alcohol/Substance Use Screening 1964 Hepatitis C Screening 1970 Zoster Vaccines (1 of 2) 2002 RSV Patients and Patients Aged 60 years or older (1 - Risk 60-74 years 1-dose series) 2012 Pneumococcal Vaccine: 50+ Years (2 of 2 - PPSV23) 09/06/2021 07/12/2021, 10/21/2018 Depression Screening 08/11/2024 08/11/2023, 08/11/20 23 COVID-19 Vaccine ( - season) 2025 05/17/2021, 04/26/2021 Influenza Vaccine (#1) 2025 10/21/2018 Diabetes: Hemoglobin [...] Blood Pressure 138/70(2024 9:13 AM EDT) No Puia, Yesika, PharmD Record your blood sugar as directed Result Component No Puia, Yesika, PharmD Hemoglobin A1c < 7.5 Result Component 7(03/31/2025 9:18 AM EDT) No Puia, Yesika, PharmD Procedures Procedure Name Priority Date/Time Associated Diagnosis Comments ALBUMIN, RANDOM URINE W/CREATININE Routine 03/31/2025 9:50 AM EDT Type 2 diabetes mellitus with hyperglycemia, with long-term current use of insulin ([facility]) TSH W/REFLEX TO FT4 Routine 03/31/2025 9 :47 AM EDT Type 2 diabetes mellitus with hyperglycemia, with long-term current use of insulin ([facility]) LIPID PANEL, STANDARD Routine 03/31/2025 9:47 AM EDT Type 2 diabetes mellitus with hyperglycemia, with long-term current use of insulin ([facility]) COMPREHENSIVE METABOLIC PANEL Routine 03/31/2025 9:47 AM EDT Type 2 diabetes mellitus with hyperglycemia, with long-term current use of insulin ([facility]) CBC WITH AUTO DIFFERENTIAL Routine 03/31/2025 9:47 AM EDT Type 2 diabetes mellitus with hyperglycemia, with long-term current use of insulin ([facility]) POCT GLYCATED HEMOGLOBIN, TOTAL Routine 03/31/2025 9:18 AM EDT Type 2 diabetes mellitus with hyperglycemia, with long-term current use of insulin ([facility]) POCT GLUCOSE Routine 03/31/2025 9:17 AM EDT Type 2 diabetes mellitus with hyperglycemia, with long-term current use of insulin ([facility]) PERIODIC ORAL EVALUATION - ESTABLISHED PATIENT Routine [...] 9:50 AM EDT) Creatinine, Urine 88.09 mg/dL [facility] Microalbumin Urine 11.0 mg/L [facility] Microalbum Creatinine Ratio Ur 12.4 <30 ug/mg cr [facility] Comment:Albumin/Creatinine R atio Reference Ranges: Normal: < 30 ug/mg creatinine Microalbuminuria: 30 - 300 ug/mg creatinineClinical Albuminuria: > 300 ug/mg creatinine Urine (Urine, Random) 03/31/2025 9:50 AM EDT 03/31/2025 2:33 PM EDT us Moses Ching MD LAB URINE ORDERABL ES Final Result Performing Organization Address City/[facility]/ZIP Co de Phone Number [facility] [address] [place] [phone] * TSH W/Reflex to FT4 (03/31/2025 9:47 AM EDT) TSH reflex Free T4 3.81 0.32 - 4.0 uIU/mL [facility] Blood Venous blood specimen / Unknown 03/31/2025 9:47 AM EDT 03/31/2025 2:55 PM EDT Moses Ching MD LAB BLOOD ORDERABL ES Final Result Performing Organization Address [facility] Co de Phone Number [facility] [address] [place] [phone] * (ABNORMAL) CBC auto differential (03/31/2025 9:47 AM EDT) White Blood Count 7.6 4.8 - 10.8 X10*3/uL [facility] Red Blood Count 5.38 4.60 - 5.80 X10*6/uL [facility] Hemoglobin 16.3 14.0 - 18.0 g/dl [facility] Hematocrit 49.0 42.0 - 52.0 % [facility] Mean Corpuscular Volume 91.1 80.0 - 98.0 fL [facility] Mean Corpuscular Hemoglobin 30.3 27.0 - 33.0 pg [facility] Mean Corpuscular HGB Conc 33.3 31.0 - 36.0 g/dl [facility] Red Cell Distribution Width 13.5 11.0 - 16.0 % [facility] Platelet Count 200 160 - 400 X10*3/uL [facility] Mean Platelet Volume 11.6 9.4 - 12.4 fL [facility] Neutrophils Percent Auto 62.3 45 - 73 % [facility] Imm Gran Pct Auto 0.4 0.0 - 0.4 % [facility] Lymphocytes Percent Auto 24.4 20 - 40 % [facility] Monocytes Percent Auto 7.6 2 - 11 % [facility] Eosinophils Percent Auto 4.1(H) 0 - 4 % [facility] Basophils Percent Auto 1.2 0 - 2 % [facility] NRBC Pct Auto 0.0 0.0 - 0.2 /100WBC [facility] Neutrophils Absolute Auto 4.7 2.0 - 8.3 x10*3/uL [facility] Imm Gran Abs Auto 0.03 0.00 - 0.03 X10*3/uL [facility] Lymphocytes Absolute Auto 1.9 1.2 - 4.9 X10*3/uL [facility] Monocytes Absolute Auto 0.6 0.1 - 1.2 X10*3/uL [facility] Eosinophils Absolute Auto 0.3 0.0 - 0.4 X10*3/uL [facility] Basophils Absolute Auto 0.1 0.0 - 0.2 X10*3/uL [facility] NRBC Abs Auto 0.000 0.0 - 0.012 X10*3/uL [facility] Blood Venous blood specimen / Unknown 03/31/2025 9:47 AM EDT 03/31/2025 2:46 PM EDT Moses Ching MD LAB BLOOD ORDERABL ES Final Result Performing Organization Address [facility] Co de Phone Number [facility] [address] [place] [phone] * (ABNORMAL) Lipid Panel, Standard (03/31/2025 9:47 AM EDT) Triglycerides 117 <150 mg/dL [facility] Comment:Desirable Triglyceri de: less than 150 mg/dLBorderline High Triglyceride 150-199 mg/dLHigh Triglyceride: 200-499 mg/dLVery High Triglyceride: greater than or equal to 5OO mg/dL Cholesterol 131 <200 mg/dL [facility] Comment:Desirable Cholestero l: less than 200 mg/dLBorderline High Cholesterol: 200-239 mg/dLHigh Cholesterol: greater than 239 mg/dL LDL Cholesterol Calculated 71 <100 mg/dL [facility] Comment:Desirable LDL: less than 100 mg/dLNear Optimal/Above Optimal LDL: 110- 129 mg/dLBorderline High LDL: 130-159 mg/dLHigh LDL: 160-189 mg/dLVery High LDL: greater than or equal to 190 mg/dL HDL Cholesterol 37(L) >40 mg/dL [facility] Comment:Desirable HDL: great er than 40 mg/dL Note: This HDL assay may give artificially low results in patients with liver disease. Blood Venous blood specimen / Unknown 03/31/2025 9:47 AM EDT 03/31/2025 2:55 PM EDT us Moses Ching MD LAB BLOOD ORDERABL ES Final Result Performing Organization Address [facility]/ZIP Co de Phone Number [facility] [address] [place] [phone] * (ABNORMAL) Comprehensive Metabolic Panel (03/31/2025 9:47 AM EDT) Sodium 146(H) 135 - 145 mmol/L [facility] Potassium 3.9 3.3 - 5.1 mmol/L [facility] Chloride 111(H) 96 - 108 mmol/L [facility] Carbon Dioxide 25 22 - 29 mmol/L [facility] Anion Gap 14 12 - 20 [facility] Urea Nitrogen (BUN) 17(H) 9 - 16 mg/dL [facility] Creatinine, Serum 0.98 0.5 - 1.4 mg/dL [facility] Estimated Glomerular Filt Rate >60 [facility] Comment:Chronic Kidney Disea se: Estimated GFR < 60 mL/min/[id number] Kidney Disease: Estimated GFR < 15 mL/min/1.73m2 Glucose 147(H) 60 - 115 mg/dL [facility] Calcium 9.1 8.4 - 10.2 mg/dL [facility] Bilirubin, Total 0.5 0.0 - 1.0 mg/dL [facility] Aspartate Amino Transferase 24 5 - 37 U/L [facility] Alanine Aminotransferase 17 0 - 40 U/L [facility] Total Protein 7.3 6.5 - 8.0 g/dL [facility] Albumin Level 4.6 3.5 - 5.0 g/dL [facility] Alkaline Phosphatase 56 39 - 117 U/L [facility] Blood Venous blood specimen / Unknown 03/31/2025 9:47 AM EDT 03/31/2025 2:55 PM EDT us Moses Ching MD LAB BLOOD ORDERABL ES Final Result [facility] [address] [place] [phone] * (ABNORMAL) POCT HGB A1C (03/31/2025 [...] Media Lot # [id number] Lot# Expiration Date 121 Blood Capillary blood specimen / Unknown 03/31/2025 9:17 AM EDT Moses Ching MD POINT OF CARE TEST ENTER/EDIT ORDERABLES Final Result * Colonoscopy (02/17/2025) Colonoscopy Normal Normal Narrative Anabelle Ramos - 02/17/2025 Repeat colonoscopy in 6 months due to poor prep Trent Brownlee MD HEALTH MAINTENANCE Final Result from Last 3 Months Insurance [facility] OPTIONS (O D-SNP) [place] [place] [id number] [id number] [place] [address] DENTAL - [facility] * Guarantor: Eddie Mike Account Type Relation to Patient Date of Phone Billing Address Personal/Family Self 40 [address] Care Teams Postage Machine Operator Relationship Specialty Start Date End Date Moses Gonzalez MD [address] [facility] [place] [phone] PCP - General Internal Medicine 03/14/25 Yesika Michel PharmD [address] [place] [phone] Pharmacist Internal Medicine 06/22/23
--- OUTSIDE RECORDS SUMMARY | 2025-05-19 12:51 | XMS_ITS | Encounter Summary ---
Author Organization [employer] Address [address] [facility] [address] [place] [address] Care Team Providers Care Voice And Data Technician Name Role Phone Name, Matthew ARRINGTON Primary Care Provider [phone] Yesika Michel PharmD Unavailable [phone] Moses Gonzalez MD Primary Care Prov ider Encounter Details Date Type Department Care Team (Late Contact Info) Description 05/07/2023 Telephone [facility] MEDICINE [address] [place] [address] Name, MD Matthew [address] [place] [address] Social History Tobacco Use Types Packs/Day Years Used Date Smoking Tobacco: Never Smokeless Tobacco: Never Alcohol Use Standard Drinks/Week Comments Never 0 (1 standard drink = 0.6 oz pur e alcohol) Depression Answer Date Recorded Patient Health Questionnaire-9 Score 0 07/31/2022 Depression Answer Date Recorded Patient Health Questionnaire-2 Score 0 07/31/2022 Sex and Gender Information Value Date Recorded Sex Assigned at Male 06/23/2022 10:39 AM EDT Legal Sex Male 10:39 AM EDT Gender Identity Male 06/23/2022 10:39 AM EDT Sexual Orientation Straight 06/23/2022 10 :39 AM EDT documented as of this encounter Plan of Treatment Upcoming Encounters Date Type Department Care Team (Late Contact Info) Description 05/30/2025 11:30 AM EDT Telemedicine [facility] CHC MED & PEDS [address] [facility] [place] [address] Moses Gonzalez MD [address] [place] [address] 06/14/2025 9:00 AM EDT Office Visit [facility] CHC MED & PEDS [address] [place] [address] Moses Gonzalez MD [address] [place] [address] 06/27/2025 9:00 AM EST Office Visit [facility] OPTOMETRY [address] [place] [address] Kyle, Kirstin, OD [address] [place] [address] 09/29/2025 10:00 AM EST Office Visit [facility] ADULT DENTAL [address] [place] [address] Escobar, Silvia [address] [place] [address] documented as of this encounter Visit Diagnoses Not on filedocumented in this encounter Additional Health Concerns Assessment Noted Time PHQ-9 Depression Total Score: 0 07/31/20 11:00 AM EST documented as of this encounter Care Teams Voice And Data Technician Relationship Specialty Start Date End Date Name, MD Matthew [address] [place] [phone] PCP - General Family Medicine 06/20/21 03/08/25 Moses Gonzalez MD [address] [place] [phone] PCP - General Internal Medicine 03/14/25 Yesika Michel PharmD [address] [place] [address] Pharmacist Internal Medicine 06/22/23 documented as of this encounter
--- OUTSIDE RECORDS SUMMARY | 2025-05-19 12:51 | XMS_ITS | Clinical Summary ---
Author Organization [facility] [address] [facility] Address [address] [place], [place] Phone Care Team Providers Care Data Miner Name Role Phone Srini Reyes MD Primary Care Provider [phone] Social History Tobacco Use Types Packs/Day Years [...] 11:00 AM EST Office Visit Adult Medicine [facility] [address] [place] [address] Srini Reyes MD [address] [place] [address] Health Maintenance Due Date Last Done Comments Diabetes: Annual GFR (Glomer ular Filtration Rate) 1952 Diabetes: Annual Foot Exam 1962 Diabetes: Annual Retina Eye Exam 1962 DTaP,Tdap,and Td Vaccines (1 - Tdap) 1971 Pneumococcal Vaccine: 50+ Ye ars (1 of 1 - PCV) 2002 Zoster Vaccines (1 of 2) 2002 RSV Immunization Adult Patie nts (1 - Risk 60-74 years 1-dose series) 2012 Abdominal Aortic Aneurysm (A AA) Screen 07/18/2024 Cholesterol Screening (Lipid Panel) 07/18/2024 Colorectal Cancer Screening: Colonoscopy 07/18/2024 Diabetes: Annual Urine Albumin-Creatinine Ratio (uACR) 07/18/2024 Diabetes: Blood Sugar Contro l Test (HGBA1C) 07/18/2024 Falls Risk Assessment 07/18/2024 Hepatitis C Screening 07/18/2024 Hypertension/CHF/CAD Annual BMP Blood Test 07/18/2024 Medicare Annual Wellness Visit 07/18/2024 Social Influencers of Health Screening 07/18/2024 Depression Screening 08/24/2024 COVID-19 Vaccine ( - 2023-2 5 season) 2025 Influenza Vaccine (#1) 2025 HIB Vaccines Aged [...] patient's age to complete this topic Insurance [facility] OPT[employer] Member Subscriber Plan / Payer (Ef fective 2021-Present) Name:Eddie Mike Relation to Subscriber:Self Name:Eddie Mike Payer ID:[id number] Group ID:Not on file Type:Not on file Address: [place] [address] [address] [id number] Care Teams Data Miner Relationship Specialty Start Date End Date Srini Reyes MD [address] [place] [address] PCP - General Internal Medicine 01/13/25
--- OUTSIDE RECORDS SUMMARY | 2025-05-19 12:51 | XMS_ITS | Encounter Summary ---
Author Organization [employer] Address [address] [place] [address] Care Team Providers Care Microsoft Infrastructure Consultant Name Role Phone Name, Matthew ARRINGTON Primary Care Provider [phone] Yesika Michel PharmD Unavailable [phone] Moses Gonzalez MD Primary Care Prov ider Reason for Visit * Reason Onset Date Comments Referral 03/29/2024 Nurse Triage 03/29/2024 Encounter Details Date Type Department Care Team (Late st Contact Info) Description 03/29/2024 Telephone [facility] MEDICINE [address] [place] [address] Name, MD Matthew [address] [place], [place] [phone] Referral; Nurse Triage Social History Tobacco Use Types Packs/Day Years [...] shut off services in your home? No 02/24/2024 Depression Answer Date Recorded Patient Health Questionnaire-2 Score 0 08/11/2023 Sex and Gender Information Value Date Recorded Sex Assigned at Male 06/23/2022 10:39 AM EDT Legal Sex Male 10:39 AM EDT Gender Identity Male 06/23/2022 10:39 AM EDT Sexual Orientation Straight 06/23/2022 10 :39 AM EDT documented as of this encounter Miscellaneous Notes * Telephone Encounter - Dahiana BainSAUL - 03/29/2024 11:18 AM EDT Triage call returned to patient [facility] LESLEY Roper. Jacquelin met with patient who reported that she was there to provide admission process for CHAIR hours. CHAIR will be 1 hour per day and will be followed with Care Management Q 60 days. When in the home patient denies being hypertensive and that when he is seen his BP has been fine. BPs reviewed with RN at time of call. Patient seen in last month with no HTN concerns. RN report in home 163/94 -150/94 .Patient due to not feeling that he has BP reports that he does not take BP medication for that reason. LESLEY Roper wants to address with PCP if patient requires medication management in home. Meds currently in bottles not in med box. Patient scheduled to be seen for med review with Yesika Michel. LESLEY Roper made aware. Patient without symptoms. No reported headaches. Patient called directly at home with [employer] cruise agent [phone]. Patient answers phone readily. Denies headache no blurred vision no chest pressure.Patient reports that is he is taking BP meds as ordered. Reviewed with patient reasons to call back. Pt verbalized understanding and agrees. Team tasked to follow with patient supervisor framing mill Jacquelin for med compliance. Multiple (2) protocols were used on this call. Disposition for Call: Home Care Protocol Used: Information Only Call - No Triage (Adult) Protocol-Based Disposition: Home Care Positive Triage Question: * Caller is not with the adult (patient) AND patient has probable NON-URGENT symptoms * All higher-acuity triage questions were negative Protocol Used: Blood Pressure - High (Adult) Protocol-Based Disposition: See in Office or Video Visit within 2 Weeks Override (Final) Disposition: Home Care Override Reason: Nurse judgment Override Notes: Team tasked with information from [facility] Video visit offer not recorded Positive Triage Question: * Systolic BP >= 130 OR Diastolic >= 80, and is taking BP medications * All higher-acuity triage questions were negative Care Advice Discussed: * Reasons To Call Back - Headache, blurred vision, difficulty talking, or difficulty walking occurs - Chest pain or difficulty breathing occurs - You want to go into the office for a blood pressure check - You become worse * Telephone Encounter - Evelyn Roberson - 03/29/2024 10:30 AM EDT Tc from Jacquelin nurse at [facility] requesting a referral for skill nursing services in order to managemedications due to pt having high blood pressure and pt stated he is not taking blood pressure medshowever Jacquelin did notice medications for the condition on pt meds. Please contact Jacquelin at [phone] Symptom: High Blood Pressure - Caller Reports Outcome: Schedule a same-day appointment or talk to a nurse or provider today Reason: Caller denied all higher acuity questions The caller accepted this outcome documented in this encounter Plan of Treatment Upcoming Encounters Date Type Department Care Team (Late st Contact Info) Description 05/30/2025 11:30 AM EDT Telemedicine [facility] MED & PEDS [address] [place] [address] Moses Gonzalez MD [address] [place] [address] 06/14/2025 9:00 AM EDT Office Visit [facility] [address] [place] [address] Moses Gonzalez MD [address] [place] [address] 06/27/2025 9:00 AM EST Office Visit [facility] OPTOMETRY [address] [place] [address] Kyle, Kirstin, OD [address] [place] [address] 09/29/2025 10:00 AM EST Office Visit [facility] ADULT DENTAL [address] [place] [address] Escobar, Silvia [address] [place] [address] documented as of this encounter Goals Goal Patient Goal Type Associated Problems [...] 9:18 AM EDT) No Puia, Yesika, PharmD documented as of this encounter Visit Diagnoses Not on filedocumented in this encounter Additional Health Concerns Assessment Noted Time PHQ-9 Depression Total Score: 0 08/11/20 23 2:42 PM EST documented as of this encounter Care Teams Microsoft Infrastructure Consultant Relationship Specialty Start Date End Date Name, MD Matthew [address] [place] [address] PCP - General Family Medicine 06/20/21 03/08/25 Moses Gonzalez MD [address] [place] [address] PCP - General Internal Medicine 03/14/25 Yesika Michel PharmD [address] [place] [phone] Pharmacist Internal Medicine 06/22/23 documented as of this encounter
--- OUTSIDE RECORDS SUMMARY | 2025-05-19 12:51 | XMS_ITS | Encounter Summary ---
Author Organization [employer] [facility] Address [address] [place] [address] Care Team Providers Care Marketing Sales Consultant Name Role Phone Name, Matthew ARRINGTON Primary Care Provider [phone] Yesika Michel PharmD Unavailable [phone] Moses Gonzalez MD Primary Care Prov ider Reason for Visit * Reason Onset Date Comments ER Follow-up 03/23/2023 Encounter Details Date Type Department Care Team (Late st Contact Info) Description 03/23/2023 Telephone [facility] MEDICINE [address] [place], [place] [phone] Name, MD Matthew [address] [place], [place] [phone] ER Follow-up Social History Tobacco Use Types Packs/Day Years [...] encounter Miscellaneous Notes * Telephone Encounter - Marlon Rodriguez RN - 03/24/2023 3:50 PM EDT T/ c to pt. Through [employer] id - [id number] for below message. Pt. States he is doing good. Medication given from ED is helping him. Pt. Schedule for ED follow up on 04/08/2023. Pt. Advised to go to nearest ED in case of any new or worsening symptoms including Severe pain in your back or side that will not go away., Blood in your urine, Fever and chills and Vomiting. ED dejuan Skinner. Pt. Verbally agreed and understood. Pt. Is looking for apt. Between 9.00 am to 2.00 pm only due to transportation. * Telephone Encounter - Yojana Ingram - 03/23/2023 2:26 PM EDT Tc from kelle with [facility] advising PCP of an ED visit. Pt was seen at [facility] on 03/20 for kidney stones. Advised will forward to team nurse for f/u. Please contact pt at [phone] (Ivorian) documented in this encounter Plan of Treatment Upcoming Encounters Date Type Department Care Team (Late st Contact Info) Description 05/30/2025 11:30 AM EDT Telemedicine [facility] MED & PEDS [address] [place] [address] Moses Gonzalez MD [address] [place] [address] 06/14/2025 9:00 AM EDT Office Visit [facility] CHC MED & PEDS [address] [place] [address] Moses Gonzalez MD [address] [place] [address] 06/27/2025 9:00 AM EST Office Visit [facility] OPTOMETRY [address] [place], [place] [phone] Kirstin Wright, OD [address] [place] [address] 09/29/2025 10:00 AM EST Office Visit [facility] ADULT DENTAL [address] [place], [place] [phone] Silvia Cody [address] [place] [address] documented as of this encounter Visit Diagnoses Not on filedocumented in this encounter Additional Health Concerns Assessment Noted Time PHQ-9 Depression Total Score: 0 07/31/20 22 11:00 AM EST documented as of this encounter Care Teams Marketing Sales Consultant Relationship Specialty Start Date End Date Name, MD Matthew [address] [place], [place] [phone] PCP - General Family Medicine 06/20/21 03/08/25 Moses Gonzalez MD [address] [place] [address] PCP - General Internal Medicine 03/14/25 Yesika Michel PharmD [address] [place] [address] Pharmacist Internal Medicine 06/22/23 documented as of this encounter
[2025-05-30 14:36] VITALS: BMI 33.2
--- NOTE | 2025-05-31 14:41 | HO.ANESPROP2 ---
Documented by User: Phoebe Bravo NP 05/31/25 14:41 HPI - Anesthesia Eval Consult details Narrative: 74 yr old male for colonoscopy Anesthesia Pre-Procedure Meds Is the patient on any of the following meds?: SGLT2 Inhib PMFSH Active Problems Active Problems: All Active Problems Tubular adenoma of colon (Acute) Chest pain (Acute) Urinary frequency (Acute) Nephrolithiasis (Acute) Renal cyst (Acute) Sebaceous cyst (Acute) H. pylori infection (Acute) GERD (gastroesophageal reflux disease) (Acute) Diarrhea (Acute) Epigastric pain (Acute) Bloody stools (Acute) Obese (Acute) Type 2 diabetes mellitus, with long-term current use of insulin (Acute) Dyslipidemia (Acute) Essential hypertension (Acute) Past Medical History Medical History Kidney stones Melena Bloody stools Obese Type 2 diabetes mellitus, with long-term current use of insulin Dyslipidemia Essential hypertension Family History Family History Mother No problems noted. Father No problems noted. Family history of problems with anesthesia: No Surgical History Surgical History H/O colonoscopy H/O excision of epidermal inclusion cyst (04/16/23) History of Problems with Anesthesia: No Social History Social History Housing: Apartment Alcohol intake: never Patient Tobacco Use Status: Never used Tobacco e-Cigarette/Vaping Use: Never Used Second Hand Smoke Exposure: No Use of substances other than those prescribed or required for medical reasons: No Advance Directives: No Advance Directives Information Provided: Yes service: No Current occupational status: disabled Meds Allergies Allergy/AdvReac Type Severity Reaction Status Date / Time No Known Allergies Allergy Verified 04/07/25 12:04 Home Medications ?Medication ?Instructions ?Recorded ?Confirmed ?Last Taken ?Type blood sugar diagnostic #10 ea 03/18/21 03/24/23 Unknown History pen needle, diabetic 31 gauge x #1,200 ea 03/18/21 03/24/23 Unknown History 01/06 empagliflozin 5 mg-metformin ER 1 tab PO BID 07/06/24 05/30/25 02/14/25 History 1,000 mg tablet,extended release 24 hr (Synjardy XR) insulin glargine 100 unit/mL (3 20 unit subcut BEDTIME 07/06/24 05/30/25 Unknown History mL) subcutaneous pen losartan 25 mg tablet 25 mg PO DAILY 07/06/24 05/30/25 Unknown History Exam Height,Weight and Vital Signs: Height 5 ft 7 in Weight 96.162 kg Assessment and Plan Final Anesthetic Review Family History of Problems with Anesthesia: No History of Problems with Anesthesia: No Documented by User: Yony Gill MD 06/01/25 11:04 [facility] Past Medical History Medical History Kidney stones Melena Bloody stools Obese Type 2 diabetes mellitus, with long-term current use of insulin Dyslipidemia Essential hypertension Family History Family History Mother No problems noted. Father No problems noted. Surgical History Surgical History H/O colonoscopy H/O excision of epidermal inclusion cyst (04/16/23) Social History Social History Housing: Apartment Alcohol intake: never Patient Tobacco Use Status: Never used Tobacco e-Cigarette/Vaping Use: Never Used Second Hand Smoke Exposure: No Use of substances other than those prescribed or required for medical reasons: No Advance Directives: No Advance Directives Information Provided: Yes service: No Current occupational status: disabled Meds Allergies Allergy/AdvReac Type Severity Reaction Status Date / Time No Known Allergies Allergy Verified 04/07/25 12:04 Home Medications ?Medication ?Instructions ?Recorded ?Confirmed ?Last Taken ?Type blood sugar diagnostic #10 ea 03/18/21 03/24/23 Unknown History pen needle, diabetic 31 gauge x #1,200 ea 03/18/21 03/24/23 Unknown History / empagliflozin 5 mg-metformin ER 1 tab PO BID 07/06/24 05/30/25 02/14/25 History 1,000 mg tablet,extended release 24 hr (Synjardy XR) insulin glargine 100 unit/mL (3 20 unit subcut BEDTIME 07/06/24 05/30/25 Unknown History mL) subcutaneous pen losartan 25 mg tablet 25 mg PO DAILY 07/06/24 05/30/25 Unknown History Exam Exam Date and Time: 06/01/2025 Airway Mallampati Class: II TM Dist: >3cm Neck ROM: Full Denture: Upper Partial: Lower Loose/Missing/Broken Teeth: No Heart: normal Lungs: normal Other: normal Assessment and Plan Final Anesthetic Review NPO: Yes ASA Class: II Final Preanesthetic Review: No Changes in Pt Med Stat, Meds/Allgs Chart Reviewed, Consent Obtained/Reviewed and Anes Risks/Benef Reviewed Patient Risk: Low Procedure Risk: Low Anesthetic Plan Anesthetic Plan: MAC: Disposition: Standard PACU
--- NOTE | 2025-06-01 09:51 | MHC.SHP ---
Pre-Procedural Eval Section A - 24 Hr Update-Section A only Date of Service: 06/01/25 Section B - Complete if H&P > 30 days Chief Complaint: colon polyps Relevant Family History (Specify if Yes): No Relevant Social History: None Present Medications: see Short Stay Collaborative assessment Medical History: Significant History (Kidney stones Melena Bloody stools Obese Type 2 diabetes mellitus, with long-term current use of insulin Dyslipidemia Essential hypertension) History of Previous Operations: Relevant previous surgery/procedure and date(s) (H/O colonoscopy H/O excision of epidermal inclusion cyst (04/16/23)) Allergies: Allergies Allergy/AdvReac Type Severity Reaction Status Date / Time No Known Allergies Allergy Verified 04/07/25 12:04 Review of Systems Sugical H&P ROS: Negative: Constitution, Cardiovascular, Respiratory, Neurological, Psychiatric, Hem-Onc, Allergic/Immunologic, Gastrointestinal, Genitourinary, Musculoskeletal, Integumentary, Endocrine and Eyes/Ears/Nose/Throat Exam Surgical H&P Exam: Normal: HEENT, Normal: Heart, Normal: Lungs, Normal: Extremities, Normal: Abdomen, Normal: Skin and Normal: Neurological Plan Diagnosis/Plan: Unchanged I have reviewed the history and physical and performed a pertinent physical examination on my patient. No changes have occurred unless specified. Time Spent With Patient Time: Total time managing care of this patient today ____ minutes.
[2025-06-01 10:14] VITALS: BMI 32.5
[2025-06-01 10:30] VITALS: BP 155/87; PULSE 83; RESP 16; TEMP 36.6; O2SAT 96
[2025-06-01 10:30] LABS: Glucose, Whole Blood 158 mg/dL (60-115)
[2025-06-01] MEDS: Lactated Ringers 1,000 ML 100 ML IVCONT (10:32)
--- NOTE | 2025-06-01 12:17 | HO.OPN-COLON ---
Colonoscopy Operative Note Operative Note Date of Service: 06/01/25 Narrative: Operative Information Procedure Description: Colonoscopy Indication: hx of colon polyps Anesthesia: MAC COLONOSCOPY Instrument: Olympus variable stiffness pediatric scope 190L Colonoscopy Monitoring: Vital signs and clinical assessment, continuous EKG monitoring, Pulse oximetry, Carbon Dioxide monitoring and blood pressure monitoring were done throughout the procedure. Colon withdrawal time was 30 minutes. Procedure: The patient was placed in the left lateral decubitis position and pre-procedure medications were administered. After a digital rectal examination of the ano-rectum, the video colonoscope was inserted into the rectum and advanced through the colon to the cecum/TI. The colonoscope was slowly withdrawn in a retrograde panoramic fashion and the colon mucosa was carefully examined including a retroflexed view of the rectum. Findings and interventions are described below. Procedure Difficulty: moderate Findings: Terminal Ileum-normal Cecum:normal Ascending Colon: normal Transverse Colon - 5-7 mm sessile polyp removed with cold forceps Descending Colon: x 2 sessile polyps 10-12 mm removed with cold snare Sigmoid Colon: moderate severe diverticulosis, x 1 pedunculated polyp 14-15 mm injected with epinephrine and removed with hot snare with x 2 clips applied, x 4 sessile polyps 10-12 mm removed with cold snare and x 1 area with x 2 clips applied Rectum: Retroflexion with small internal hemorrhoids seen, grade I Anorectum - normal Intervention: cold snare with epinephrine, cold snare, cold forceps, and clips Colon preparation: [place] Bowel Preparation Scale Right colon; 1-2 Transverse colon: 2 Left colon; 2 (0 = Unprepared colon segment with mucosa not seen due to solid stool that cannot be cleared. 1 = Portion of mucosa of the colon segment seen, but other areas of the colon segment not well seen due to staining, residual stool and/or opaque liquid. 2 = Minor amount of residual staining, small fragments of stool and/or opaque liquid, but mucosa of colon segment seen well. 3 = Entire mucosa of colon segment seen well with no residual staining, small fragments of stool or opaque liquid) Impression and Post Procedure Diagnosis: diverticulosis colon polyps x 8 internal hemorrhoids Plan: High fiber diet leaflet Avoid straining at stool, epsom salts and sitz bath, anusol supps or cream Repeat Colonoscopy in 1 year or earlier if clinically indicated Above findings were reviewed with the patient and relevant handouts were provided if indicated.
[2025-06-01 12:23] VITALS: BP 157/95; PULSE 70; RESP 16; TEMP 36.4; O2SAT 96
[2025-06-01 12:38] VITALS: BP 154/90; PULSE 74; RESP 16; TEMP 36.2; O2SAT 99
== END 2025-06-01 13:14 | disposition home or self-care (01) ==
PROVIDERS: Visit Provider Internal Medicine Gastroenterology
PROC: 0DJD8ZZ Inspection of Lower Intestinal Tract, Via Natural or Artificial Opening Endoscopic (ICD-10-PCS; CPT 45378; principal; 2025-06-01 10:50)
DX: K57.30 Diverticulosis of large intestine without perforation or abscess without bleeding (principal); Z86.0101 Personal history of adenomatous and serrated colon polyps; Z09 Encounter for follow-up examination after completed treatment for conditions other than malignant neoplasm; D12.4 Benign neoplasm of descending colon; D12.5 Benign neoplasm of sigmoid colon; D12.3 Benign neoplasm of transverse colon; K64.0 First degree hemorrhoids
CPT/HCPCS: 45380; 45385; 45381; 82947; 88305; J2003; J2704; J3010

== ENCOUNTER → 2025-06-01 08:09 | Outpatient (BNV) | payer OTHER, SELFPAY | PROVIDERS: Visit Provider Internal Medicine Gastroenterology | DX: Z12.11 Encounter for screening for malignant neoplasm of colon (principal); Z86.0100 Personal history of colon polyps, unspecified; D12.3 Benign neoplasm of transverse colon; D12.4 Benign neoplasm of descending colon; D12.5 Benign neoplasm of sigmoid colon; K57.30 Diverticulosis of large intestine without perforation or abscess without bleeding; K64.0 First degree hemorrhoids | CPT/HCPCS: 45380; 45381; 45385 ==